=== PATIENT | male | born 1950 | race Caucasian/White ===

== ENCOUNTER 2020-02-03 00:32 | Inpatient (IN) | payer OTHER, SELFPAY ==
[2020-02-03] VITALS (11 sets, daily range): BP systolic 98–142; BP diastolic 60–88; PULSE 82–96; RESP 15–20; TEMP 36.2–36.8; O2SAT 96–100; BMI 18.7
--- NOTE | 2020-02-03 00:53 | ED.PSYCH ---
HPI - Psych General Chief Complaint: Psychiatric Symptoms Stated Complaint: psych eval Time Seen by Provider: 02/03/20 00:47 Source: patient and EMS Mode of arrival: EMS Limitations: no limitations History of Present Illness HPI Narrative: Patient comes to emergency room complaining suicidal ideation. Patient states for months he has been feeling weak, unable to do his daily activities due to depression. States that he no longer wants to live, states he is too depressed to come up with a plan to kill himself. Patient's girlfriend called EMS. Patient reports that he has not been eating much for the last few months MD complaint: suicidal ideation and feels depressed Related Data Allergies Allergy/AdvReac Type Severity Reaction Status Date / Time bee pollen [BEE STINGS] Allergy Unknown ARM Verified 02/03/20 00:43 SWELLING codeine [CODEINE] Allergy Unknown HIVES, Verified 02/03/20 00:43 NAUSEA bee stings Allergy Unknown Swelling Uncoded 02/03/20 00:43 Review of Systems Review of Systems: Constitutional : Complaining of Weight loss over the last 2-3 months, No Fever, No Chills, No Night Sweats, generalized weakness ENT/Mouth : No Hearing loss, No Ear Pain, No Nasal Congestion, No Sinus Pain, No Hoarseness, No sore throat, No Rhinorrhea, No Swallowing Difficulty Eyes: No Eye Pain, No Swelling, No Redness, No Foreign Body, No Discharge, No Vision Changes Cardiovascular : No Chest Pain, No SOB, No Dyspnea on Exertion, No Orthopnea, No Edema, No Palpitations Respiratory : No Cough, No Sputum, No Wheezing, No Smoke Exposure, No Dyspnea Gastrointestinal : No Nausea, No Vomiting, No Diarrhea, No Constipation, No abdominal Pain, No Hematochezia, No Melena Genitourinary : no irregular bleeding, No Dysuria, No Urinary Frequency, No Hematuria, No Urinary Incontinence, No Urgency, No Flank Pain, No Urinary Flow Changes, No Hesitancy Musculoskeletal : No joint pain, patient complaining of chronic pain ?all over? Skin : No Skin Lesions, No rash Neuro : No Weakness, No Numbness, No Paresthesias, No Loss of Consciousness, No Dizziness, No Headache Psych : No Anxiety/Panic, No Depression, No SI/HI/AH/VH, No Social Issues, Heme/Lymph: No Bruising, No Bleeding,No Lymphadenopathy Endocrine : No Polyuria, No Polydipsia, No Temperature Intolerance [facility] Past Medical History Medical History Auditory hallucinations Hepatitis C Hypertension Polysubstance abuse Seizures Social History Social History Advance Directives: No Advance Directives Information Provided: No Physical Exam Vital Signs: Vital Signs: Last Vital Signs Temp 97.6 F 02/03/20 00:44 Pulse 82 02/03/20 00:44 Resp 16 02/03/20 00:44 BP 142/88 H 02/03/20 00:44 Pulse Ox 100 02/03/20 00:44 Body Mass Index 18.7 Appearance: Alert. Oriented X3. No acute distress. Disheveled, cachectic Eyes: Pupils equal, round and reactive to light. ENT: Pharynx normal. Neck: Normal inspection. Neck supple. No lymph nodes noted. No crepitus CVS: Normal heart rate and rhythm. Pulses normal. Normal S1 and S2 Respiratory: No respiratory distress. Breath sounds normal. No Wheezing. No rales Abdomen: Soft and nontender. No rigidity. No distention. Skin: Skin warm and dry. Normal skin color. Normal skin turgor. Extremities: No lower extremity edema. No lower extremity edema. No Lacerations. No Rash Neuro: Oriented X 3. No motor deficit. No sensory deficit. Moving all extermities. No slurred speech. Psych: Flat affect, normal speech Course Course Course Narrative: Patient's labs are pending, medical clearance pending, [facility] consult pending. Sign-out given to Dr. Payan [facility] - Psych Restraints Face to Face Assessment: Face to Face Assessment: Current Situation: After assessment of the patient, a review of the pertinent medical record and a discussion with nursing staff, I feel the patient requires a restrain intervention. Reaction To: [] Medical Condition: [] Behavioral State: [] Continued Need: [] Lab Data Result diagrams: 02/03/20 01:01 02/03/20 01:01 Labs: Lab Results 02/03/20 Range/Units 01:01 WBC 6.8 (4.8-10.8) X10*3/uL RBC 5.27 (4.60-5.80) X10*6/uL Hgb 14.6 (14.0-18.0) g/dl Hct 46.0 (42-52) % MCV 87.3 (80-98) fL MCH 27.7 (27.0-33.0) pg MCHC 31.7 (31.0-36.0) g/dl RDW 13.2 (11.0-16.0) % Plt Count 214 (160-400) X10*3/uL MPV 10.6 (9.4-12.4) fL Immature Gran % (Auto) 0.0 (0.0-0.4) % Neut % (Auto) 44.5 L (45-73) % Lymph % (Auto) 43.8 H (20-40) % [place] % (Auto) 9.1 (2-11) % Eos % (Auto) 2.2 (0-4) % Baso % (Auto) 0.4 (0-2) % Lymph # (Auto) 3.0 (1.2-4.9) X10*3/uL Thomas # (Auto) 0.6 (0.1-1.2) X10*3/uL Eos # (Auto) 0.2 (0.0-0.4) X10*3/uL Baso # (Auto) 0.0 (0.0-0.2) X10*3/uL Abs Immat Gran (auto) 0.00 (0.00-0.03) X10*3/uL Absolute Neuts (auto) 3.0 (2.0-8.3) X10*3/uL Absolute Nucleated RBC 0.000 (0.0-0.012) X10*3/uL Nucleated RBC % (auto) 0.0 (0.0-0.2) /100WBC Discharge Plan Discharge Clinical Impression: Suicidal ideation
[2020-02-03 01:07] LABS: Basophils Percent Auto 0.4 % (0-2); Eosinophils Absolute Auto 0.2 X10*3/uL (0.0-0.4); Eosinophils Percent Auto 2.2 % (0-4); Hemoglobin 14.6 g/dl (14.0-18.0); Lymphocytes Percent Auto 43.8 % (20-40); Mean Corpuscular HGB Conc 31.7 g/dl (31.0-36.0); Mean Corpuscular Hemoglobin 27.7 pg (27.0-33.0); Mean Corpuscular Volume 87.3 fL (80-98); Mean Platelet Volume 10.6 fL (9.4-12.4); Monocytes Absolute Auto 0.6 X10*3/uL (0.1-1.2); Monocytes Percent Auto 9.1 % (2-11); Neutrophils Percent Auto 44.5 % (45-73); Platelet Count 214 X10*3/uL (160-400); Red Blood Count 5.27 X10*6/uL (4.60-5.80); Red Cell Distribution Width 13.2 % (11.0-16.0); White Blood Count 6.8 X10*3/uL (4.8-10.8)
[2020-02-03 01:08] LABS: MANUAL DIFF FLAG NO
[2020-02-03 01:38] LABS: Alanine Aminotransferase 18 U/L (0-40); Albumin Level 4.5 g/dL (3.5-5.0); Alkaline Phosphatase 53 U/L (39-117); Anion Gap 12 (12-20); Aspartate Amino Transferase 20 U/L (5-37); Bilirubin Direct 0.3 mg/dL (0.0-0.5); Bilirubin Total 0.7 mg/dL (0.0-1.0); Blood Urea Nitrogen 11 mg/dL (9-16); Calcium 9.5 mg/dL (8.4-10.2); Carbon Dioxide 31 mmol/L (22-29); Chloride 104 mmol/L (96-108); Creatinine Clr Calc Pharmacy 70.8; Estimated Glomerular Filt Rate > 60; Glucose Random 101 mg/dL (60-115); Potassium 3.6 mmol/l (3.3-5.1); Sodium 143 mmol/L (135-145); Total Protein 7.1 g/dL (6.5-8.0)
[2020-02-03 02:37] LABS: Prothrombin Time 12.3 SEC (10.8-13.0)
--- NOTE | 2020-02-03 03:31 | PC.NURSE ---
Patient ambulated to ED POD, gait secured, mood seems depressed, affect congruent to mood, N faxed/called/spoke with denis Morales clinician overnight per N, patient is in his room wandering, no distress observed/reported, will continue to monitor.
[2020-02-03 04:46] LABS: COVID-19 Test Negative (Negative)
--- NOTE | 2020-02-03 07:14 | PC.NURSE ---
Report received from GIRISH Rubio. Pt awake, pacing. Affect anxious. Pt anxious about his body, noting to RN that he is thin, showing his knees and shoulders to RN. Pt maintains that he is having difficulty eating, states he is unable to keep food down though has been able to drink strawberry ensure.
--- NOTE | 2020-02-03 08:18 | ECG_ITS ---
Test Reason : PLACEMENT Blood Pressure : / mmHG Vent. Rate : 086 BPM Atrial Rate : 086 BPM P-R Int : 128 ms QRS Dur : 088 ms QT Int : 350 ms P-R-T Axes : 081 066 062 degrees QTc Int : 418 ms Normal sinus rhythm with sinus arrhythmia Possible Left atrial enlargement Borderline ECG When compared with ECG of 23-MAR-2018 15:42, Vent. rate has increased BY 29 BPM Borderline criteria for Lateral infarct are no longer Present T wave inversion no longer evident in Inferior leads Referred By: Katherine Davenport Electronically Signed By:AMELIA KEANE MD
--- NOTE | 2020-02-03 08:40 | PC.NURSE ---
Pt seen by N, continues to pace in room.
--- NOTE | 2020-02-03 09:23 | PC.NURSE ---
Pt weight: 57 KG
[2020-02-03] MEDS: LORazepam 1 MG TABLET PO ×2 (09:25→15:51)
--- NOTE | 2020-02-03 11:47 | PC.NURSE ---
Pt able to eat yogurt, drank an ensure after receiving Ativan, then lay down to rest. Pt currently resting, resp unlabored.
[2020-02-03 14:24] LABS: Glucose Urine UA NEG (NEG); Leukocyte Esterase Urine NEG (NEG); Nitrite Urine NEG (NEG); PH 6.5 (5.0-8.0); Urine Blood NEG (NEG); Urine Ketones 5 MG/DL (NEG); Urine Protein TRACE MG/DL (NEG-TRACE)
[2020-02-03 14:25] LABS: Appearance Urine HAZY; Color Urine YELLOW
[2020-02-03 14:54] LABS: Amphetamine Screen Urine Not Detected (Not Detect); Barbiturates, Urine Not Detected (Not Detect); Benzodiazepines Screen Urine Not Detected (Not Detect); Cannabinoid Screen Urine Not Detected (Not Detect); Cocaine Screen Urine Not Detected (Not Detect); Opiate Screen Urine Not Detected (Not Detect); Phencyclidine Screen Urine Not Detected (Not Detect)
--- NOTE | 2020-02-03 17:15 | PC.NURSE ---
Pt out on unit, watching television, reports he feels much better, interested in shaving, but aware that he can't shave on unit.
--- NOTE | 2020-02-03 18:55 | PC.NURSE ---
Report given to ronak meng on m5
--- NOTE | 2020-02-03 19:03 | PC.NURSE ---
Patient calm, quiet, and pleasant. Wandering in POD was seen on phone few times, RN to RN report done with M5, EKG is in process of getting done, awaiting admission to , per report patient has been eating well, no distress observed/reported, will continue to monitor.
[2020-02-03] MEDS: LORazepam 1 MG TABLET 0.5 MG PO (21:50)
[2020-02-03] MEDS: Mirtazapine 15 MG TABLET PO (21:50)
[2020-02-03] MEDS: Flu Vacc QS2020-21(6mos up)/PF 0.5 ML SYRINGE IM (21:51)
[2020-02-03] MEDS: Acetaminophen 325 MG TABLET 650 MG PO (21:58)
--- NOTE | 2020-02-03 22:30 | PC.ADMIT ---
PT WAS REFERRED TO BY N VIA [facility]. LEGAL CV. DX MDD. PT HAS NOT SEEN PCP OR ANY OUTPATIENT PROVIDERS FOR OVER A YEAR. REPORTS THAT HE STOPPED SEEING PROVIDERS AFTER WEANING OFF OF METHADONE. REPORTS HX OF SUBSTANCE ABUSE. NO ALCOHOL OR STREET DRUG USE. SILVER WAS NEGATIVE. REPORTS COMING TO THE ER AFTER DISCUSSION WITH S.O. ABOUT WANTING TREATMENT FOR ANXIETY. S.O. HAS PROVIDERS AND PROVIDERS THAT COME INTO THE HOUSE AND WOULD LIKE THE SAME SERVICES. WOULD ALSO LIKE TO ESTABLISH BEHAVIORAL HEALTH PROVIDERS. PT IS BRIGHT AND ARTICULATE. IS NOT ON ANY PRESCRIBED MEDICATIONS AT THIS TIME. DOES HAVE HX OF ARTHRITIS, HTN, HEP C, HX OF SEIZURES WHEN IN W/D. ACCEPTED FLU SHOT. ORIENTED TO UNIT.
[2020-02-03] MEDS: hydrOXYzine HCL 25 MG TABLET PO (23:31)
[2020-02-04 06:25] VITALS: BP 111/61; PULSE 58; RESP 16; TEMP 36.6; O2SAT 97
[2020-02-04] MEDS: Nicotine 7 MG PATCH.TD24 TRANSDERMA (09:36)
[2020-02-04] MEDS: Acetaminophen 325 MG TABLET 650 MG PO ×2 (09:47→19:00)
[2020-02-04] MEDS: LORazepam 1 MG TABLET 0.5 MG PO ×2 (09:51→18:09)
--- NOTE | 2020-02-04 17:48 | P.HPPS_ITS ---
HPI Chief Complaint: MDD Severe Recurrent Sources of Information: patient interviewed, chart reviewed and crisis/core team assessment reviewed HPI Narrative: I pace a lot . The anxiety is terrible . 69 yo male, living with his girlfriend admitted for an increase in depressive symptoms, racing and intrusive thoughts and anxiety. Symptoms he reports have been for approx 2 months, crisis team eval reports since Feb 2019. Reports pain- neck, back, hip, along with sleep disturbance and appetite disturbance with denial of weight loss. He also has not been attending to ADL tasks. Reports SI and asking his girlfriend to shoot him. Pt identifies no specific stressor/precipitant to symptom increase.He reports by history a resistance to medication, however, reports he will accept medication to assist in symptom mgt. Past Psychiatric History: In Pt: 2018 x 1; 2010 x1. History of psychosis per Van doll. Out Pt: No current providers. Trials: Xanax, Ambien, Restoril, Ativan Medical Evaluation Reviewed: Yes [facility] Medical History Auditory hallucinations Hepatitis C Hypertension Polysubstance abuse Seizures Family History: Reports addiction and mental illness history in his family. Social History: Lives with his partner, Ronna whom he has been with for fifteen years he reports Substance History: Methadone by history-stopped in 2018; Cannabis increase over the past several months. Trauma History: Yes . Declines to elaborate on this. Diagnostics Vital Signs (24Hr): Vital Signs - 24 hr 02/03/20 18:00 02/03/20 21:50 02/04/20 06:25 Temperature 98.2 F 97.9 F Pulse Rate 88 58 Respiratory Rate 20 16 Blood Pressure 102/60 111/61 Pulse Oximetry 96 97 Body Mass Index 18.7 Labs Results: 02/03/20 01:01 02/03/20 01:01 Labs: Laboratory Results - last 48 hr 02/03/20 02/03/20 02/03/20 01:01 01:01 02:08 WBC 6.8 RBC 5.27 Hgb 14.6 Hct 46.0 MCV 87.3 MCH 27.7 MCHC 31.7 RDW 13.2 Plt Count 214 MPV 10.6 Immature Gran % (Auto) 0.0 Neut % (Auto) 44.5 L Lymph % (Auto) 43.8 H [place] % (Auto) 9.1 Eos % (Auto) 2.2 Baso % (Auto) 0.4 Lymph # (Auto) 3.0 [place] # (Auto) 0.6 Eos # (Auto) 0.2 Baso # (Auto) 0.0 Abs Immat Gran (auto) 0.00 Absolute Neuts (auto) 3.0 Absolute Nucleated RBC 0.000 Nucleated RBC % (auto) 0.0 PT 12.3 INR 1.0 Sodium 143 Potassium 3.6 Chloride 104 Carbon Dioxide 31 H Anion Gap 12 BUN 11 Creatinine 0.79 Estim Creat Clear Calc 70.8 Estimated GFR > 60 Random Glucose 101 Calcium 9.5 Total Bilirubin 0.7 Direct Bilirubin 0.3 AST 20 ALT 18 Alkaline Phosphatase 53 Total Protein 7.1 Albumin 4.5 Urine Color Urine Appearance Urine pH Ur Specific [place] Urine Protein Urine Glucose (UA) Urine Ketones Urine Blood Urine Nitrite Ur Leukocyte Esterase Urine Opiates Screen Ur Barbiturates Screen Ur Phencyclidine Scrn Ur Amphetamines Screen U Benzodiazepines Scrn Urine Cocaine Screen U Marijuana (THC) Screen COVID-19 (SUKI) COVID-GigaCrete 02/03/20 02/03/20 02/03/20 04:11 14:16 14:16 WBC RBC Hgb Hct MCV MCH MCHC RDW Plt Count MPV Immature Gran % (Auto) Neut % (Auto) Lymph % (Auto) [place] % (Auto) Eos % (Auto) Baso % (Auto) Lymph # (Auto) [place] # (Auto) Eos # (Auto) Baso # (Auto) Abs Immat Gran (auto) Absolute Neuts (auto) Absolute Nucleated RBC Nucleated RBC % (auto) PT INR Sodium Potassium Chloride Carbon Dioxide Anion Gap BUN Creatinine Estim Creat Clear Calc Estimated GFR Random Glucose Calcium Total Bilirubin Direct Bilirubin AST ALT Alkaline Phosphatase Total Protein Albumin Urine Color YELLOW Urine Appearance HAZY Urine pH 6.5 Ur Specific [place] 1.020 Urine Protein TRACE Urine Glucose (UA) NEG Urine Ketones 5 Urine Blood NEG Urine Nitrite NEG Ur Leukocyte Esterase NEG Urine Opiates Screen Not Detected Ur Barbiturates Screen Not Detected Ur Phencyclidine Scrn Not Detected Ur Amphetamines Screen Not Detected U Benzodiazepines Scrn Not Detected Urine Cocaine Screen Not Detected U Marijuana (THC) Screen Not Detected COVID-19 (SUKI) Negative COVID-GigaCrete See Note Meds/Allergies Meds Home Medications Acetaminophen (Acetaminophen 325 Mg Tablet) 650 mg PO Q6H PRN PRN Reason: Headache/Pain Mild Scale (1-3) Last Admin: 02/04/20 09:47 Dose: 650 mg Documented by: Al Hydroxide/Mg Hydroxide (Magnesium Hydrox/Alum Hydrox 30 Ml Oral.Susp) 30 ml PO Q6H PRN PRN Reason: Heartburn/Nausea Hydroxyzine HCl (Hydroxyzine Hcl 25 Mg Tablet) 25 mg PO BEDTIME PRN PRN Reason: Anxiety Last Admin: 02/03/20 23:31 Dose: 25 mg Documented by: Lorazepam (Lorazepam 1 Mg Tablet) 0.5 mg PO Q4H PRN PRN Reason: Anxiety Last Admin: 02/04/20 18:09 Dose: 0.5 mg Documented by: Magnesium Hydroxide (Milk Of Magnesia 30 Ml Oral.Susp) 30 ml PO DAILY PRN PRN Reason: Constipation Mirtazapine (Mirtazapine 15 Mg Tablet) 15 mg PO BEDTIME [facility] Last Admin: 02/03/20 21:50 Dose: 15 mg Documented by: Nicotine (Nicotine 7 Mg Patch.Td24) 7 mg TRANSDERMA DAILY [facility] Last Admin: 02/04/20 09:36 Dose: 7 mg Documented by: Nicotine Polacrilex (Nicotine Polacrilex 2 Mg Lozenge) 2 mg BUCCAL Q2H PRN PRN Reason: Nicotine Cravings Allergies Allergies Allergy/AdvReac Type Severity Reaction Status Date / Time bee pollen [BEE STINGS] Allergy Unknown ARM Verified 02/03/20 00:43 SWELLING codeine [CODEINE] Allergy Unknown HIVES, Verified 02/03/20 00:43 NAUSEA bee stings Allergy Unknown Swelling Uncoded 02/03/20 00:43 Mental Status Exam Mental Status Exam Patient Appearance: Fatigued and Disheveled Patient Orientation: Person, Place and Situation Level of Consciousness: Awake, Appropriate, Disoriented (to time) and Alert Patient Behavior: Appropriate, Talkative, Cooperative, Anxious and Fatigued Mood Description: Depressed and Anxious Affect Description: Flat Patient Cognition Impaired: Yes Ability to Follow Directions: Fair Speech Pattern: Clear, Impoverished, Difficulty Finding Words and Spontaneous Speech Memory Description: Remote Impaired, Immediate Impaired, Episodic Impaired and Recent Impaired Hallucinations: None Delusions: Not Present Thought Process: Distracted and Rumination Thought Content: positive for [place] and positive for [place]sever[place] Depressive Symptoms: Increased Anxiety, Insomnia, Diff. Making Decisions, Increased Irritability, Difficulty Sleeping, Changes in Appetite, Loss of Int. in Activity, Feelings of Worthlessness, Hopelessness, Isolating-Friends/Family, Unhappiness, Increased Fatigue, Low Self Esteem, Loss of Energy and Back Pain Judgement: Poor Assessment & Plan Assessment & Plan (1) Depression: Status: Acute Code(s): F32.9 - Major depressive disorder, single episode, unspecified Assessment and Plan: -Continue Remeron -Abilify 1 mg hs-hx of psychotic depression 2019 Patient educated on: medication risk/benefits and therapeutic strategies Informed Consent: does not understand and further education needed Reason for continued inpatient stay Substantial Risk for: harm to self, inability to function, rapid decompensation and med/psych decompensation
[2020-02-04 18:55] VITALS: BP 92/54; PULSE 83; TEMP 36.4
[2020-02-04] MEDS: Mirtazapine 15 MG TABLET PO (20:52)
[2020-02-05 06:25] VITALS: BP 125/71; RESP 16; TEMP 36.4; O2SAT 100
[2020-02-05] MEDS: Acetaminophen 325 MG TABLET 650 MG PO ×2 (06:33→13:16)
[2020-02-05] MEDS: LORazepam 0.5 MG TABLET PO ×3 (06:34→18:14)
[2020-02-05] MEDS: Nicotine 7 MG PATCH.TD24 TRANSDERMA (08:19)
--- NOTE | 2020-02-05 18:02 | P.PNPSI_ITS ---
Subjective Subjective Date of Service: 02/05/20 Reason For Visit: MDD Severe Recurrent Interim History: Pt reports he is tolerating medicine changes and is feeling tired today. Medication Compliance: Yes Side effects from medications: No Attending Groups: Intermittent Review of Systems Psychiatric: Reports anxiety, Reports change in appetite (states he is eating better than at home) and Reports depression Mental Status Exam Mental Status Exam Patient Appearance: Disheveled Patient Orientation: Person, Place, Time and Situation Level of Consciousness: Awake and Alert Patient Behavior: Appropriate and Confused (at times) Mood Description: Depressed Affect Description: Flat Patient Cognition Impaired: Yes Ability to Follow Directions: Fair Speech Pattern: Clear, Appropriate and Spontaneous Speech Memory Description: Remote Impaired, Immediate Impaired and Recent Impaired Hallucinations: None Delusions: Not Present Thought Process: Distracted, Rumination and Confusion (at times) Thought Content: positive for [place] Depressive Symptoms: Increased Anxiety, Insomnia, Difficulty Sleeping, Changes in Appetite, Significant Weight Loss and Loss of Int. in Activity Judgement: Fair Diagnostics Vital Signs (24Hr): Vital Signs - 24 hr 02/04/20 18:55 02/05/20 06:25 Temperature 97.6 F 97.6 F Pulse Rate 83 Respiratory Rate 16 Blood Pressure 92/54 L 125/71 Pulse Oximetry 100 Body Mass Index 18.7 Labs Results: 02/03/20 01:01 02/03/20 01:01 Medications Medications Current Medications Generic Name Dose Route Start Last Admin Trade Name Freq PRN Reason Stop Dose Admin Acetaminophen 650 mg 02/03/20 20:01 02/05/20 13:16 Acetaminophen 325 Mg Tablet PO 650 mg Q6H PRN Administration Headache/Pain Mild Scale (1-3) Al Hydroxide/Mg Hydroxide 30 ml 02/03/20 20:01 Magnesium Hydrox/Alum Hydrox 30 Ml Oral.Susp PO Q6H PRN Heartburn/Nausea Hydroxyzine HCl 25 mg 02/03/20 20:01 02/03/20 23:31 Hydroxyzine Hcl 25 Mg Tablet PO 25 mg BEDTIME PRN Administration Anxiety Lorazepam 0.5 mg 02/04/20 18:33 02/05/20 11:15 Lorazepam 0.5 Mg Tablet PO 0.5 mg Q4H PRN Administration Anxiety Magnesium Hydroxide 30 ml 02/03/20 20:01 Milk Of Magnesia 30 Ml Oral.Susp PO DAILY PRN Constipation Mirtazapine 15 mg 02/03/20 21:00 02/04/20 20:52 Mirtazapine 15 Mg Tablet PO 15 mg BEDTIME CANDY Administration Nicotine 7 mg 02/04/20 09:00 02/05/20 08:19 Nicotine 7 Mg Patch.Td24 TRANSDERMA 7 mg DAILY CANDY Administration Nicotine Polacrilex 2 mg 02/03/20 20:55 Nicotine Polacrilex 2 Mg Lozenge BUCCAL Q2H PRN Nicotine Cravings Allergies Allergies Allergy/AdvReac Type Severity Reaction Status Date / Time bee pollen [BEE STINGS] Allergy Unknown ARM Verified 02/03/20 00:43 SWELLING codeine [CODEINE] Allergy Unknown HIVES, Verified 02/03/20 00:43 NAUSEA bee stings Allergy Unknown Swelling Uncoded 02/03/20 00:43 Assessment & Plan Greater than 50% of the session was spent on counseling and/or coordination of care Patient educated on: medication risk/benefits and therapeutic strategies Informed Consent: further education needed Reason for contiued inpatient stay Substantial Risk for: harm to self, inability to function and med/psych decompensation
[2020-02-05 18:35] VITALS: BP 91/53; PULSE 85; TEMP 37
[2020-02-05] MEDS: ARIPiprazole 2 MG TABLET 1 MG PO (20:55)
[2020-02-05] MEDS: hydrOXYzine HCL 25 MG TABLET PO (20:57)
[2020-02-05] MEDS: Mirtazapine 15 MG TABLET PO (20:57)
[2020-02-06 06:40] VITALS: BP 111/68; PULSE 60; RESP 18; TEMP 36.8; O2SAT 98
[2020-02-06] MEDS: Nicotine 7 MG PATCH.TD24 TRANSDERMA (08:16)
[2020-02-06] MEDS: Ibuprofen 400 MG TABLET PO (08:23)
[2020-02-06] MEDS: LORazepam 0.5 MG TABLET PO ×2 (08:23→18:55)
--- NOTE | 2020-02-06 16:50 | P.PNPSI_ITS ---
Subjective Subjective Date of Service: 02/06/20 Reason For Visit: MDD Severe Recurrent Subjective Notes: Conditional Voluntary Interim History: Gilbert reports he believes his eating and sleeping are improving. Discussed PT/OT evaluation. Tolerating Abilify, discussed decline in his functioning at home with medicine noncompliance after his last admission due to side effects. Medication Compliance: Yes Side effects from medications: No (denies) Attending Groups: No (pt denies attendance) Review of Systems Reports memory loss Psychiatric: Reports abnormal sleep pattern, Reports anxiety, Reports change in appetite, Reports depression, Reports difficulty concentrating, Reports hopelessness, Reports anhedonia and Reports memory loss Mental Status Exam Mental Status Exam Patient Appearance: Disheveled Patient Orientation: Person, Place, Time and Situation Level of Consciousness: Awake, Appropriate and Alert Patient Behavior: Appropriate and Talkative Mood Description: Depressed Affect Description: Flat Patient Cognition Impaired: No Ability to Follow Directions: Good Speech Pattern: Clear, Appropriate and Spontaneous Speech Memory Description: Remote Impaired, Episodic Impaired and Recent Impaired Hallucinations: None Delusions: Not Present Thought Process: Rumination Thought Content: positive for [place] and positive for Circumstantial Depressive Symptoms: Insomnia, Difficulty Sleeping, Significant Weight Loss, Hopelessness, Unhappiness, Increased Fatigue, Loss of Energy and Difficulty Concentrating Judgement: Fair Diagnostics Vital Signs (24Hr): Vital Signs - 24 hr 02/05/20 18:35 02/06/20 06:40 Temperature 98.6 F 98.3 F Pulse Rate 85 60 Respiratory Rate 18 Blood Pressure 91/53 L 111/68 Pulse Oximetry 98 Body Mass Index 18.7 Labs Results: 02/03/20 01:01 02/03/20 01:01 Medications Medications Current Medications Generic Name Dose Route Start Last Admin Trade Name Freq PRN Reason Stop Dose Admin Acetaminophen 650 mg 02/03/20 20:01 02/05/20 13:16 Acetaminophen 325 Mg Tablet PO 650 mg Q6H PRN Administration Headache/Pain Mild Scale (1-3) Al Hydroxide/Mg Hydroxide 30 ml 02/03/20 20:01 Magnesium Hydrox/Alum Hydrox 30 Ml Oral.Susp PO Q6H PRN Heartburn/Nausea Aripiprazole 1 mg 02/05/20 21:00 02/05/20 20:55 Aripiprazole 2 Mg Tablet PO 1 mg BEDTIME CANDY Administration Hydroxyzine HCl 25 mg 02/03/20 20:01 02/05/20 20:57 Hydroxyzine Hcl 25 Mg Tablet PO 25 mg BEDTIME PRN Administration Anxiety Ibuprofen 400 mg 02/05/20 23:12 02/06/20 08:23 Ibuprofen 400 Mg Tablet PO 400 mg Q6H PRN Administration Pain, Moderate (Pain Scale 4-6 Lorazepam 0.5 mg 02/04/20 18:33 02/06/20 08:23 Lorazepam 0.5 Mg Tablet PO 0.5 mg Q4H PRN Administration Anxiety Magnesium Hydroxide 30 ml 02/03/20 20:01 Milk Of Magnesia 30 Ml Oral.Susp PO DAILY PRN Constipation Mirtazapine 15 mg 02/03/20 21:00 02/05/20 20:57 Mirtazapine 15 Mg Tablet PO 15 mg BEDTIME CANDY Administration Nicotine 7 mg 02/04/20 09:00 02/06/20 08:16 Nicotine 7 Mg Patch.Td24 TRANSDERMA 7 mg DAILY CANDY Administration Nicotine Polacrilex 2 mg 02/03/20 20:55 Nicotine Polacrilex 2 Mg Lozenge BUCCAL Q2H PRN Nicotine Cravings Allergies Allergies Allergy/AdvReac Type Severity Reaction Status Date / Time bee pollen [BEE STINGS] Allergy Unknown ARM Verified 02/03/20 00:43 SWELLING codeine [CODEINE] Allergy Unknown HIVES, Verified 02/03/20 00:43 NAUSEA bee stings Allergy Unknown Swelling Uncoded 02/03/20 00:43 Assessment & Plan Assessment & Plan (1) Depression: Status: Acute Code(s): F32.9 - Major depressive disorder, single episode, unspecified Assessment and Plan: -Continue current regime -PT/OT consults to assess his functional needs (2) Suicidal ideation: Status: Acute Code(s): R45.851 - Suicidal ideations Assessment and Plan: -Pt reports feeling satisfied to be in care with current plan. Denies SI, plan or intent today. Greater than 50% of the session was spent on counseling and/or coordination of care Patient educated on: diagnosis, medication risk/benefits and therapeutic strategies Informed Consent: understands and further education needed Reason for contiued inpatient stay Substantial Risk for: harm to self, inability to function, rapid decompensation and med/psych decompensation
[2020-02-06] MEDS: Acetaminophen 325 MG TABLET 650 MG PO (18:55)
[2020-02-06 18:59] VITALS: BP 94/60; PULSE 107; TEMP 37
[2020-02-07] MEDS: Mirtazapine 15 MG TABLET PO ×2 (00:44→21:27)
[2020-02-07] MEDS: ARIPiprazole 2 MG TABLET 1 MG PO (00:44)
[2020-02-07 06:27] VITALS: BP 117/72; PULSE 83; RESP 14; TEMP 36.9; O2SAT 100
[2020-02-07 09:13] VITALS: BP 117/72; PULSE 83; O2SAT 100
[2020-02-07] MEDS: Nicotine 7 MG PATCH.TD24 TRANSDERMA (09:39)
[2020-02-07] MEDS: LORazepam 0.5 MG TABLET PO ×2 (09:45→18:06)
[2020-02-07] MEDS: Ibuprofen 400 MG TABLET PO ×2 (09:45→18:06)
--- NOTE | 2020-02-07 15:41 | HO.PSYCHPN ---
Subjective Subjective Date of Service: 02/07/20 Reason For Visit: MDD Severe Recurrent Subjective Notes: Conditional Voluntary Interim History: Pt reports he is feeling improved with improved sleep and appetite. Medication Compliance: Yes Side effects from medications: No Attending Groups: No Review of Systems Reports memory loss Psychiatric: Reports anxiety, Reports depression, Reports hopelessness, Reports anhedonia, Reports memory loss and Reports suicidal ideation (denies today) Mental Status Exam Mental Status Exam Patient Appearance: Well Grooomed Patient Orientation: Person, Place, Time and Situation Level of Consciousness: Awake and Appropriate Patient Behavior: Appropriate and Talkative Mood Description: Depressed Affect Description: Flat Patient Cognition Impaired: No Ability to Follow Directions: Good Speech Pattern: Appropriate and Spontaneous Speech Memory Description: Intact Hallucinations: None Delusions: Not Present Thought Process: Rumination Thought Content: positive for Perseveration Depressive Symptoms: Increased Anxiety, Insomnia, Difficulty Sleeping, Changes in Appetite, Loss of Int. in Activity, Feelings of Worthlessness, Hopelessness, Unhappiness, Increased Fatigue, Low Self Esteem, Loss of Energy and Difficulty Concentrating Judgement: Fair Diagnostics Vital Signs (24Hr): Vital Signs - 24 hr 02/06/20 18:59 02/07/20 06:27 02/07/20 09:13 Temperature 98.6 F 98.5 F Pulse Rate 107 H 83 83 Respiratory Rate 14 Blood Pressure 94/60 117/72 117/72 Pulse Oximetry 100 100 Body Mass Index 0.0 Labs Results: 02/03/20 01:01 02/03/20 01:01 Medications Medications Current Medications Generic Name Dose Route Start Last Admin Trade Name Freq PRN Reason Stop Dose Admin Acetaminophen 650 mg 02/03/20 20:01 02/06/20 18:55 Acetaminophen 325 Mg Tablet PO 650 mg Q6H PRN Administration Headache/Pain Mild Scale (1-3) Al Hydroxide/Mg Hydroxide 30 ml 02/03/20 20:01 Magnesium Hydrox/Alum Hydrox 30 Ml Oral.Susp PO Q6H PRN Heartburn/Nausea Aripiprazole 1 mg 02/05/20 21:00 02/07/20 00:44 Aripiprazole 2 Mg Tablet PO 1 mg BEDTIME CANDY Administration Hydroxyzine HCl 25 mg 02/03/20 20:01 02/05/20 20:57 Hydroxyzine Hcl 25 Mg Tablet PO 25 mg BEDTIME PRN Administration Anxiety Ibuprofen 400 mg 02/05/20 23:12 02/07/20 09:45 Ibuprofen 400 Mg Tablet PO 400 mg Q6H PRN Administration Pain, Moderate (Pain Scale 4-6 Lorazepam 0.5 mg 02/04/20 18:33 02/07/20 09:45 Lorazepam 0.5 Mg Tablet PO 0.5 mg Q4H PRN Administration Anxiety Magnesium Hydroxide 30 ml 02/03/20 20:01 Milk Of Magnesia 30 Ml Oral.Susp PO DAILY PRN Constipation Mirtazapine 15 mg 02/03/20 21:00 02/07/20 00:44 Mirtazapine 15 Mg Tablet PO 15 mg BEDTIME CANDY Administration Nicotine 7 mg 02/04/20 09:00 02/07/20 09:39 Nicotine 7 Mg Patch.Td24 TRANSDERMA 7 mg DAILY CANDY Administration Nicotine Polacrilex 2 mg 02/03/20 20:55 Nicotine Polacrilex 2 Mg Lozenge BUCCAL Q2H PRN Nicotine Cravings Allergies Allergies Allergy/AdvReac Type Severity Reaction Status Date / Time bee pollen [BEE STINGS] Allergy Unknown ARM Verified 02/03/20 00:43 SWELLING codeine [CODEINE] Allergy Unknown HIVES, Verified 02/03/20 00:43 NAUSEA bee stings Allergy Unknown Swelling Uncoded 02/03/20 00:43 Assessment & Plan Assessment & Plan (1) Depression: Status: Acute Code(s): F32.9 - Major depressive disorder, single episode, unspecified Assessment and Plan: -Increase Abilify to 2 mg daily Greater than 50% of the session was spent on counseling and/or coordination of care Patient educated on: medication risk/benefits and therapeutic strategies Informed Consent: further education needed Reason for contiued inpatient stay Substantial Risk for: harm to self, inability to function and rapid decompensation
[2020-02-07 16:20] VITALS: BP 89/53; PULSE 84; TEMP 36.5
[2020-02-07 18:09] VITALS: BP 100/52; PULSE 72
[2020-02-07] MEDS: ARIPiprazole 2 MG TABLET PO (21:27)
[2020-02-08 06:30] VITALS: BP 106/61; PULSE 70; RESP 14; TEMP 36.7; O2SAT 99
[2020-02-08] MEDS: Nicotine 7 MG PATCH.TD24 TRANSDERMA (10:50)
[2020-02-08] MEDS: Ibuprofen 400 MG TABLET PO ×2 (10:51→18:46)
[2020-02-08] MEDS: LORazepam 0.5 MG TABLET PO ×2 (10:51→18:46)
[2020-02-08 18:00] VITALS: BP 118/67; PULSE 61; TEMP 36.9
[2020-02-08] MEDS: ARIPiprazole 2 MG TABLET PO (20:54)
[2020-02-08] MEDS: Mirtazapine 15 MG TABLET PO (20:54)
--- NOTE | 2020-02-08 23:59 | P.PNPSI_ITS ---
Subjective Subjective Date of Service: 02/09/20 Reason For Visit: MDD Severe Recurrent Subjective Notes: Conditional Voluntary Interim History: patient cooperative and seen flat somewhat isolated withdrawn Medication Compliance: Yes Review of Systems Reports memory loss Psychiatric: Reports memory loss Mental Status Exam Mental Status Exam Patient Appearance: Well Grooomed Patient Orientation: Person, Place, Time and Situation Level of Consciousness: Awake and Appropriate Patient Behavior: Appropriate and Talkative Mood Description: Depressed Affect Description: Flat Patient Cognition Impaired: No Ability to Follow Directions: Good Speech Pattern: Appropriate and Spontaneous Speech Memory Description: Intact Hallucinations: None Delusions: Not Present Thought Process: Rumination Thought Content: positive for Perseveration Depressive Symptoms: Increased Anxiety, Insomnia, Difficulty Sleeping, Changes in Appetite, Loss of Int. in Activity, Feelings of Worthlessness, Hopelessness, Unhappiness, Increased Fatigue, Low Self Esteem, Loss of Energy and Difficulty Concentrating Judgement: Fair Diagnostics Vital Signs (24Hr): Vital Signs - 24 hr 02/08/20 06:30 02/08/20 18:00 Temperature 98.0 F 98.4 F Pulse Rate 70 61 Respiratory Rate 14 Blood Pressure 106/61 118/67 Pulse Oximetry 99 Body Mass Index 0.0 Labs Results: 02/03/20 01:01 02/03/20 01:01 Medications Medications Current Medications Generic Name Dose Route Start Last Admin Trade Name Freq PRN Reason Stop Dose Admin Acetaminophen 650 mg 02/03/20 20:01 02/06/20 18:55 Acetaminophen 325 Mg Tablet PO 650 mg Q6H PRN Administration Headache/Pain Mild Scale (1-3) Al Hydroxide/Mg Hydroxide 30 ml 02/03/20 20:01 Magnesium Hydrox/Alum Hydrox 30 Ml Oral.Susp PO Q6H PRN Heartburn/Nausea Aripiprazole 2 mg 02/07/20 21:00 02/08/20 20:54 Aripiprazole 2 Mg Tablet PO 2 mg BEDTIME CANDY Administration Hydroxyzine HCl 25 mg 02/03/20 20:01 02/05/20 20:57 Hydroxyzine Hcl 25 Mg Tablet PO 25 mg BEDTIME PRN Administration Anxiety Ibuprofen 400 mg 02/05/20 23:12 02/08/20 18:46 Ibuprofen 400 Mg Tablet PO 400 mg Q6H PRN Administration Pain, Moderate (Pain Scale 4-6 Lorazepam 0.5 mg 02/04/20 18:33 12/25/20 18:46 Lorazepam 0.5 Mg Tablet PO 0.5 mg Q4H PRN Administration Anxiety Magnesium Hydroxide 30 ml 02/03/20 20:01 Milk Of Magnesia 30 Ml Oral.Susp PO DAILY PRN Constipation Mirtazapine 15 mg 02/03/20 21:00 02/08/20 20:54 Mirtazapine 15 Mg Tablet PO 15 mg BEDTIME CANDY Administration Nicotine 7 mg 02/04/20 09:00 02/08/20 10:50 Nicotine 7 Mg Patch.Td24 TRANSDERMA 7 mg DAILY CANDY Administration Nicotine Polacrilex 2 mg 02/03/20 20:55 Nicotine Polacrilex 2 Mg Lozenge BUCCAL Q2H PRN Nicotine Cravings Allergies Allergies Allergy/AdvReac Type Severity Reaction Status Date / Time bee pollen [BEE STINGS] Allergy Unknown ARM Verified 02/03/20 00:43 SWELLING codeine [CODEINE] Allergy Unknown HIVES, Verified 02/03/20 00:43 NAUSEA bee stings Allergy Unknown Swelling Uncoded 02/03/20 00:43 Assessment & Plan Assessment & Plan (1) Depression: Status: Acute Code(s): F32.9 - Major depressive disorder, single episode, unspecified Assessment and Plan: continue mirtazapine in [facility] continue treatment plan (2) Suicidal ideation: Status: Acute Code(s): R45.851 - Suicidal ideations Greater than 50% of the session was spent on counseling and/or coordination of care
[2020-02-09 06:00] VITALS: BP 93/50; PULSE 72; TEMP 36.7
[2020-02-09] MEDS: Nicotine 7 MG PATCH.TD24 TRANSDERMA (08:41)
[2020-02-09] MEDS: LORazepam 0.5 MG TABLET PO ×3 (08:42→18:47)
[2020-02-09] MEDS: Ibuprofen 400 MG TABLET PO ×2 (08:42→18:47)
[2020-02-09] MEDS: Acetaminophen 325 MG TABLET 650 MG PO (13:38)
[2020-02-09 17:10] VITALS: BP 95/54; PULSE 78; TEMP 37
[2020-02-09] MEDS: ARIPiprazole 2 MG TABLET PO (20:23)
[2020-02-09] MEDS: Mirtazapine 15 MG TABLET 22.5 MG PO (20:24)
--- NOTE | 2020-02-09 22:10 | HO.PSYCHPN ---
Subjective Subjective Date of Service: 02/10/20 Reason For Visit: MDD Severe Recurrent Interim History: patient depressed flat but future oriented feeling better on current medication Review of Systems Reports memory loss Psychiatric: Reports memory loss Mental Status Exam Mental Status Exam Patient Appearance: Well Grooomed Patient Orientation: Person, Place, Time and Situation Level of Consciousness: Awake and Appropriate Patient Behavior: Appropriate and Talkative Mood Description: Depressed Affect Description: Flat Patient Cognition Impaired: No Ability to Follow Directions: Good Speech Pattern: Appropriate and Spontaneous Speech Memory Description: Intact Hallucinations: None Delusions: Not Present Thought Process: Rumination Thought Content: positive for Perseveration Depressive Symptoms: Increased Anxiety, Insomnia, Difficulty Sleeping, Changes in Appetite, Loss of Int. in Activity, Feelings of Worthlessness, Hopelessness, Unhappiness, Increased Fatigue, Low Self Esteem, Loss of Energy and Difficulty Concentrating Judgement: Fair Diagnostics Vital Signs (24Hr): Vital Signs - 24 hr 02/09/20 06:00 Temperature 98.0 F Pulse Rate 72 Blood Pressure 93/50 L Body Mass Index 0.0 Labs Results: 02/03/20 01:01 02/03/20 01:01 Medications Medications Current Medications Generic Name Dose Route Start Last Admin Trade Name Freq PRN Reason Stop Dose Admin Acetaminophen 650 mg 02/03/20 20:01 02/09/20 13:38 Acetaminophen 325 Mg Tablet PO 650 mg Q6H PRN Administration Headache/Pain Mild Scale (1-3) Al Hydroxide/Mg Hydroxide 30 ml 02/03/20 20:01 Magnesium Hydrox/Alum Hydrox 30 Ml Oral.Susp PO Q6H PRN Heartburn/Nausea Aripiprazole 2 mg 02/07/20 21:00 02/09/20 20:23 Aripiprazole 2 Mg Tablet PO 2 mg BEDTIME CANDY Administration Hydroxyzine HCl 25 mg 02/03/20 20:01 02/05/20 20:57 Hydroxyzine Hcl 25 Mg Tablet PO 25 mg BEDTIME PRN Administration Anxiety Ibuprofen 400 mg 02/05/20 23:12 02/09/20 18:47 Ibuprofen 400 Mg Tablet PO 400 mg Q6H PRN Administration Pain, Moderate (Pain Scale 4-6 Lorazepam 0.5 mg 02/04/20 18:33 02/09/20 18:47 Lorazepam 0.5 Mg Tablet PO 0.5 mg Q4H PRN Administration Anxiety Magnesium Hydroxide 30 ml 02/03/20 20:01 Milk Of Magnesia 30 Ml Oral.Susp PO DAILY PRN Constipation Mirtazapine 22.5 mg 02/09/20 21:00 02/09/20 20:24 Mirtazapine 15 Mg Tablet PO 22.5 mg BEDTIME CANDY Administration Nicotine 7 mg 02/04/20 09:00 02/09/20 08:41 Nicotine 7 Mg Patch.Td24 TRANSDERMA 7 mg DAILY CANDY Administration Nicotine Polacrilex 2 mg 02/03/20 20:55 Nicotine Polacrilex 2 Mg Lozenge BUCCAL Q2H PRN Nicotine Cravings Allergies Allergies Allergy/AdvReac Type Severity Reaction Status Date / Time bee pollen [BEE STINGS] Allergy Unknown ARM Verified 02/03/20 00:43 SWELLING codeine [CODEINE] Allergy Unknown HIVES, Verified 02/03/20 00:43 NAUSEA bee stings Allergy Unknown Swelling Uncoded 02/03/20 00:43 Assessment & Plan Assessment & Plan (1) Major depressive disorder, recurrent, severe with psychotic features: Status: Acute Code(s): F33.3 - Major depressive disorder, recurrent, severe with psychotic symptoms Assessment and Plan: patient feeling better with mirtazapine and Abilify Greater than 50% of the session was spent on counseling and/or coordination of care
[2020-02-10 06:35] VITALS: BP 105/64; PULSE 78; RESP 16; TEMP 36.6; O2SAT 99
[2020-02-10] MEDS: Nicotine 7 MG PATCH.TD24 TRANSDERMA (08:27)
[2020-02-10] MEDS: LORazepam 0.5 MG TABLET PO ×3 (08:34→18:20)
[2020-02-10] MEDS: Ibuprofen 400 MG TABLET PO ×2 (08:34→18:20)
[2020-02-10 18:00] VITALS: BP 94/54; PULSE 84; TEMP 36.8
[2020-02-10] MEDS: ARIPiprazole 2 MG TABLET PO (19:52)
[2020-02-10] MEDS: Mirtazapine 15 MG TABLET 22.5 MG PO (19:53)
--- NOTE | 2020-02-10 23:10 | HO.PSYCHPN ---
Subjective Subjective Date of Service: 02/10/20 Reason For Visit: MDD Severe Recurrent Interim History: patient encouraged to ambulate up and down the [place] to maintain muscle strength feeling better on Abilify and mirtazapine Medication Compliance: Yes Review of Systems Reports memory loss Psychiatric: Reports memory loss Mental Status Exam Mental Status Exam Patient Appearance: Well Grooomed Patient Orientation: Person, Place, Time and Situation Level of Consciousness: Awake and Appropriate Patient Behavior: Appropriate and Talkative Mood Description: Depressed Affect Description: Flat Patient Cognition Impaired: No Ability to Follow Directions: Good Speech Pattern: Appropriate and Spontaneous Speech Memory Description: Intact Hallucinations: None Delusions: Not Present Thought Process: Rumination Thought Content: positive for Perseveration Depressive Symptoms: Increased Anxiety, Insomnia, Difficulty Sleeping, Changes in Appetite, Loss of Int. in Activity, Feelings of Worthlessness, Hopelessness, Unhappiness, Increased Fatigue, Low Self Esteem, Loss of Energy and Difficulty Concentrating Judgement: Fair Diagnostics Vital Signs (24Hr): Vital Signs - 24 hr 02/10/20 06:35 02/10/20 18:00 Temperature 97.8 F 98.2 F Pulse Rate 78 84 Respiratory Rate 16 Blood Pressure 105/64 94/54 L Pulse Oximetry 99 Body Mass Index 0.0 Labs Results: 02/03/20 01:01 02/03/20 01:01 Medications Medications Current Medications Generic Name Dose Route Start Last Admin Trade Name Freq PRN Reason Stop Dose Admin Acetaminophen 650 mg 02/03/20 20:01 02/09/20 13:38 Acetaminophen 325 Mg Tablet PO 650 mg Q6H PRN Administration Headache/Pain Mild Scale (1-3) Al Hydroxide/Mg Hydroxide 30 ml 02/03/20 20:01 Magnesium Hydrox/Alum Hydrox 30 Ml Oral.Susp PO Q6H PRN Heartburn/Nausea Aripiprazole 2 mg 02/07/20 21:00 02/10/20 19:52 Aripiprazole 2 Mg Tablet PO 2 mg BEDTIME CANDY Administration Hydroxyzine HCl 25 mg 02/03/20 20:01 02/05/20 20:57 Hydroxyzine Hcl 25 Mg Tablet PO 25 mg BEDTIME PRN Administration Anxiety Ibuprofen 400 mg 02/05/20 23:12 02/10/20 18:20 Ibuprofen 400 Mg Tablet PO 400 mg Q6H PRN Administration Pain, Moderate (Pain Scale 4-6 Lorazepam 0.5 mg 02/04/20 18:33 02/10/20 18:20 Lorazepam 0.5 Mg Tablet PO 0.5 mg Q4H PRN Administration Anxiety Magnesium Hydroxide 30 ml 02/03/20 20:01 Milk Of Magnesia 30 Ml Oral.Susp PO DAILY PRN Constipation Mirtazapine 22.5 mg 02/09/20 21:00 02/10/20 19:53 Mirtazapine 15 Mg Tablet PO 22.5 mg BEDTIME CANDY Administration Nicotine 7 mg 02/04/20 09:00 02/10/20 08:27 Nicotine 7 Mg Patch.Td24 TRANSDERMA 7 mg DAILY CANDY Administration Nicotine Polacrilex 2 mg 02/03/20 20:55 Nicotine Polacrilex 2 Mg Lozenge BUCCAL Q2H PRN Nicotine Cravings Allergies Allergies Allergy/AdvReac Type Severity Reaction Status Date / Time bee pollen [BEE STINGS] Allergy Unknown ARM Verified 02/03/20 00:43 SWELLING codeine [CODEINE] Allergy Unknown HIVES, Verified 02/03/20 00:43 NAUSEA bee stings Allergy Unknown Swelling Uncoded 02/03/20 00:43 Assessment & Plan Assessment & Plan (1) Major depressive disorder, recurrent, severe with psychotic features: Status: Acute Code(s): F33.3 - Major depressive disorder, recurrent, severe with psychotic symptoms Assessment and Plan: patient with improving mood future oriented continue plan of care Greater than 50% of the session was spent on counseling and/or coordination of care
[2020-02-11 06:15] VITALS: BP 113/64; PULSE 72; RESP 16; TEMP 36.6; O2SAT 99
[2020-02-11] MEDS: LORazepam 0.5 MG TABLET PO ×3 (08:43→16:59)
[2020-02-11] MEDS: Ibuprofen 400 MG TABLET PO ×2 (08:43→16:59)
[2020-02-11] MEDS: Nicotine 7 MG PATCH.TD24 TRANSDERMA (09:47)
--- NOTE | 2020-02-11 17:52 | HO.PSYCHPN ---
Subjective Subjective Date of Service: 02/11/20 Reason For Visit: MDD Severe Recurrent Interim History: Reports feeling some improvement. Anxiety is a persistant symptom he discussed today. Discussed discharge and pt reports he believes he is nearing the time where he feels ready. Medication Compliance: Yes Side effects from medications: No Attending Groups: No (per pt report.) Review of Systems Review of Systems Yes all other systems are reviewed and are negative Reports memory loss Psychiatric: Reports abnormal sleep pattern (reports 4-6 hours of sleep per night.), Reports anxiety and Reports memory loss Mental Status Exam Mental Status Exam Patient Appearance: Appropriate Patient Orientation: Person, Place, Time and Situation Level of Consciousness: Awake, Appropriate and Alert Patient Behavior: Appropriate and Anxious Mood Description: Anxious Affect Description: Flat Patient Cognition Impaired: No Ability to Follow Directions: Good Speech Pattern: Clear, Appropriate and Spontaneous Speech Memory Description: Immediate Intact and Short Term Intact Hallucinations: None Delusions: Not Present Thought Process: Intact Thought Content: positive for Intact Depressive Symptoms: Increased Anxiety Judgement: Fair Diagnostics Vital Signs (24Hr): Vital Signs - 24 hr 02/10/20 18:00 02/11/20 06:15 Temperature 98.2 F 97.9 F Pulse Rate 84 72 Respiratory Rate 16 Blood Pressure 94/54 L 113/64 Pulse Oximetry 99 Body Mass Index 0.0 Labs Results: 02/03/20 01:01 02/03/20 01:01 Medications Medications Current Medications Generic Name Dose Route Start Last Admin Trade Name Freq PRN Reason Stop Dose Admin Acetaminophen 650 mg 02/03/20 20:01 02/09/20 13:38 Acetaminophen 325 Mg Tablet PO 650 mg Q6H PRN Administration Headache/Pain Mild Scale (1-3) Al Hydroxide/Mg Hydroxide 30 ml 02/03/20 20:01 Magnesium Hydrox/Alum Hydrox 30 Ml Oral.Susp PO Q6H PRN Heartburn/Nausea Aripiprazole 5 mg 02/11/20 21:00 Aripiprazole 5 Mg Tablet PO BEDTIME CANDY Gabapentin 100 mg 02/11/20 21:00 Gabapentin 100 Mg Capsule PO BID CANDY Hydroxyzine HCl 25 mg 02/03/20 20:01 02/05/20 20:57 Hydroxyzine Hcl 25 Mg Tablet PO 25 mg BEDTIME PRN Administration Anxiety Ibuprofen 400 mg 02/05/20 23:12 02/11/20 16:59 Ibuprofen 400 Mg Tablet PO 400 mg Q6H PRN Administration Pain, Moderate (Pain Scale 4-6 Lorazepam 0.5 mg 02/04/20 18:33 02/11/20 16:59 Lorazepam 0.5 Mg Tablet PO 0.5 mg Q4H PRN Administration Anxiety Magnesium Hydroxide 30 ml 02/03/20 20:01 Milk Of Magnesia 30 Ml Oral.Susp PO DAILY PRN Constipation Mirtazapine 22.5 mg 02/09/20 21:00 02/10/20 19:53 Mirtazapine 15 Mg Tablet PO 22.5 mg BEDTIME CANDY Administration Nicotine 7 mg 02/04/20 09:00 02/11/20 09:47 Nicotine 7 Mg Patch.Td24 TRANSDERMA 7 mg DAILY CANDY Administration Nicotine Polacrilex 2 mg 02/03/20 20:55 Nicotine Polacrilex 2 Mg Lozenge BUCCAL Q2H PRN Nicotine Cravings Allergies Allergies Allergy/AdvReac Type Severity Reaction Status Date / Time bee pollen [BEE STINGS] Allergy Unknown ARM Verified 02/03/20 00:43 SWELLING codeine [CODEINE] Allergy Unknown HIVES, Verified 02/03/20 00:43 NAUSEA bee stings Allergy Unknown Swelling Uncoded 02/03/20 00:43 Assessment & Plan Assessment & Plan (1) Major depressive disorder, recurrent, severe with psychotic features: Status: Acute Code(s): F33.3 - Major depressive disorder, recurrent, severe with psychotic symptoms Assessment and Plan: -Increase Abilify to 5 mg hs -Gabapentin 100 mg bid Greater than 50% of the session was spent on counseling and/or coordination of care Patient educated on: medication risk/benefits and therapeutic strategies Informed Consent: understands and further education needed Reason for contiued inpatient stay Substantial Risk for: harm to self, inability to function and rapid decompensation
[2020-02-11 18:00] VITALS: BP 98/64; PULSE 83; TEMP 36.4
[2020-02-11] MEDS: Gabapentin 100 MG CAPSULE PO (20:03)
[2020-02-11] MEDS: ARIPiprazole 5 MG TABLET PO (20:03)
[2020-02-11] MEDS: Mirtazapine 15 MG TABLET 22.5 MG PO (20:03)
[2020-02-12 06:20] VITALS: BP 123/71; PULSE 79; RESP 16; TEMP 37.1; O2SAT 99
[2020-02-12] MEDS: LORazepam 0.5 MG TABLET PO ×3 (06:29→16:08)
[2020-02-12] MEDS: Ibuprofen 400 MG TABLET PO ×2 (06:29→16:08)
[2020-02-12 08:50] LABS: Estimated Average Glucose 100 mg/dL; Hemoglobin A1c % 5.1 %
[2020-02-12 08:51] LABS: Cholesterol 154 mg/dL; Glucose Fasting 79 mg/dL (60-99); HDL Cholesterol 46 mg/dL; LDL Cholesterol Calculated 92 mg/dl; Triglycerides 81 mg/dL
[2020-02-12] MEDS: Gabapentin 100 MG CAPSULE PO ×2 (08:56→21:13)
[2020-02-12] MEDS: Nicotine 7 MG PATCH.TD24 TRANSDERMA (08:56)
[2020-02-12] MEDS: Acetaminophen 325 MG TABLET 650 MG PO (11:12)
--- NOTE | 2020-02-12 17:59 | P.PNPSI_ITS ---
Subjective Subjective Date of Service: 02/12/20 Reason For Visit: MDD Severe Recurrent Subjective Notes: Conditional Voluntary Interim History: Pt reports some improvement in anxiety sx, however, asking not to be discharged as holidays are difficult for him-feels he needs the milieu structure. Medication Compliance: Yes Side effects from medications: No Attending Groups: Intermittent (per pt report) Review of Systems Review of Systems Pt denies medical sx of concern today. Yes all other systems are reviewed and are negative Reports memory loss Psychiatric: Reports anxiety, Reports depression, Reports hopelessness and Reports memory loss Mental Status Exam Mental Status Exam Patient Appearance: Appropriate Patient Orientation: Person, Place and Time Level of Consciousness: Awake and Alert Patient Behavior: Appropriate, Talkative, Cooperative and Anxious Mood Description: Depressed and Anxious Affect Description: Flat Patient Cognition Impaired: No Ability to Follow Directions: Good Speech Pattern: Clear, Appropriate and Spontaneous Speech Memory Description: Remote Impaired Hallucinations: None (denies) Thought Process: Rumination Thought Content: positive for [facility] Depressive Symptoms: Increased Anxiety Judgement: Fair Diagnostics Vital Signs (24Hr): Vital Signs - 24 hr 02/11/20 18:00 02/12/20 06:20 Temperature 97.6 F 98.7 F Pulse Rate 83 79 Respiratory Rate 16 Blood Pressure 98/64 123/71 Pulse Oximetry 99 Body Mass Index 0.0 Labs Results: 02/03/20 01:01 02/03/20 01:01 Labs: Laboratory Results - last 48 hr 02/12/20 02/12/20 07:48 07:48 Fasting Glucose 79 Estimat Average Glucose 100 Hemoglobin A1c % 5.1 Triglycerides 81 Cholesterol 154 LDL Cholesterol, Calc 92 HDL Cholesterol 46 Medications Medications Current Medications Generic Name Dose Route Start Last Admin Trade Name Freq PRN Reason Stop Dose Admin Acetaminophen 650 mg 02/03/20 20:01 02/12/20 11:12 Acetaminophen 325 Mg Tablet PO 650 mg Q6H PRN Administration Headache/Pain Mild Scale (1-3) Al Hydroxide/Mg Hydroxide 30 ml 02/03/20 20:01 Magnesium Hydrox/Alum Hydrox 30 Ml Oral.Susp PO Q6H PRN Heartburn/Nausea Aripiprazole 5 mg 02/11/20 21:00 02/11/20 20:03 Aripiprazole 5 Mg Tablet PO 5 mg BEDTIME CANDY Administration Gabapentin 100 mg 02/11/20 21:00 02/12/20 08:56 Gabapentin 100 Mg Capsule PO 100 mg BID CANDY Administration Hydroxyzine HCl 25 mg 02/03/20 20:01 02/05/20 20:57 Hydroxyzine Hcl 25 Mg Tablet PO 25 mg BEDTIME PRN Administration Anxiety Ibuprofen 400 mg 02/05/20 23:12 02/12/20 16:08 Ibuprofen 400 Mg Tablet PO 400 mg Q6H PRN Administration Pain, Moderate (Pain Scale 4-6 Lorazepam 0.5 mg 02/04/20 18:33 02/12/20 16:08 Lorazepam 0.5 Mg Tablet PO 0.5 mg Q4H PRN Administration Anxiety Magnesium Hydroxide 30 ml 02/03/20 20:01 Milk Of Magnesia 30 Ml Oral.Susp PO DAILY PRN Constipation Mirtazapine 22.5 mg 02/09/20 21:00 02/11/20 20:03 Mirtazapine 15 Mg Tablet PO 22.5 mg BEDTIME CANDY Administration Nicotine 7 mg 02/04/20 09:00 02/12/20 08:56 Nicotine 7 Mg Patch.Td24 TRANSDERMA 7 mg DAILY CANDY Administration Nicotine Polacrilex 2 mg 02/03/20 20:55 Nicotine Polacrilex 2 Mg Lozenge BUCCAL Q2H PRN Nicotine Cravings Allergies Allergies Allergy/AdvReac Type Severity Reaction Status Date / Time bee pollen [BEE STINGS] Allergy Unknown ARM Verified 02/03/20 00:43 SWELLING codeine [CODEINE] Allergy Unknown HIVES, Verified 02/03/20 00:43 NAUSEA bee stings Allergy Unknown Swelling Uncoded 02/03/20 00:43 Assessment & Plan Assessment & Plan (1) Major depressive disorder, recurrent, severe with psychotic features: Status: Acute Code(s): F33.3 - Major depressive disorder, recurrent, severe with psychotic symptoms Assessment and Plan: -Pt is continuing to feel anxious. Increase Gabapentin to 100 mg tid Greater than 50% of the session was spent on counseling and/or coordination of care Patient educated on: medication risk/benefits and therapeutic strategies Informed Consent: understands and further education needed
[2020-02-12 18:00] VITALS: BP 95/66; PULSE 87; TEMP 36.9
[2020-02-12] MEDS: ARIPiprazole 5 MG TABLET PO (21:14)
[2020-02-12] MEDS: Mirtazapine 15 MG TABLET 22.5 MG PO (21:14)
[2020-02-13] MEDS: LORazepam 0.5 MG TABLET PO ×3 (04:36→16:37)
[2020-02-13 06:15] VITALS: BP 128/76; PULSE 64; RESP 16; TEMP 37; O2SAT 100
[2020-02-13] MEDS: Gabapentin 100 MG CAPSULE PO ×3 (08:59→20:45)
[2020-02-13] MEDS: Ibuprofen 400 MG TABLET PO ×2 (08:59→16:37)
[2020-02-13] MEDS: Nicotine 7 MG PATCH.TD24 TRANSDERMA (09:18)
[2020-02-13] MEDS: Magnesium Hydrox/Alum Hydrox 30 ML ORAL.SUSP PO (11:19)
[2020-02-13 18:00] VITALS: BP 91/50; PULSE 81; TEMP 36.8
--- NOTE | 2020-02-13 18:07 | HO.PSYCHPN ---
Subjective Subjective Date of Service: 02/13/20 Reason For Visit: MDD Severe Recurrent Subjective Notes: Conditional Voluntary Interim History: The anxiety is still bad. I don't feel ready to leave. I will drink because it is New Year's-my girlfriend drinks (found by team to be intoxicated when they spoke with her this week) but she is not hurting me. I need a break from being there-it is too much at times. I need to save money to pay rent, not drink. I hope you will help me. Medication Compliance: Yes Side effects from medications: No Attending Groups: No Review of Systems Reports memory loss Psychiatric: Reports abnormal sleep pattern, Reports anxiety, Reports depression and Reports memory loss Mental Status Exam Mental Status Exam Patient Appearance: Appropriate Patient Orientation: Person, Place, Time and Situation Level of Consciousness: Awake and Alert Patient Behavior: Talkative and Anxious Mood Description: Depressed and Anxious Affect Description: Flat Patient Cognition Impaired: No Ability to Follow Directions: Good Speech Pattern: Clear and Appropriate Memory Description: Intact Hallucinations: None Delusions: Not Present Thought Process: Intact Thought Content: positive for Intact Depressive Symptoms: Increased Anxiety, Insomnia, Diff. Making Decisions, Difficulty Sleeping, Loss of Int. in Activity, Hopelessness, Unhappiness and Increased Fatigue Judgement: Fair Diagnostics Vital Signs (24Hr): Vital Signs - 24 hr 02/13/20 06:15 Temperature 98.6 F Pulse Rate 64 Respiratory Rate 16 Blood Pressure 128/76 Pulse Oximetry 100 Body Mass Index 0.0 Labs Results: 02/03/20 01:01 02/03/20 01:01 Labs: Laboratory Results - last 48 hr 02/12/20 02/12/20 07:48 07:48 Fasting Glucose 79 Estimat Average Glucose 100 Hemoglobin A1c % 5.1 Triglycerides 81 Cholesterol 154 LDL Cholesterol, Calc 92 HDL Cholesterol 46 Medications Medications Current Medications Generic Name Dose Route Start Last Admin Trade Name Freq PRN Reason Stop Dose Admin Acetaminophen 650 mg 02/03/20 20:01 02/12/20 11:12 Acetaminophen 325 Mg Tablet PO 650 mg Q6H PRN Administration Headache/Pain Mild Scale (1-3) Al Hydroxide/Mg Hydroxide 30 ml 02/03/20 20:01 02/13/20 11:19 Magnesium Hydrox/Alum Hydrox 30 Ml Oral.Susp PO 30 ml Q6H PRN Administration Heartburn/Nausea Aripiprazole 5 mg 02/11/20 21:00 02/12/20 21:14 Aripiprazole 5 Mg Tablet PO 5 mg BEDTIME CANDY Administration Gabapentin 100 mg 02/12/20 21:00 02/13/20 14:19 Gabapentin 100 Mg Capsule PO 100 mg TID CANDY Administration Hydroxyzine HCl 25 mg 02/03/20 20:01 02/05/20 20:57 Hydroxyzine Hcl 25 Mg Tablet PO 25 mg BEDTIME PRN Administration Anxiety Ibuprofen 400 mg 02/05/20 23:12 02/13/20 16:37 Ibuprofen 400 Mg Tablet PO 400 mg Q6H PRN Administration Pain, Moderate (Pain Scale 4-6 Lorazepam 0.5 mg 02/04/20 18:33 02/13/20 16:37 Lorazepam 0.5 Mg Tablet PO 0.5 mg Q4H PRN Administration Anxiety Magnesium Hydroxide 30 ml 02/03/20 20:01 Milk Of Magnesia 30 Ml Oral.Susp PO DAILY PRN Constipation Mirtazapine 22.5 mg 02/09/20 21:00 02/12/20 21:14 Mirtazapine 15 Mg Tablet PO 22.5 mg BEDTIME CANDY Administration Nicotine 7 mg 02/04/20 09:00 02/13/20 09:18 Nicotine 7 Mg Patch.Td24 TRANSDERMA 7 mg DAILY CANDY Administration Nicotine Polacrilex 2 mg 02/03/20 20:55 Nicotine Polacrilex 2 Mg Lozenge BUCCAL Q2H PRN Nicotine Cravings Allergies Allergies Allergy/AdvReac Type Severity Reaction Status Date / Time bee pollen [BEE STINGS] Allergy Unknown ARM Verified 02/03/20 00:43 SWELLING codeine [CODEINE] Allergy Unknown HIVES, Verified 02/03/20 00:43 NAUSEA bee stings Allergy Unknown Swelling Uncoded 02/03/20 00:43 Assessment & Plan Assessment & Plan (1) Major depressive disorder, recurrent, severe with psychotic features: Status: Acute Code(s): F33.3 - Major depressive disorder, recurrent, severe with psychotic symptoms Assessment and Plan: -Increase Mirtazapine to 30 mg HS Greater than 50% of the session was spent on counseling and/or coordination of care Patient educated on: medication risk/benefits and therapeutic strategies Informed Consent: understands and further education needed Reason for contiued inpatient stay Substantial Risk for: harm to self, inability to function and rapid decompensation
[2020-02-13] MEDS: ARIPiprazole 5 MG TABLET PO (20:46)
[2020-02-13] MEDS: Mirtazapine 30 MG TABLET PO (20:46)
[2020-02-14] MEDS: Acetaminophen 325 MG TABLET 650 MG PO (04:25)
[2020-02-14] MEDS: LORazepam 0.5 MG TABLET PO ×2 (04:26→10:55)
[2020-02-14 06:00] VITALS: BP 119/64; PULSE 75; TEMP 36.8; O2SAT 100
[2020-02-14] MEDS: Gabapentin 100 MG CAPSULE PO ×3 (09:12→20:22)
[2020-02-14] MEDS: Nicotine 7 MG PATCH.TD24 TRANSDERMA (09:12)
--- NOTE | 2020-02-14 15:22 | P.PNPSI_ITS ---
Subjective Subjective Date of Service: 02/14/20 Reason For Visit: MDD Severe Recurrent Subjective Notes: Conditional Voluntary Interim History: Reports some improvement in sleep with Mirtazapine increase- awake twice during the night he reports. Hip pain 6- (PT identifies as iliac crest/flank). Denies feeling overmedicated, states anxiety is in improved control. Discussed keeping regime consistent for a period of time to assess efficacy and not risk overmedicating which he agrees. Review of Systems Musculoskeletal: Reports other (Hip Pain 6-810-Per PT iliac crest/flank, not hip area.) Reports memory loss Psychiatric: Reports abnormal sleep pattern (up x 2 during the night), Reports anxiety, Reports depression, Reports memory loss and Reports suicidal ideation (denies SI) Mental Status Exam Mental Status Exam Patient Appearance: Appropriate Patient Orientation: Person, Place, Time and Situation Level of Consciousness: Awake, Appropriate and Alert Patient Behavior: Appropriate, Talkative, Cooperative and Anxious Mood Description: Flat and Apprehensive Affect Description: Flat Patient Cognition Impaired: No Ability to Follow Directions: Good Speech Pattern: Appropriate, Spontaneous Speech and Coherent Memory Description: Intact Hallucinations: None Delusions: Not Present Thought Process: Distracted Thought Content: positive for Intact Depressive Symptoms: Difficulty Sleeping (awake x 2) Judgement: Fair Diagnostics Vital Signs (24Hr): Vital Signs - 24 hr 02/13/20 18:00 02/14/20 06:00 Temperature 98.2 F 98.2 F Pulse Rate 81 75 Blood Pressure 91/50 L 119/64 Pulse Oximetry 100 Body Mass Index 0.0 Labs Results: 02/03/20 01:01 02/03/20 01:01 Medications Medications Current Medications Generic Name Dose Route Start Last Admin Trade Name Freq PRN Reason Stop Dose Admin Acetaminophen 650 mg 02/03/20 20:01 02/14/20 04:25 Acetaminophen 325 Mg Tablet PO 650 mg Q6H PRN Administration Headache/Pain Mild Scale (1-3) Al Hydroxide/Mg Hydroxide 30 ml 02/03/20 20:01 02/13/20 11:19 Magnesium Hydrox/Alum Hydrox 30 Ml Oral.Susp PO 30 ml Q6H PRN Administration Heartburn/Nausea Aripiprazole 5 mg 02/11/20 21:00 02/13/20 20:46 Aripiprazole 5 Mg Tablet PO 5 mg BEDTIME CANDY Administration Gabapentin 100 mg 02/12/20 21:00 02/14/20 14:33 Gabapentin 100 Mg Capsule PO 100 mg TID CANDY Administration Hydroxyzine HCl 25 mg 02/03/20 20:01 02/05/20 20:57 Hydroxyzine Hcl 25 Mg Tablet PO 25 mg BEDTIME PRN Administration Anxiety Ibuprofen 400 mg 02/05/20 23:12 02/13/20 16:37 Ibuprofen 400 Mg Tablet PO 400 mg Q6H PRN Administration Pain, Moderate (Pain Scale 4-6 Lorazepam 0.5 mg 02/14/20 15:20 Lorazepam 0.5 Mg Tablet PO Q8H PRN Anxiety Magnesium Hydroxide 30 ml 02/03/20 20:01 Milk Of Magnesia 30 Ml Oral.Susp PO DAILY PRN Constipation Mirtazapine 30 mg 02/13/20 21:00 02/13/20 20:46 Mirtazapine 30 Mg Tablet PO 30 mg BEDTIME CANDY Administration Nicotine 7 mg 02/04/20 09:00 02/14/20 09:12 Nicotine 7 Mg Patch.Td24 TRANSDERMA 7 mg DAILY CANDY Administration Nicotine Polacrilex 2 mg 02/03/20 20:55 Nicotine Polacrilex 2 Mg Lozenge BUCCAL Q2H PRN Nicotine Cravings Allergies Allergies Allergy/AdvReac Type Severity Reaction Status Date / Time bee pollen [BEE STINGS] Allergy Unknown ARM Verified 02/03/20 00:43 SWELLING codeine [CODEINE] Allergy Unknown HIVES, Verified 02/03/20 00:43 NAUSEA bee stings Allergy Unknown Swelling Uncoded 02/03/20 00:43 Assessment & Plan Assessment & Plan (1) Major depressive disorder, recurrent, severe with psychotic features: Status: Acute Code(s): F33.3 - Major depressive disorder, recurrent, severe with psychotic symptoms Assessment and Plan: -Continue current regime Greater than 50% of the session was spent on counseling and/or coordination of care
[2020-02-14 18:00] VITALS: BP 106/55; PULSE 94; TEMP 36.8
[2020-02-14] MEDS: ARIPiprazole 5 MG TABLET PO (20:22)
[2020-02-14] MEDS: Mirtazapine 30 MG TABLET PO (20:23)
[2020-02-15] MEDS: Ibuprofen 400 MG TABLET PO (04:18)
[2020-02-15] MEDS: LORazepam 0.5 MG TABLET PO ×2 (04:18→16:39)
[2020-02-15 06:15] VITALS: BP 128/69; PULSE 79; RESP 16; TEMP 36.3; O2SAT 100
[2020-02-15] MEDS: Nicotine 7 MG PATCH.TD24 TRANSDERMA (09:30)
[2020-02-15] MEDS: Gabapentin 100 MG CAPSULE PO ×3 (09:30→21:31)
--- NOTE | 2020-02-15 13:26 | HO.PSYCHPN ---
Subjective Subjective Date of Service: 02/15/20 Reason For Visit: MDD Severe Recurrent Subjective Notes: Conditional Voluntary Interim History: Pt reports feeling improved- slept last night - Medication Compliance: Yes Side effects from medications: No Attending Groups: Intermittent Review of Systems Comments: hip pain Reports memory loss Psychiatric: Reports memory loss Mental Status Exam Mental Status Exam Patient Appearance: Disheveled Patient Orientation: Person, Place, Time and Situation Level of Consciousness: Awake Patient Behavior: Appropriate Mood Description: Anxious Affect Description: Calm Patient Cognition Impaired: No Ability to Follow Directions: Good Speech Pattern: Clear Hallucinations: None Thought Process: Intact Thought Content: positive for Intact Judgement: Fair Diagnostics Vital Signs (24Hr): Vital Signs - 24 hr 02/14/20 18:00 02/15/20 06:15 Temperature 98.2 F 97.4 F Pulse Rate 94 79 Respiratory Rate 16 Blood Pressure 106/55 L 128/69 Pulse Oximetry 100 Body Mass Index 0.0 Labs Results: 02/03/20 01:01 02/03/20 01:01 Medications Medications Current Medications Generic Name Dose Route Start Last Admin Trade Name Freq PRN Reason Stop Dose Admin Acetaminophen 650 mg 02/03/20 20:01 02/14/20 04:25 Acetaminophen 325 Mg Tablet PO 650 mg Q6H PRN Administration Headache/Pain Mild Scale (1-3) Al Hydroxide/Mg Hydroxide 30 ml 02/03/20 20:01 02/13/20 11:19 Magnesium Hydrox/Alum Hydrox 30 Ml Oral.Susp PO 30 ml Q6H PRN Administration Heartburn/Nausea Aripiprazole 5 mg 02/11/20 21:00 02/14/20 20:22 Aripiprazole 5 Mg Tablet PO 5 mg BEDTIME CANDY Administration Gabapentin 100 mg 02/12/20 21:00 02/15/20 09:30 Gabapentin 100 Mg Capsule PO 100 mg TID CANDY Administration Hydroxyzine HCl 25 mg 02/03/20 20:01 02/05/20 20:57 Hydroxyzine Hcl 25 Mg Tablet PO 25 mg BEDTIME PRN Administration Anxiety Ibuprofen 400 mg 02/05/20 23:12 02/15/20 04:18 Ibuprofen 400 Mg Tablet PO 400 mg Q6H PRN Administration Pain, Moderate (Pain Scale 4-6 Lorazepam 0.5 mg 02/14/20 15:20 02/15/20 04:18 Lorazepam 0.5 Mg Tablet PO 0.5 mg Q8H PRN Administration Anxiety Magnesium Hydroxide 30 ml 02/03/20 20:01 Milk Of Magnesia 30 Ml Oral.Susp PO DAILY PRN Constipation Mirtazapine 30 mg 02/13/20 21:00 02/14/20 20:23 Mirtazapine 30 Mg Tablet PO 30 mg BEDTIME CANDY Administration Nicotine 7 mg 02/04/20 09:00 02/15/20 09:30 Nicotine 7 Mg Patch.Td24 TRANSDERMA 7 mg DAILY CANDY Administration Nicotine Polacrilex 2 mg 02/03/20 20:55 Nicotine Polacrilex 2 Mg Lozenge BUCCAL Q2H PRN Nicotine Cravings Allergies Allergies Allergy/AdvReac Type Severity Reaction Status Date / Time bee pollen [BEE STINGS] Allergy Unknown ARM Verified 02/03/20 00:43 SWELLING codeine [CODEINE] Allergy Unknown HIVES, Verified 02/03/20 00:43 NAUSEA bee stings Allergy Unknown Swelling Uncoded 02/03/20 00:43 Assessment & Plan Assessment & Plan (1) Depression: Status: Acute Code(s): F32.9 - Major depressive disorder, single episode, unspecified Assessment and Plan: feeling improved planning for dc Greater than 50% of the session was spent on counseling and/or coordination of care
[2020-02-15 16:25] VITALS: BP 114/60; PULSE 82; TEMP 37.1
[2020-02-15] MEDS: Acetaminophen 325 MG TABLET 650 MG PO (16:39)
[2020-02-15] MEDS: ARIPiprazole 5 MG TABLET PO (21:30)
[2020-02-15] MEDS: Mirtazapine 30 MG TABLET PO (21:30)
[2020-02-16 05:05] VITALS: BP 110/74; PULSE 79; RESP 16; TEMP 36.4; O2SAT 99
[2020-02-16] MEDS: Ibuprofen 400 MG TABLET PO ×2 (05:05→16:23)
[2020-02-16] MEDS: LORazepam 0.5 MG TABLET PO ×2 (05:06→16:24)
[2020-02-16] MEDS: Gabapentin 100 MG CAPSULE PO ×3 (08:35→20:19)
[2020-02-16] MEDS: Nicotine 7 MG PATCH.TD24 TRANSDERMA (08:35)
--- NOTE | 2020-02-16 13:25 | HO.PSYCHPN ---
Subjective Subjective Date of Service: 02/16/20 Reason For Visit: MDD Severe Recurrent Subjective Notes: Conditional Voluntary Interim History: feeling improved and looking for discharge Medication Compliance: Yes Side effects from medications: No Attending Groups: No Review of Systems Acute medical concerns: No Review of Systems: hip pain Review of Systems Reports memory loss Psychiatric: Reports memory loss Mental Status Exam Mental Status Exam Patient Appearance: Disheveled Patient Orientation: Person, Place, Time and Situation Level of Consciousness: Awake Patient Behavior: Appropriate and Cooperative Mood Description: Calm and Anxious Affect Description: Calm Patient Cognition Impaired: No Ability to Follow Directions: Fair Speech Pattern: Clear Hallucinations: None Delusions: Not Present Thought Process: Intact and Goal Oriented Thought Content: positive for Intact Judgement: Fair Diagnostics Vital Signs (24Hr): Vital Signs - 24 hr 02/15/20 16:25 02/16/20 05:05 Temperature 98.7 F 97.5 F Pulse Rate 82 79 Respiratory Rate 16 Blood Pressure 114/60 110/74 Pulse Oximetry 99 Body Mass Index 0.0 Labs Results: 02/03/20 01:01 02/03/20 01:01 Medications Medications Current Medications Generic Name Dose Route Start Last Admin Trade Name Freq PRN Reason Stop Dose Admin Acetaminophen 650 mg 02/03/20 20:01 02/15/20 16:39 Acetaminophen 325 Mg Tablet PO 650 mg Q6H PRN Administration Headache/Pain Mild Scale (1-3) Al Hydroxide/Mg Hydroxide 30 ml 02/03/20 20:01 02/13/20 11:19 Magnesium Hydrox/Alum Hydrox 30 Ml Oral.Susp PO 30 ml Q6H PRN Administration Heartburn/Nausea Aripiprazole 5 mg 02/11/20 21:00 02/15/20 21:30 Aripiprazole 5 Mg Tablet PO 5 mg BEDTIME CANDY Administration Gabapentin 100 mg 02/12/20 21:00 02/16/20 08:35 Gabapentin 100 Mg Capsule PO 100 mg TID CANDY Administration Hydroxyzine HCl 25 mg 02/03/20 20:01 02/05/20 20:57 Hydroxyzine Hcl 25 Mg Tablet PO 25 mg BEDTIME PRN Administration Anxiety Ibuprofen 400 mg 02/05/20 23:12 02/16/20 05:05 Ibuprofen 400 Mg Tablet PO 400 mg Q6H PRN Administration Pain, Moderate (Pain Scale 4-6 Lorazepam 0.5 mg 02/14/20 15:20 02/16/20 05:06 Lorazepam 0.5 Mg Tablet PO 0.5 mg Q8H PRN Administration Anxiety Magnesium Hydroxide 30 ml 02/03/20 20:01 Milk Of Magnesia 30 Ml Oral.Susp PO DAILY PRN Constipation Mirtazapine 30 mg 02/13/20 21:00 02/15/20 21:30 Mirtazapine 30 Mg Tablet PO 30 mg BEDTIME CANDY Administration Nicotine 7 mg 02/04/20 09:00 02/16/20 08:35 Nicotine 7 Mg Patch.Td24 TRANSDERMA 7 mg DAILY CANDY Administration Nicotine Polacrilex 2 mg 02/03/20 20:55 Nicotine Polacrilex 2 Mg Lozenge BUCCAL Q2H PRN Nicotine Cravings Allergies Allergies Allergy/AdvReac Type Severity Reaction Status Date / Time bee pollen [BEE STINGS] Allergy Unknown ARM Verified 02/03/20 00:43 SWELLING codeine [CODEINE] Allergy Unknown HIVES, Verified 02/03/20 00:43 NAUSEA bee stings Allergy Unknown Swelling Uncoded 02/03/20 00:43 Assessment & Plan Assessment & Plan (1) Major depressive disorder, recurrent, severe with psychotic features: Status: Acute Code(s): F33.3 - Major depressive disorder, recurrent, severe with psychotic symptoms Assessment and Plan: denies current sys of depression, seems to spend alot of time in bed, disheveled hair- Greater than 50% of the session was spent on counseling and/or coordination of care
[2020-02-16 18:00] VITALS: BP 107/65; PULSE 79; TEMP 36.9
[2020-02-16] MEDS: ARIPiprazole 5 MG TABLET PO (20:19)
[2020-02-16] MEDS: Mirtazapine 30 MG TABLET PO (20:19)
[2020-02-17 06:10] VITALS: BP 115/72; PULSE 80; RESP 16; TEMP 36.2; O2SAT 98
[2020-02-17] MEDS: Nicotine 7 MG PATCH.TD24 TRANSDERMA (09:07)
[2020-02-17] MEDS: Gabapentin 100 MG CAPSULE PO ×3 (09:07→20:12)
[2020-02-17] MEDS: LORazepam 0.5 MG TABLET PO (12:43)
--- NOTE | 2020-02-17 13:04 | HO.PSYCHPN ---
Subjective Subjective Date of Service: 02/17/20 Reason For Visit: MDD Severe Recurrent Subjective Notes: Conditional Voluntary Interim History: did mmse on pt today after he asked nurse for clonazepam (which he hasn't been on since last year) showed positive for mild cognitive impairment - he has heard this before scored 22/30 mood he reports is ok appears mildly anxious and reports he was looking for prn of lorazepam (ativan) than clonazepam Medication Compliance: Yes Side effects from medications: No Attending Groups: No Review of Systems Reports memory loss Psychiatric: Reports memory loss Mental Status Exam Mental Status Exam Patient Appearance: Disheveled Patient Orientation: Person, Place, Time and Situation Level of Consciousness: Awake Patient Behavior: Appropriate Mood Description: Anxious Affect Description: Constricted Patient Cognition Impaired: Yes Ability to Follow Directions: Good Speech Pattern: Clear and Difficulty Finding Words Memory Description: Episodic Impaired (scored 22/30 on mmse) Hallucinations: None Thought Process: Intact Thought Content: positive for Slowed Thinking Judgement: Fair Diagnostics Vital Signs (24Hr): Vital Signs - 24 hr 02/16/20 18:00 02/17/20 06:10 Temperature 98.4 F 97.1 F Pulse Rate 79 80 Respiratory Rate 16 Blood Pressure 107/65 115/72 Pulse Oximetry 98 Body Mass Index 0.0 Labs Results: 02/03/20 01:01 02/03/20 01:01 Medications Medications Current Medications Generic Name Dose Route Start Last Admin Trade Name Freq PRN Reason Stop Dose Admin Acetaminophen 650 mg 02/03/20 20:01 02/15/20 16:39 Acetaminophen 325 Mg Tablet PO 650 mg Q6H PRN Administration Headache/Pain Mild Scale (1-3) Al Hydroxide/Mg Hydroxide 30 ml 02/03/20 20:01 02/13/20 11:19 Magnesium Hydrox/Alum Hydrox 30 Ml Oral.Susp PO 30 ml Q6H PRN Administration Heartburn/Nausea Aripiprazole 5 mg 02/11/20 21:00 02/16/20 20:19 Aripiprazole 5 Mg Tablet PO 5 mg BEDTIME CANDY Administration Gabapentin 100 mg 02/12/20 21:00 02/17/20 09:07 Gabapentin 100 Mg Capsule PO 100 mg TID CANDY Administration Hydroxyzine HCl 25 mg 02/03/20 20:01 02/05/20 20:57 Hydroxyzine Hcl 25 Mg Tablet PO 25 mg BEDTIME PRN Administration Anxiety Ibuprofen 400 mg 02/05/20 23:12 02/16/20 16:23 Ibuprofen 400 Mg Tablet PO 400 mg Q6H PRN Administration Pain, Moderate (Pain Scale 4-6 Lorazepam 0.5 mg 02/14/20 15:20 02/17/20 12:43 Lorazepam 0.5 Mg Tablet PO 0.5 mg Q8H PRN Administration Anxiety Magnesium Hydroxide 30 ml 02/03/20 20:01 Milk Of Magnesia 30 Ml Oral.Susp PO DAILY PRN Constipation Mirtazapine 30 mg 02/13/20 21:00 02/16/20 20:19 Mirtazapine 30 Mg Tablet PO 30 mg BEDTIME CANDY Administration Nicotine 7 mg 02/04/20 09:00 02/17/20 09:07 Nicotine 7 Mg Patch.Td24 TRANSDERMA 7 mg DAILY CANDY Administration Nicotine Polacrilex 2 mg 02/03/20 20:55 Nicotine Polacrilex 2 Mg Lozenge BUCCAL Q2H PRN Nicotine Cravings Allergies Allergies Allergy/AdvReac Type Severity Reaction Status Date / Time bee pollen [BEE STINGS] Allergy Unknown ARM Verified 02/03/20 00:43 SWELLING codeine [CODEINE] Allergy Unknown HIVES, Verified 02/03/20 00:43 NAUSEA bee stings Allergy Unknown Swelling Uncoded 02/03/20 00:43 Assessment & Plan Assessment & Plan (1) Depression: Status: Acute Code(s): F32.9 - Major depressive disorder, single episode, unspecified Assessment and Plan: improved, some mci - may need further work up as outpatient Greater than 50% of the session was spent on counseling and/or coordination of care
[2020-02-17 18:00] VITALS: BP 112/66; PULSE 83; TEMP 36.8
[2020-02-17] MEDS: ARIPiprazole 5 MG TABLET PO (20:12)
[2020-02-17] MEDS: Mirtazapine 30 MG TABLET PO (20:12)
[2020-02-18 06:25] VITALS: BP 122/69; PULSE 73; RESP 16; TEMP 36.7; O2SAT 98
[2020-02-18] MEDS: Gabapentin 100 MG CAPSULE PO (09:20)
[2020-02-18] MEDS: Nicotine 7 MG PATCH.TD24 TRANSDERMA (09:20)
[2020-02-18 12:51] LABS: Thyroid Stimulating Hormone 1.43 uIU/mL (0.32-4.0); Vitamin D 25-OH Total 17.5 ng/mL (>30)
[2020-02-18 13:04] LABS: Folate 5.1 ng/mL (> or = 4.0); Vitamin B12 312 pg/mL (200-900)
--- NOTE | 2020-02-18 13:24 | PC.NURSE ---
Pt is aware and ready for discharge. He has been educated on medications and future appointments. Pt appears calm and cooperative. He does display some anxiety but responds well to medications. Pt denies SI/HI. Pt denies auditory or visual hallucinations. Pt is alert and oriented to person, place, time, and situation. He is aware of his medications and dosages. Pt has been returned his belongings. Pt's paperwork has been faxed over to PCP and visiting nurse.
--- NOTE | 2020-02-18 17:03 | P.DS_ITS ---
DS: Providers Provider Date of admission: 02/03/20 20:01 Date of discharge: 02/18/20 Primary care physician: Luzmaria Physician Sepiedh Benedict Admitting clinician: Sarah Dias Attending physician on admission: Carlos Alberto Guo Attending physician on discharge: Carlos Alberto Guo Discharging clinician: Sarah Dias DS: Diagnosis Discharge Diagnosis (1) Depression: Status: Acute Problem details: Pt presented to the ER with reports of > 60 days of sx of depression, anxiety, racing thoughts with intrusive cognitive sx. Reported sleep and appetite disturbance and decline in ADL skills along with SI. DS: Medications Discharge Medications Home Medications: Previous Rx's Medication Instructions Recorded aripiprazole [Abilify] 5 mg PO BEDTIME #15 tab 02/18/20 gabapentin 100 mg PO TID #42 cap 02/18/20 lorazepam 0.5 mg PO DAILY PRN #7 tab 02/18/20 mirtazapine 30 mg PO BEDTIME #15 tab 02/18/20 Discharge Plan Discharge Anticipated Discharge Date/Time: 02/18/20 16:00 Patient Disposition: Home, Self-Care Referrals: [facility] Visiting RN [Other] (Fax- [phone] RN will start on 02/19/20- they will call to schedule a time. ) Irma Edge (Therapist) [facility] [Other] - 02/20/20 11:00 am Sultana Roberson (Psych Prescriber) [facility] [Other] - 03/12/20 2:00 pm Sultana Roberson (Psych Prescriber) [facility] [Other] - 04/09/20 2:00 pm Sepideh Benedict NP [Nurse Practitioner] - 02/20/20 1:10 pm (VIA PHONE) Discharge Medications: New mirtazapine 30 mg Tablet 30 mg PO BEDTIME Qty: 15 RF: 1 gabapentin 100 mg Capsule 100 mg PO TID Qty: 42 RF: 1 aripiprazole [Abilify] 5 mg Tablet 5 mg PO BEDTIME Qty: 15 RF: 1 lorazepam 0.5 mg tablet 0.5 mg PO DAILY PRN (Reason: anxiety) Qty: 7 RF: 2 Discharge Orders: Discharge Order (Routine); Ordered 02/18/20 Ordered By: Sarah Dias Diet: advance to usual diet Activity on Discharge: As tolerated Patient Instructions: Lorazepam (By mouth), Gabapentin (By mouth), Mirtazapine (By mouth), Aripiprazole (By mouth) Discharge Date/Time: 02/18/20 13:28 Print Language: Mexican Visit Report Forms: Patient Portal Discharge page Care Plan Goals: mood stability decrease in symptoms of anxiety and depression Health Concerns: chronic hip pain Plan of Treatment: Follow up with your primary care physician Follow up with psychotherapy and medication management Continue you medications Mental Status Exam Mental Status Exam Patient Appearance: Appropriate Patient Orientation: Person, Place, Time and Situation Level of Consciousness: Alert Patient Behavior: Appropriate Mood Description: Flat Affect Description: Flat Patient Cognition Impaired: No Ability to Follow Directions: Good Speech Pattern: Spontaneous Speech Memory Description: Intact Hallucinations: None Delusions: Not Present Thought Process: Intact Thought Content: positive for Intact Judgement: Good Data Data Completed and Pending Completed studies during hospitalization [Text1]: 02/12/20 02/12/20 02/18/20 07:48 07:48 11:51 Fasting Glucose 79 Estimat Average Glucose 100 Hemoglobin A1c % 5.1 Triglycerides 81 Cholesterol 154 LDL Cholesterol, Calc 92 HDL Cholesterol 46 Vitamin B12 312 25-OH Vitamin D Total Folate 5.1 TSH 02/18/20 11:51 Fasting Glucose Estimat Average Glucose Hemoglobin A1c % Triglycerides Cholesterol LDL Cholesterol, Calc HDL Cholesterol Vitamin B12 25-OH Vitamin D Total 17.5 Folate TSH 1.43 DS: Summary Hospital Course Hospital Course: Pt was admitted and titrated on Mirtazapine, Abilify, Gabapentin and Lorazpeam. Social work worked with pt's partner on gathering history of symptoms and potential interventions to assist pt when going home. He recompensated slowly, was found to be quiet in the milieu and accepted aftercare and VNA services Time spent discussing smoking cessation with patient: 3 to 10 minutes Status at Discharge Cognitive/behavioral status at discharge: alert, cooperative, non-psychotic, non-manic. affect flat mood blunted Functional status at discharge: independent ambulation Overall status at discharge: patient is progressing back to baseline Time Spent with Patient Time attestation: Total time spent providing and/or coordinating discharge services: 35 Time spent: Greater than 30 minutes
== END 2020-02-18 13:28 | disposition home or self-care (01) | DRG 885 ==
LOC: HO.ED 19:55 → HO.PM5 20:11
PROVIDERS: Clinical Nurse Specialist Psychiatric/Mental Health, Adult; Internal Medicine; Admitting Provider Clinical Nurse Specialist Psychiatric/Mental Health; Emergency Provider Emergency Medicine; Visit Provider Clinical Nurse Specialist Psychiatric/Mental Health
DX: F33.3 Major depressive disorder, recurrent, severe with psychotic symptoms (principal); R45.851 Suicidal ideations; F17.210 Nicotine dependence, cigarettes, uncomplicated; Z71.6 Tobacco abuse counseling; Z88.5 Allergy status to narcotic agent; Z23 Encounter for immunization; Z20.828 Contact with and (suspected) exposure to other viral communicable diseases
CPT/HCPCS: 36415; 80048; 80061; 80076; 80307; 81003; 82306; 82607; 82746; 82947; 83036; 84443; 85025; 85610; 87635; 90686; 93005; 97161; 97166; 99223; 99232; 99233; 99285

== ENCOUNTER 2020-09-03 15:27 | Inpatient (IN) | payer OTHER, SELFPAY ==
--- NOTE | ~2020-09-03 | XR_ITS ---
EXAMINATION: XR CHEST CLINICAL INFORMATION: FTT COMPARISON: None TECHNIQUE: Frontal view of the chest was obtained. FINDINGS: No significant abnormality is noted involving the heart, lungs, mediastinum, bony thorax or soft tissues. XR/XR chest 1V IMPRESSION: No radiographic evidence of acute cardiopulmonary disease.
[2020-09-03 15:37] VITALS: BP 93/56; PULSE 102; RESP 18; TEMP 36.6; O2SAT 97; BMI 22.8
--- NOTE | 2020-09-03 15:54 | ECG_ITS ---
Test Reason : MED CLEARENCE Blood Pressure : / mmHG Vent. Rate : 081 BPM Atrial Rate : 081 BPM P-R Int : 134 ms QRS Dur : 084 ms QT Int : 360 ms P-R-T Axes : 076 053 055 degrees QTc Int : 418 ms Normal sinus rhythm Normal ECG When compared with ECG of 03-FEB-2020 19:07, No significant change was found Referred By: Nora Rae Electronically Signed By:AMELIA KEANE MD
--- NOTE | 2020-09-03 16:12 | PHA.MEDREC ---
Pharmacy Consult ? Medication Reconciliation Pharmacy has completed the medication reconciliation.
[2020-09-03] MEDS: 0.9 % Sodium Chloride 1,000 ML 999 ML IVCONT ×2 (16:24→17:17)
--- NOTE | 2020-09-03 16:28 | ED.GENADULT ---
HPI - General Adult General Chief complaint: Failure to Thrive <NEVA Barrientos - Last Filed: 09/03/20 19:15> Stated complaint: FTV <NEVA Barrientos - Last Filed: 09/03/20 19:15> Time Seen by Provider: 09/03/20 15:47 <NEVA Barrientos Last Filed: 09/03/20 19:15> Source: patient <NEVA Barrientos Last Filed: 09/03/20 19:15> Mode of arrival: ambulatory <NEVA Barrientos Last Filed: 09/03/20 19:15> History of Present Illness HPI narrative: 69-year-old male with a past medical history of hepatitis-C, hypertension, depression, polysubstance abuse, seizures, BIBA for failure to thrive, generalized weakness, and requesting to speak to crisis. Patient and significant other report patient has had decreased p.o. intake/anorexia worsening over the past 3 weeks. Significant other reports patient has been only drinking milk, patient reports this is due to low appetite. Denies fever, chills, CP/SOB, abdominal pain, nausea/vomiting/diarrhea, cough <NEVA Barrientos Last Filed: 09/03/20 19:15> Related Data Home medications: Home Medications Medication Instructions Recorded Confirmed aripiprazole 1 tab PO BEDTIME 09/03/20 09/03/20 gabapentin 400 mg PO BID 09/03/20 09/03/20 Previous Rx's Medication Instructions Recorded mirtazapine 30 mg PO BEDTIME #15 tab 02/18/20 <NEVA Barrientos Last Filed: 09/03/20 19:15> Allergies/adverse reactions: Allergies Allergy/AdvReac Type Severity Reaction Status Date / Time bee pollen [BEE STINGS] Allergy Unknown ARM Verified 02/03/20 00:43 SWELLING codeine [CODEINE] Allergy Unknown HIVES, Verified 02/03/20 00:43 NAUSEA bee stings Allergy Unknown Swelling Uncoded 02/03/20 00:43 <NEVA Barrientos Last Filed: 09/03/20 19:15> Review of Systems Review of Systems: Constitutional: No Fever, No Chills ENT/Mouth: No Ear Pain, No Nasal Congestion, No sore throat Eyes: No Redness, No Foreign Body, No Vision Changes Cardiovascular: No Chest Pain, No SOB, No Edema Respiratory: No Cough, No Dyspnea Gastrointestinal: No Nausea, No Vomiting, No Diarrhea, No Constipation, No Abdominal pain Genitourinary: No Dysuria, No Hematuria, No Flank Pain Musculoskeletal: No joint pain, No Myalgias, No Joint Swelling Skin: No Skin Lesions, No rash Neuro: + Weakness, No Numbness, No Paresthesias, No Dizziness, No Headache Psych: No Anxiety, No Depression, No SI/HI/AH/VH, No Social Issues <NEVA Barrientos - Last Filed: 09/03/20 19:15> Yes all other systems are reviewed and are negative <NEVA Barrientos - Last Filed: 09/03/20 19:15> [facility] Past Medical History Attestation statement: The following information was validated with the patient. <NEVA Barrientos - Last Filed: 09/03/20 19:15> Medical History: Medical History (Updated 09/03/20 @ 22:58 by NEVA Moulton) Auditory hallucinations Hepatitis C Hypertension Major depressive disorder, recurrent, severe with psychotic features Polysubstance abuse Seizures <NEVA Barrientos - Last Filed: 09/03/20 19:15> Social History Social History: Social History Household Members: Significant Other Housing: Apartment Do you presently have visiting nurse or other home services: No Alcohol intake: unknown Cigarette Packs Per Day: 1 Cigarettes Per Day: 20.0 Years Smoked: life long smoker Second Hand Smoke Exposure: Yes Substance Use Type: Unknown Advance Directives: No Advance Directives Information Provided: No service: No Sexual orientation: Straight/Heterosexual <NEVA Barrientos - Last Filed: 09/03/20 19:15> Physical Exam Vital Signs: Vital Signs: Last Vital Signs Temp 97.8 F 09/03/20 18:36 Pulse 73 09/03/20 18:36 Resp 18 09/03/20 18:36 BP 109/85 09/03/20 18:36 Pulse Ox 100 09/03/20 18:36 Body Mass Index 22.8 <NEVA Barrientos Last Filed: 09/03/20 19:15> Vital Signs: Last Vital Signs Temp 97.8 F 09/03/20 18:36 Pulse 73 09/03/20 18:36 Resp 18 09/03/20 18:36 BP 109/85 09/03/20 18:36 Pulse Ox 100 09/03/20 18:36 Body Mass Index 22.8 <Irma Ding [facility] Last Filed: 09/03/20 22:58> Const: Other: Dry mucous membranes <Nora Rae NE - Last Filed: 09/03/20 19:15> General: cooperative, healthy appearing and no acute distress <Nora Rae NE - Last Filed: 09/03/20 19:15> Orientation/consciousness: patient oriented x3 <Nora Rae NE - Last Filed: 09/03/20 19:15> Limitations: no limitations <Nora Rae [facility] Last Filed: 09/03/20 19:15> HENMT: Head: Yes normal to inspection and Yes atraumatic <Nora Rae NE - Last Filed: 09/03/20 19:15> Ears: hearing grossly normal bilaterally <Nora Rae NE - Last Filed: 09/03/20 19:15> General nose exam: Normal external nose present <Nora Rae NE - Last Filed: 09/03/20 19:15> Face and sinus: Yes normal facial exam <Nora Rae [facility] Last Filed: 09/03/20 19:15> Eyes: General: appearance normal, both eyes and all related structures <Nora Rae NE - Last Filed: 09/03/20 19:15> EOM: EOMs intact bilaterally <Nora Rae NE - Last Filed: 09/03/20 19:15> Neck: Neck: Yes normal visual inspection and Yes no meningeal signs <Nora Rae NE - Last Filed: 09/03/20 19:15> Resp: Effort & Inspection: normal respiratory effort <Nora Rae NE - Last Filed: 09/03/20 19:15> Auscultation: clear to auscultation bilaterally, no rales, no rhonchi and no wheezes <Nora Rae NE - Last Filed: 09/03/20 19:15> Cardio: Rate: regular rate <Nora Rae NE - Last Filed: 09/03/20 19:15> Heart sounds: S1 normal heart sound present and S2 normal heart sound present <NEVA Barrientos Last Filed: 09/03/20 19:15> GI: Inspection: Yes normal to inspection <NEVA Barrientos Last Filed: 09/03/20 19:15> Palpation (GI): Soft to palpation, nontender, no guarding and not rigid <NEVA Barrientos Last Filed: 09/03/20 19:15> Skin: Rashes: no rashes <NEVA Barrientos Last Filed: 09/03/20 19:15> Wounds: no wounds <NEVA Barrientos Last Filed: 09/03/20 19:15> Neuro: General: patient oriented x3, tone normal, moves all extremities, no meningeal signs and no focal motor deficits <NEVA Barrientos Last Filed: 09/03/20 19:15> Extrem: General: Yes normal to inspection and Yes no pedal edema <NEVA Barrientos Last Filed: 09/03/20 19:15> Course Course Course Narrative: -slight leukopenia of 4.6, labs otherwise unremarkable -1900--ED care transferred to NEVA [facility] pending UA/SILVER, CXR, and evaluation by crisis <NEVA Barrientos Last Filed: 09/03/20 19:15> Lab workup largely unremarkable. He has been moved to the behavioral pod pending N evaluation. UA and Utox are still pending. Physician observation started at 11pm. Patient placed in physician observation because patient is awaiting [facility] evaluation for the possible need of inpatient psych admission. At the time observation was started patient's vital signs were stable. Patient is alert and oriented. Neuro exam is non-focal. CV: RRR and lungs are clear. Will continue to monitor. <NEVA Moulton - Last Filed: 09/03/20 22:58> Consultations Consultation #1: BHN <NEVA Moulton - Last Filed: 09/03/20 22:58> Medical Decision Making MDM Narrative Medical decision making narrative: 69-year-old male with a past medical history of hepatitis-C, hypertension, depression, polysubstance abuse, seizures, BIBA for failure to thrive, generalized weakness, and requesting to speak to crisis. Patient and significant other report patient has had decreased p.o. intake/anorexia worsening over the past 3 weeks. On exam hypotensive, tachycardic, dry mucous membranes, A&O x3, nontoxic appearing, lungs CTA, abdomen soft/nontender. Concern for dehydration/metabolic abnormalities. Rule out infectious etiology vs psychiatric illness. Plan: EKG, labs, UA, IVF, crisis consult <NEVA Barrientos - Last Filed: 09/03/20 19:15> Lab Data Result diagrams: : 09/03/20 16:21 09/03/20 16:21 <NEVA Barrientos - Last Filed: 09/03/20 19:15> Labs: Lab Results 09/03/20 09/03/20 09/03/20 Range/Units 16:21 16:21 16:21 WBC 4.6 L (4.8-10.8) X10*3/uL RBC 5.14 (4.60-5.80) X10*6/uL Hgb 14.1 (14.0-18.0) g/dl Hct 44.3 (42-52) % MCV 86.2 (80-98) fL MCH 27.4 (27.0-33.0) pg MCHC 31.8 (31.0-36.0) g/dl RDW 13.2 (11.0-16.0) % Plt Count 219 (160-400) X10*3/uL MPV 11.0 (9.4-12.4) fL Immature Gran % (Auto) 0.2 (0.0-0.4) % Neut % (Auto) 49.5 (45-73) % Lymph % (Auto) 37.0 (20-40) % [place] % (Auto) 9.3 (2-11) % Eos % (Auto) 3.3 (0-4) % Baso % (Auto) 0.7 (0-2) % Lymph # (Auto) 1.7 (1.2-4.9) X10*3/uL [place] # (Auto) 0.4 (0.1-1.2) X10*3/uL Eos # (Auto) 0.2 (0.0-0.4) X10*3/uL Baso # (Auto) 0.0 (0.0-0.2) X10*3/uL Abs Immat Gran (auto) 0.01 (0.00-0.03) X10*3/uL Absolute Neuts (auto) 2.3 (2.0-8.3) X10*3/uL Absolute Nucleated RBC 0.000 (0.0-0.012) X10*3/uL Nucleated RBC % (auto) 0.0 (0.0-0.2) /100WBC Sodium 139 (135-145) mmol/L Potassium 4.5 (3.3-5.1) mmol/L Chloride 103 (96-108) mmol/L Carbon Dioxide 30 H (22-29) mmol/L Anion Gap 11 L (12-20) BUN 16 (9-16) mg/dL Creatinine 0.85 (0.5-1.4) mg/dL Estim Creat Clear Calc 80.0 Estimated GFR > 60 Random Glucose 166 H D (60-115) mg/dL Calcium 9.3 (8.4-10.2) mg/dL Magnesium 2.0 (1.6-2.6) mg/dL Total Bilirubin 0.8 (0.0-1.0) mg/dL Direct Bilirubin 0.3 (0.0-0.5) mg/dL AST 18 (5-37) U/L ALT 12 (0-40) U/L Alkaline Phosphatase 50 (39-117) U/L Total Protein 6.4 L (6.5-8.0) g/dL Albumin 4.0 (3.5-5.0) g/dL Lipase 18 (8-78) U/L COVID-19 (SUKI) (Negative) COVID-19 Clin Com 09/03/20 Range/Units 16:21 WBC (4.8-10.8) X10*3/uL RBC (4.60-5.80) X10*6/uL Hgb (14.0-18.0) g/dl Hct (42-52) % MCV (80-98) fL MCH (27.0-33.0) pg MCHC (31.0-36.0) g/dl RDW (11.0-16.0) % Plt Count (160-400) X10*3/uL MPV (9.4-12.4) fL Immature Gran % (Auto) (0.0-0.4) % Neut % (Auto) (45-73) % Lymph % (Auto) (20-40) % [place] % (Auto) (2-11) % Eos % (Auto) (0-4) % Baso % (Auto) (0-2) % Lymph # (Auto) (1.2-4.9) X10*3/uL [place] # (Auto) (0.1-1.2) X10*3/uL Eos # (Auto) (0.0-0.4) X10*3/uL Baso # (Auto) (0.0-0.2) X10*3/uL Abs Immat Gran (auto) (0.00-0.03) X10*3/uL Absolute Neuts (auto) (2.0-8.3) X10*3/uL Absolute Nucleated RBC (0.0-0.012) X10*3/uL Nucleated RBC % (auto) (0.0-0.2) /100WBC Sodium (135-145) mmol/L Potassium (3.3-5.1) mmol/L Chloride (96-108) mmol/L Carbon Dioxide (22-29) mmol/L Anion Gap (12-20) BUN (9-16) mg/dL Creatinine (0.5-1.4) mg/dL Estim Creat Clear Calc Estimated GFR Random Glucose (60-115) mg/dL Calcium (8.4-10.2) mg/dL Magnesium (1.6-2.6) mg/dL Total Bilirubin (0.0-1.0) mg/dL Direct Bilirubin (0.0-0.5) mg/dL AST (5-37) U/L ALT (0-40) U/L Alkaline Phosphatase (39-117) U/L Total Protein (6.5-8.0) g/dL Albumin (3.5-5.0) g/dL Lipase (8-78) U/L COVID-19 (SUKI) Negative (Negative) COVID-19 Clin Com See Note <NEVA Barrientos - Last Filed: 09/03/20 19:15> Lab Results 09/03/20 09/03/2009/03/21 Range/Units 16:21 16:21 16:21 WBC 4.6 L (4.8-10.8) X10*3/uL RBC 5.14 (4.60-5.80) X10*6/uL Hgb 14.1 (14.0-18.0) g/dl Hct 44.3 (42-52) % MCV 86.2 (80-98) fL MCH 27.4 (27.0-33.0) pg MCHC 31.8 (31.0-36.0) g/dl RDW 13.2 (11.0-16.0) % Plt Count 219 (160-400) X10*3/uL MPV 11.0 (9.4-12.4) fL Immature Gran % (Auto) 0.2 (0.0-0.4) % Neut % (Auto) 49.5 (45-73) % Lymph % (Auto) 37.0 (20-40) % [place] % (Auto) 9.3 (2-11) % Eos % (Auto) 3.3 (0-4) % Baso % (Auto) 0.7 (0-2) % Lymph # (Auto) 1.7 (1.2-4.9) X10*3/uL [place] # (Auto) 0.4 (0.1-1.2) X10*3/uL Eos # (Auto) 0.2 (0.0-0.4) X10*3/uL Baso # (Auto) 0.0 (0.0-0.2) X10*3/uL Abs Immat Gran (auto) 0.01 (0.00-0.03) X10*3/uL Absolute Neuts (auto) 2.3 (2.0-8.3) X10*3/uL Absolute Nucleated RBC 0.000 (0.0-0.012) X10*3/uL Nucleated RBC % (auto) 0.0 (0.0-0.2) /100WBC Sodium 139 (135-145) mmol/L Potassium 4.5 (3.3-5.1) mmol/L Chloride 103 (96-108) mmol/L Carbon Dioxide 30 H (22-29) mmol/L Anion Gap 11 L (12-20) BUN 16 (9-16) mg/dL Creatinine 0.85 (0.5-1.4) mg/dL Estim Creat Clear Calc 80.0 Estimated GFR > 60 Random Glucose 166 H D (60-115) mg/dL Calcium 9.3 (8.4-10.2) mg/dL Magnesium 2.0 (1.6-2.6) mg/dL Total Bilirubin 0.8 (0.0-1.0) mg/dL Direct Bilirubin 0.3 (0.0-0.5) mg/dL AST 18 (5-37) U/L ALT 12 (0-40) U/L Alkaline Phosphatase 50 (39-117) U/L Total Protein 6.4 L (6.5-8.0) g/dL Albumin 4.0 (3.5-5.0) g/dL Lipase 18 (8-78) U/L COVID-19 (SUKI) (Negative) COVID-19 Clin Com 09/03/20 Range/Units 16:21 WBC (4.8-10.8) X10*3/uL RBC (4.60-5.80) X10*6/uL Hgb (14.0-18.0) g/dl Hct (42-52) % MCV (80-98) fL MCH (27.0-33.0) pg MCHC (31.0-36.0) g/dl RDW (11.0-16.0) % Plt Count (160-400) X10*3/uL MPV (9.4-12.4) fL Immature Gran % (Auto) (0.0-0.4) % Neut % (Auto) (45-73) % Lymph % (Auto) (20-40) % [place] % (Auto) (2-11) % Eos % (Auto) (0-4) % Baso % (Auto) (0-2) % Lymph # (Auto) (1.2-4.9) X10*3/uL [place] # (Auto) (0.1-1.2) X10*3/uL Eos # (Auto) (0.0-0.4) X10*3/uL Baso # (Auto) (0.0-0.2) X10*3/uL Abs Immat Gran (auto) (0.00-0.03) X10*3/uL Absolute Neuts (auto) (2.0-8.3) X10*3/uL Absolute Nucleated RBC (0.0-0.012) X10*3/uL Nucleated RBC % (auto) (0.0-0.2) /100WBC Sodium (135-145) mmol/L Potassium (3.3-5.1) mmol/L Chloride (96-108) mmol/L Carbon Dioxide (22-29) mmol/L Anion Gap (12-20) BUN (9-16) mg/dL Creatinine (0.5-1.4) mg/dL Estim Creat Clear Calc Estimated GFR Random Glucose (60-115) mg/dL Calcium (8.4-10.2) mg/dL Magnesium (1.6-2.6) mg/dL Total Bilirubin (0.0-1.0) mg/dL Direct Bilirubin (0.0-0.5) mg/dL AST (5-37) U/L ALT (0-40) U/L Alkaline Phosphatase (39-117) U/L Total Protein (6.5-8.0) g/dL Albumin (3.5-5.0) g/dL Lipase (8-78) U/L COVID-19 (SUKI) Negative (Negative) COVID-19 Clin Com See Note <NEVA Moulton - Last Filed: 09/03/20 22:58> ECG Data Attestation: I personally reviewed and interpreted this ECG as follows: <NEVA Barrientos Last Filed: 09/03/20 19:15> Interpretation: EKG normal sinus rhythm with a rate of 81. Nonischemic-no STEMI <NEVA Barrientos Last Filed: 09/03/20 19:15> Discharge Plan Discharge Clinical Impression: Adult failure to thrive <NEVA Barrientos Last Filed: 09/03/20 19:15> Prescriptions: No Action mirtazapine 30 mg Tablet 30 mg PO BEDTIME Qty: 15 RF: 1 gabapentin 400 mg capsule 400 mg PO BID RF: 0 aripiprazole 30 mg tablet 1 tab PO BEDTIME RF: 0 <NEVA Barrientos Last Filed: 09/03/20 19:15>
[2020-09-03 16:30] LABS: MANUAL DIFF FLAG NO
[2020-09-03 16:35] LABS: Basophils Percent Auto 0.7 % (0-2); Eosinophils Absolute Auto 0.2 X10*3/uL (0.0-0.4); Eosinophils Percent Auto 3.3 % (0-4); Hematocrit 44.3 % (42-52); Hemoglobin 14.1 g/dl (14.0-18.0); Imm Gran Abs Auto 0.01 X10*3/uL (0.00-0.03); Imm Gran Pct Auto 0.2 % (0.0-0.4); Lymphocytes Absolute Auto 1.7 X10*3/uL (1.2-4.9); Mean Corpuscular HGB Conc 31.8 g/dl (31.0-36.0); Mean Corpuscular Hemoglobin 27.4 pg (27.0-33.0); Mean Corpuscular Volume 86.2 fL (80-98); Monocytes Absolute Auto 0.4 X10*3/uL (0.1-1.2); Monocytes Percent Auto 9.3 % (2-11); Neutrophils Absolute Auto 2.3 X10*3/uL (2.0-8.3); Neutrophils Percent Auto 49.5 % (45-73); Platelet Count 219 X10*3/uL (160-400); Red Blood Count 5.14 X10*6/uL (4.60-5.80); Red Cell Distribution Width 13.2 % (11.0-16.0); White Blood Count 4.6 X10*3/uL (4.8-10.8)
[2020-09-03 16:53] LABS: COVID-19 Test Negative (Negative)
[2020-09-03 17:02] LABS: Alanine Aminotransferase 12 U/L (0-40); Alkaline Phosphatase 50 U/L (39-117); Anion Gap 11 (12-20); Aspartate Amino Transferase 18 U/L (5-37); Bilirubin Direct 0.3 mg/dL (0.0-0.5); Bilirubin Total 0.8 mg/dL (0.0-1.0); Blood Urea Nitrogen 16 mg/dL (9-16); Calcium 9.3 mg/dL (8.4-10.2); Carbon Dioxide 30 mmol/L (22-29); Chloride 103 mmol/L (96-108); Estimated Glomerular Filt Rate > 60; Glucose Random 166 mg/dL (60-115); Potassium 4.5 mmol/L (3.3-5.1); Sodium 139 mmol/L (135-145); Total Protein 6.4 g/dL (6.5-8.0)
[2020-09-03 17:03] LABS: Lipase 18 U/L (8-78)
[2020-09-03 18:36] VITALS: BP 109/85; PULSE 73; RESP 18; TEMP 36.6; O2SAT 100
--- NOTE | 2020-09-03 19:30 | PC.NURSE ---
passed ambulation trial. pt ambulated 150ft without difficulty. per charge attendant okay to transfer to pod. pt changed into crisis clothes.
--- NOTE | 2020-09-03 19:58 | PC.NURSE ---
SMART SHEET SENT at this time.
--- NOTE | 2020-09-03 22:33 | PC.NURSE ---
Patient got transferred from main ED, ambulatory, disheveled, affect flat, denied distress at this time, N called to confirm, no clinician available for tonight, will continue to monitor.
--- NOTE | 2020-09-04 00:06 | MHC.CARE ---
CARE team followed up on pt's care due to [facility]'s response time. Pt is currently medicated and sleeping. Pt is not able to provide a urine at this time. Pt has has a hx of UTI in 2018. Given pt's age, a UTI should be ruled out. [facility] reports they will have a clinician available in the morning.
[2020-09-04] MEDS: Gabapentin 400 MG CAPSULE PO ×2 (00:40→08:50)
[2020-09-04] MEDS: Mirtazapine 30 MG TABLET PO (00:40)
[2020-09-04 00:45] VITALS: BP 94/66; PULSE 65; RESP 15; TEMP 36.4; O2SAT 98
--- NOTE | 2020-09-04 00:52 | MHC.CARE ---
Pt seen by CARE team. Pt was unable to provide pertinent information and responses were vague. I contacted significant other with no response, I talked about IP with pt and he agrees only if he can go tomorrow . I am unable to gather if pt is putting himself at risk, however pt is voluntary at this time. Pt will be an IP bedsearch and CARE team will f/u with [facility] tomorrow to determine if they have any available beds. CARE team will reevaluate him if placement is not secured and connect with his significant other to gather more information. Pt is an Inpatient bedsearch at this time.
[2020-09-04] MEDS: ARIPiprazole 30 MG TABLET PO ×2 (00:57→20:22)
[2020-09-04 01:16] LABS: Glucose Urine UA NEG (NEG); Leukocyte Esterase Urine NEG (NEG); Nitrite Urine NEG (NEG); Urine Blood NEG (NEG); Urine Ketones 15 MG/DL (NEG); Urine Protein NEG (NEG-TRACE)
[2020-09-04 01:18] LABS: Appearance Urine HAZY; Color Urine YELLOW; UACC Culture Trigger NO
[2020-09-04 01:48] LABS: Amphetamine Screen Urine Not Detected (Not Detect); Barbiturates, Urine Not Detected (Not Detect); Benzodiazepines Screen Urine Not Detected (Not Detect); Cannabinoid Screen Urine Not Detected (Not Detect); Cocaine Screen Urine Not Detected (Not Detect); Opiate Screen Urine Not Detected (Not Detect); Phencyclidine Screen Urine Not Detected (Not Detect)
--- NOTE | 2020-09-04 03:44 | PC.NURSE ---
this is one of several admissions for this 69 year old male. legal:CV dx: MDD, severe, recurrent. pt was referred to from the CARE team after assessment in the [facility]. nurse to nurse, collateral information obtained prior to admission. patient with past medical hx of; hepatitis c, htn, depression, seizure, polysubstance abuse. SILVER - for substances, reports he does not drink alcohol and reports he is a former smoker and has not smoked in ''years'' medications verified by [facility] pharmacist but patient is unable to identify who prescriber is. Pharmacy was called by t/w asking who had prescribed medications. pharmacy offered phone number and when number called it went to voice mail at the [facility] insurance. patient does report that he has VNA services and that he has a therapist, Divya, at [facility]. unable to identify PCP or prescriber. no substance issues at this time. pt presents as depressed and withdrawn. fully oriented. denied si but appeared hopeless acknowledging that he has been having ''trouble with my depression'' reports ''i have no energy, i'm not eating well, i don't have an appetite'' soft spoken and slow to respond. pt is disheveled and admits to not taking care of self. safety tool completed. oriented to unit. treatment plan initiated.
[2020-09-04 06:00] VITALS: BP 133/73; PULSE 95; TEMP 36.1; O2SAT 99
[2020-09-04 07:00] VITALS: BMI 22.2
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
[2020-09-04] MEDS: Sertraline HCL 50 MG TABLET PO (13:06)
--- NOTE | 2020-09-04 13:45 | MHC.CLN ---
RE: CONSULT HT 68 WT 150# IBW 154+/-10% PT IS 97% IBW INDICATES ADEQUATE WT FOR HT. 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
[2020-09-04 16:20] VITALS: BP 90/58; PULSE 68; RESP 16; TEMP 36.3; O2SAT 100
[2020-09-04] MEDS: Mirtazapine 15 MG TABLET 45 MG PO (20:22)
[2020-09-04] MEDS: Gabapentin 100 MG CAPSULE 200 MG PO (20:22)
[2020-09-05 06:39] VITALS: BP 114/68; PULSE 67; RESP 18; TEMP 36.1; O2SAT 95
[2020-09-05 09:02] LABS: Cholesterol 143 mg/dL; HDL Cholesterol 41 mg/dL; LDL Cholesterol Calculated 86 mg/dl; Triglycerides 81 mg/dL
[2020-09-05 09:22] LABS: Thyroid Stimulating Hormone 1.04 uIU/mL (0.32-4.0)
[2020-09-05 09:41] LABS: Estimated Average Glucose 97 mg/dL
[2020-09-05 09:53] LABS: Folate 9.8 ng/mL (> or = 4.0); Vitamin B12 485 pg/mL (200-900)
[2020-09-05] MEDS: Gabapentin 100 MG CAPSULE 200 MG PO (09:55)
[2020-09-05] MEDS: Sertraline HCL 50 MG TABLET PO (09:55)
--- NOTE | 2020-09-05 10:08 | P.PNPSI_ITS ---
Subjective Subjective Date of Service: 09/05/20 Reason For Visit: SI Interim History: pt reports he is feeling a little better. hair wet, having just taken a shower. reports he ate dinner last night. no complaints or requests, content to continue with current plan for now. Mental Status Exam Mental Status Exam Narrative: just showered, dressed in [facility], adequately groomed. no PMA/PMR. cooperative with interview. speech terse. nml rate, decr amount, nml loudness, nml tone, nml latency. thoughts linear and logical without evidence of delusions or paranoia. affect constricted, normo-intense, non-labile. mood a little better. no SI/HI/AVH expressed. Diagnostics Vital Signs (24Hr): Vital Signs - 24 hr 09/04/20 16:20 09/05/20 06:39 Temperature 97.3 F 97 F Pulse Rate 68 67 Respiratory Rate 16 18 Blood Pressure 90/58 L 114/68 Pulse Oximetry 100 95 Body Mass Index 22.8 Labs Results: 09/03/20 16:21 09/03/20 16:21 Labs: Laboratory Results - last 48 hr 09/03/20 09/03/20 09/03/20 16:21 16:21 16:21 WBC 4.6 L RBC 5.14 Hgb 14.1 Hct 44.3 MCV 86.2 MCH 27.4 MCHC 31.8 RDW 13.2 Plt Count 219 MPV 11.0 Immature Gran % (Auto) 0.2 Neut % (Auto) 49.5 Lymph % (Auto) 37.0 [place] % (Auto) 9.3 Eos % (Auto) 3.3 Baso % (Auto) 0.7 Lymph # (Auto) 1.7 [place] # (Auto) 0.4 Eos # (Auto) 0.2 Baso # (Auto) 0.0 Abs Immat Gran (auto) 0.01 Absolute Neuts (auto) 2.3 Absolute Nucleated RBC 0.000 Nucleated RBC % (auto) 0.0 Sodium 139 Potassium 4.5 Chloride 103 Carbon Dioxide 30 H Anion Gap 11 L BUN 16 Creatinine 0.85 Estim Creat Clear Calc 80.0 Estimated GFR > 60 Random Glucose 166 H D Estimat Average Glucose Hemoglobin A1c % Calcium 9.3 Magnesium 2.0 Total Bilirubin 0.8 Direct Bilirubin 0.3 AST 18 ALT 12 Alkaline Phosphatase 50 Total Protein 6.4 L Albumin 4.0 Triglycerides Cholesterol LDL Cholesterol, Calc HDL Cholesterol Lipase 18 Vitamin B12 Folate TSH Urine Color Urine Appearance Urine pH Ur Specific [place] Urine Protein Urine Glucose (UA) Urine Ketones Urine Blood Urine Nitrite Ur Leukocyte Esterase Urine Opiates Screen Ur Barbiturates Screen Ur Phencyclidine Scrn Ur Amphetamines Screen U Benzodiazepines Scrn Urine Cocaine Screen U Marijuana (THC) Screen COVID-19 (SUKI) COVID-19 Clin Com 09/03/20 09/04/20 09/04/20 16:21 00:52 00:52 WBC RBC Hgb Hct MCV MCH MCHC RDW Plt Count MPV Immature Gran % (Auto) Neut % (Auto) Lymph % (Auto) [place] % (Auto) Eos % (Auto) Baso % (Auto) Lymph # (Auto) [place] # (Auto) Eos # (Auto) Baso # (Auto) Abs Immat Gran (auto) Absolute Neuts (auto) Absolute Nucleated RBC Nucleated RBC % (auto) Sodium Potassium Chloride Carbon Dioxide Anion Gap BUN Creatinine Estim Creat Clear Calc Estimated GFR Random Glucose Estimat Average Glucose Hemoglobin A1c % Calcium Magnesium Total Bilirubin Direct Bilirubin AST ALT Alkaline Phosphatase Total Protein Albumin Triglycerides Cholesterol LDL Cholesterol, Calc HDL Cholesterol Lipase Vitamin B12 Folate TSH Urine Color YELLOW Urine Appearance HAZY Urine pH 7.0 Ur Specific [place] 1.020 Urine Protein NEG Urine Glucose (UA) NEG Urine Ketones 15 Urine Blood NEG Urine Nitrite NEG Ur Leukocyte Esterase NEG Urine Opiates Screen Not Detected Ur Barbiturates Screen Not Detected Ur Phencyclidine Scrn Not Detected Ur Amphetamines Screen Not Detected U Benzodiazepines Scrn Not Detected Urine Cocaine Screen Not Detected U Marijuana (THC) Screen Not Detected COVID-19 (SUKI) Negative COVID-19 Clin Com See Note 09/05/20 09/05/20 09/05/20 07:59 07:59 07:59 WBC RBC Hgb Hct MCV MCH MCHC RDW Plt Count MPV Immature Gran % (Auto) Neut % (Auto) Lymph % (Auto) [place] % (Auto) Eos % (Auto) Baso % (Auto) Lymph # (Auto) [place] # (Auto) Eos # (Auto) Baso # (Auto) Abs Immat Gran (auto) Absolute Neuts (auto) Absolute Nucleated RBC Nucleated RBC % (auto) Sodium Potassium Chloride Carbon Dioxide Anion Gap BUN Creatinine Estim Creat Clear Calc Estimated GFR Random Glucose Estimat Average Glucose 97 Hemoglobin A1c % 5.0 Calcium Magnesium Total Bilirubin Direct Bilirubin AST ALT Alkaline Phosphatase Total Protein Albumin Triglycerides 81 Cholesterol 143 LDL Cholesterol, Calc 86 HDL Cholesterol 41 Lipase Vitamin B12 485 Folate 9.8 TSH 1.04 Urine Color Urine Appearance Urine pH Ur Specific [place] Urine Protein Urine Glucose (UA) Urine Ketones Urine Blood Urine Nitrite Ur Leukocyte Esterase Urine Opiates Screen Ur Barbiturates Screen Ur Phencyclidine Scrn Ur Amphetamines Screen U Benzodiazepines Scrn Urine Cocaine Screen U Marijuana (THC) Screen COVID-19 (SUKI) COVID-19 Clin Com Imaging Radiology Impressions: ITS Impressions Chest X-Ray 09/03/20 19:14 IMPRESSION: No radiographic evidence of acute cardiopulmonary disease. Medications Medications Current Medications Generic Name Dose Route Start Last Admin Trade Name Freq PRN Reason Stop Dose Admin Acetaminophen 650 mg 09/04/20 02:25 Acetaminophen 325 Mg Tablet PO Q6H PRN Headache/Pain Mild Scale (1-3) Al Hydroxide/Mg Hydroxide 30 ml 09/04/20 02:25 Magnesium Hydrox/Alum Hydrox 30 Ml Oral.Susp PO Q6H PRN Heartburn/Nausea Aripiprazole 30 mg 09/04/20 21:00 09/04/20 20:22 Aripiprazole 30 Mg Tablet PO 30 mg BEDTIME CANDY Administration Gabapentin 200 mg 09/04/20 21:00 09/05/20 09:55 Gabapentin 100 Mg Capsule PO 200 mg BID CANDY Administration Hydroxyzine HCl 25 mg 09/04/20 02:25 Hydroxyzine Hcl 25 Mg Tablet PO BEDTIME PRN Anxiety Magnesium Hydroxide 30 ml 09/04/20 02:25 Milk Of Magnesia 30 Ml Oral.Susp PO DAILY PRN Constipation Mirtazapine 45 mg 09/04/20 21:00 09/04/20 20:22 Mirtazapine 15 Mg Tablet PO 45 mg BEDTIME CANDY Administration Pharmacy Consult 1 each 09/03/20 15:54 Consult Rx Perform Med Rec MISCELLANE ONCE PRN Consult order Sertraline HCl 50 mg 09/05/20 09:00 09/05/20 09:55 Sertraline Hcl 50 Mg Tablet PO 50 mg DAILY CANDY Administration Allergies Allergies Allergy/AdvReac Type Severity Reaction Status Date / Time bee pollen [BEE STINGS] Allergy Unknown ARM Verified 02/03/20 00:43 SWELLING codeine [CODEINE] Allergy Unknown HIVES, Verified 02/03/20 00:43 NAUSEA bee stings Allergy Unknown Swelling Uncoded 02/03/20 00:43 Assessment & Plan Assessment & Plan (1) Major depression, recurrent, chronic: Status: Acute Code(s): F33.9 - Major depressive disorder, recurrent, unspecified Assessment and Plan: continue abilify 30 mg Qhs. pt reportedly has a h/o psychosis; also perhaps useful as adjunctive anti-depressant. increased HS remeron to 45 mg 09/04 for insomnia and depression. slept well 09/04 overnight. started zoloft 50 mg daily 09/04 for anxiety and depression. tapering gabapentin. decreased from 400 BID to 200 BID 09/04, to 100 BID for a day then DC. groups, keep safe on unit. Greater than 50% of the session was spent on counseling and/or coordination of care Reason for contiued inpatient stay Substantial Risk for: inability to function and rapid decompensation
[2020-09-05 17:50] VITALS: BP 105/73; PULSE 88; TEMP 36.2
[2020-09-05] MEDS: ARIPiprazole 30 MG TABLET PO (20:51)
[2020-09-05] MEDS: Mirtazapine 15 MG TABLET 45 MG PO (20:51)
[2020-09-05] MEDS: Gabapentin 100 MG CAPSULE PO (20:51)
[2020-09-06] MEDS: Gabapentin 100 MG CAPSULE PO ×2 (09:25→21:01)
[2020-09-06] MEDS: Sertraline HCL 50 MG TABLET PO (09:25)
[2020-09-06 09:28] VITALS: BP 101/65; PULSE 100; RESP 20
--- NOTE | 2020-09-06 14:54 | P.PNPSI_ITS ---
Subjective Subjective Date of Service: 09/06/20 Reason For Visit: SI Interim History: reports being here for sleep difficulties and anxiety. Feels the current treatment plan is helpful. Was sitting in chair in hallway for long period of time this morning. Reports mood is feeling better. Denied medication issues or concerns. Aware that the Zoloft had recently been started. As per s taff is isolative times but is sleeping better and mood is brighter. Medication Compliance: Yes Review of Systems Review of Systems Unremarkable Mental Status Exam Mental Status Exam Narrative: pleasant and engaged. Hospital clothing. Slightly disheveled. Organized. Restricted affect. Denied SI or HI. Denies psychosis. Insight and judgment fair Diagnostics Vital Signs (24Hr): Vital Signs - 24 hr 09/05/20 17:50 09/06/20 09:28 Temperature 97.1 F Pulse Rate 88 100 Respiratory Rate 20 Blood Pressure 105/73 101/65 Body Mass Index 22.2 Labs Results: 09/03/20 16:21 09/03/20 16:21 Labs: Laboratory Results - last 48 hr 09/05/20 09/05/20 09/05/20 07:59 07:59 07:59 Estimat Average Glucose 97 Hemoglobin A1c % 5.0 Triglycerides 81 Cholesterol 143 LDL Cholesterol, Calc 86 HDL Cholesterol 41 Vitamin B12 485 Folate 9.8 TSH 1.04 Imaging Radiology Impressions: ITS Impressions Chest X-Ray 09/03/20 19:14 IMPRESSION: No radiographic evidence of acute cardiopulmonary disease. Medications Medications Current Medications Generic Name Dose Route Start Last Admin Trade Name Freq PRN Reason Stop Dose Admin Acetaminophen 650 mg 09/04/20 02:25 Acetaminophen 325 Mg Tablet PO Q6H PRN Headache/Pain Mild Scale (1-3) Al Hydroxide/Mg Hydroxide 30 ml 09/04/20 02:25 Magnesium Hydrox/Alum Hydrox 30 Ml Oral.Susp PO Q6H PRN Heartburn/Nausea Aripiprazole 30 mg 09/04/20 21:00 09/05/20 20:51 Aripiprazole 30 Mg Tablet PO 30 mg BEDTIME CANDY Administration Gabapentin 100 mg 09/05/20 21:00 09/06/20 09:25 Gabapentin 100 Mg Capsule PO 09/06/20 23:59 100 mg BID CANDY Administration Hydroxyzine HCl 25 mg 09/04/20 02:25 Hydroxyzine Hcl 25 Mg Tablet PO BEDTIME PRN Anxiety Magnesium Hydroxide 30 ml 09/04/20 02:25 Milk Of Magnesia 30 Ml Oral.Susp PO DAILY PRN Constipation Mirtazapine 45 mg 09/04/20 21:00 09/05/20 20:51 Mirtazapine 15 Mg Tablet PO 45 mg BEDTIME [facility] Administration Pharmacy Consult 1 each 09/03/20 15:54 Consult Rx Perform Med Rec MISCELLANE ONCE PRN Consult order Sertraline HCl 50 mg 09/05/20 09:00 09/06/20 09:25 Sertraline Hcl 50 Mg Tablet PO 50 mg DAILY CANDY Administration Allergies Allergies Allergy/AdvReac Type Severity Reaction Status Date / Time bee pollen [BEE STINGS] Allergy Unknown ARM Verified 02/03/20 00:43 SWELLING codeine [CODEINE] Allergy Unknown HIVES, Verified 02/03/20 00:43 NAUSEA bee stings Allergy Unknown Swelling Uncoded 02/03/20 00:43 Assessment & Plan Assessment & Plan (1) Major depression, recurrent, chronic: Status: Acute Code(s): F33.9 - Major depressive disorder, recurrent, unspecified Assessment and Plan: no changes to primary team's treatment plan and evaluation on 09/05/2020, which was: continue abilify 30 mg Qhs. pt reportedly has a h/o psychosis; also perhaps useful as adjunctive anti-depressant. increased HS remeron to 45 mg 09/04 for insomnia and depression. slept well 09/04 overnight. started zoloft 50 mg daily 09/04 for anxiety and depression. tapering gabapentin. decreased from 400 BID to 200 BID 09/04, to 100 BID for a day then DC. groups, keep safe on unit. Greater than 50% of the session was spent on counseling and/or coordination of care Reason for contiued inpatient stay Substantial Risk for: harm to self and rapid decompensation
[2020-09-06 18:00] VITALS: RESP 16
[2020-09-06] MEDS: Mirtazapine 15 MG TABLET 45 MG PO (21:01)
[2020-09-06] MEDS: ARIPiprazole 30 MG TABLET PO (21:01)
[2020-09-07 06:00] VITALS: BP 143/71; PULSE 61; RESP 18; TEMP 36.5; O2SAT 100
[2020-09-07] MEDS: Sertraline HCL 50 MG TABLET PO (09:03)
--- NOTE | 2020-09-07 15:17 | HO.PSYCHPN ---
Subjective Subjective Date of Service: 09/07/20 Reason For Visit: SI Interim History: Reports things continue to go well. Continues to report sleep and anxiety are improved. No medication concerns. Denies side effects from recently started Zoloft. Review of Systems Review of Systems Unremarkable Yes all other systems are reviewed and are negative Mental Status Exam Mental Status Exam Narrative: Seen in room. pleasant and engaged. Hospital clothing. Slightly disheveled. Organized. Restricted affect. Denied SI or HI. Denies psychosis. Insight and judgment fair Diagnostics Vital Signs (24Hr): Vital Signs - 24 hr 09/06/20 18:00 09/07/20 06:00 Temperature 97.7 F Pulse Rate 61 Respiratory Rate 16 18 Blood Pressure 143/71 H Pulse Oximetry 100 Body Mass Index 22.2 Labs Results: 09/03/20 16:21 09/03/20 16:21 Imaging Radiology Impressions: ITS Impressions Chest X-Ray 09/03/20 19:14 IMPRESSION: No radiographic evidence of acute cardiopulmonary disease. Medications Medications Current Medications Generic Name Dose Route Start Last Admin Trade Name Freq PRN Reason Stop Dose Admin Acetaminophen 650 mg 09/04/20 02:25 Acetaminophen 325 Mg Tablet PO Q6H PRN Headache/Pain Mild Scale (1-3) Al Hydroxide/Mg Hydroxide 30 ml 09/04/20 02:25 Magnesium Hydrox/Alum Hydrox 30 Ml Oral.Susp PO Q6H PRN Heartburn/Nausea Aripiprazole 30 mg 09/04/20 21:00 09/06/20 21:01 Aripiprazole 30 Mg Tablet PO 30 mg BEDTIME CANDY Administration Hydroxyzine HCl 25 mg 09/04/20 02:25 Hydroxyzine Hcl 25 Mg Tablet PO BEDTIME PRN Anxiety Magnesium Hydroxide 30 ml 09/04/20 02:25 Milk Of Magnesia 30 Ml Oral.Susp PO DAILY PRN Constipation Mirtazapine 45 mg 09/04/20 21:00 09/06/20 21:01 Mirtazapine 15 Mg Tablet PO 45 mg BEDTIME CANDY Administration Pharmacy Consult 1 each 09/03/20 15:54 Consult Rx Perform Med Rec MISCELLANE ONCE PRN Consult order Sertraline HCl 50 mg 09/05/20 09:00 09/07/20 09:03 Sertraline Hcl 50 Mg Tablet PO 50 mg DAILY CANDY Administration Allergies Allergies Allergy/AdvReac Type Severity Reaction Status Date / Time bee pollen [BEE STINGS] Allergy Unknown ARM Verified 12/20/20 00:43 SWELLING codeine [CODEINE] Allergy Unknown HIVES, Verified 02/03/20 00:43 NAUSEA bee stings Allergy Unknown Swelling Uncoded 02/03/20 00:43 Assessment & Plan Assessment & Plan (1) Major depression, recurrent, chronic: Status: Acute Code(s): F33.9 - Major depressive disorder, recurrent, unspecified Assessment and Plan: no changes to primary team's treatment plan and evaluation on 09/05/2020, which was: continue abilify 30 mg Qhs. pt reportedly has a h/o psychosis; also perhaps useful as adjunctive anti-depressant. increased HS remeron to 45 mg 09/04 for insomnia and depression. slept well 09/04 overnight. started zoloft 50 mg daily 09/04 for anxiety and depression. tapering gabapentin. decreased from 400 BID to 200 BID 09/04, to 100 BID for a day then DC. groups, keep safe on unit. Greater than 50% of the session was spent on counseling and/or coordination of care Reason for contiued inpatient stay Substantial Risk for: inability to function and rapid decompensation
[2020-09-07 16:50] VITALS: BP 120/75; PULSE 86; TEMP 36.6
[2020-09-07] MEDS: ARIPiprazole 30 MG TABLET PO (20:57)
[2020-09-07] MEDS: Mirtazapine 15 MG TABLET 45 MG PO (20:57)
[2020-09-08 06:00] VITALS: BP 147/90; PULSE 99; RESP 18; TEMP 35.8; O2SAT 99
[2020-09-08] MEDS: Sertraline HCL 50 MG TABLET PO (08:38)
--- NOTE | 2020-09-08 14:17 | HO.PSYCHPN ---
Subjective Subjective Date of Service: 09/09/20 Reason For Visit: SI Interim History: Patient lying in bed on approach. He says he is ?a little better ? and anxiety a little lower, but still depressed. Patient has a hard time articulating how he can tell he's improved, but he says he is eating better and sleeping has improved. He denies any SI. He says that he is anxious in groups and does not usually go, but agrees to start going 1 so day. Patient also agrees to increasing Zoloft to 75 mg; he denies any medication side effects. Patient remains unkempt, scruffy looking and with little attention to ADLs; he answers and 2-3 words only and is difficult to engage. Mental Status Exam Mental Status Exam Narrative: Pt is alert and oriented; behavior is semi-cooperative and difficult to engage, given only 2-3 word answers to most questions; dressed in hospital gown, scuffy and unkempt looking with poor hygiene; mood is described as depressed and affect congruent; poor eye contact; Speech is normal rate, volume and prosody and not pressured but limited to few words; some psychomotor retardation present; thought process is organized and goal directed. Thought content somewhat vacuous, but denies SI or HI and is pertinent to relevant topics and without any delusional content, paranoid ideations or grandiosity; as mentioned, denies any SI/HI. There is no evidence of perceptual disturbance. Patients insight and judgment are impaired. Diagnostics Vital Signs (24Hr): Vital Signs - 24 hr 09/07/20 16:50 09/08/20 06:00 Temperature 97.8 F 96.5 F L Pulse Rate 86 99 Respiratory Rate 18 Blood Pressure 120/75 147/90 H Pulse Oximetry 99 Body Mass Index 22.2 Labs Results: 09/03/20 16:21 09/03/20 16:21 Imaging Radiology Impressions: ITS Impressions Chest X-Ray 09/03/20 19:14 IMPRESSION: No radiographic evidence of acute cardiopulmonary disease. Medications Medications Current Medications Generic Name Dose Route Start Last Admin Trade Name Freq PRN Reason Stop Dose Admin Acetaminophen 650 mg 09/04/20 02:25 Acetaminophen 325 Mg Tablet PO Q6H PRN Headache/Pain Mild Scale (1-3) Al Hydroxide/Mg Hydroxide 30 ml 09/04/20 02:25 Magnesium Hydrox/Alum Hydrox 30 Ml Oral.Susp PO Q6H PRN Heartburn/Nausea Aripiprazole 30 mg 09/04/20 21:00 09/07/20 20:57 Aripiprazole 30 Mg Tablet PO 30 mg BEDTIME CANDY Administration Hydroxyzine HCl 25 mg 09/04/20 02:25 Hydroxyzine Hcl 25 Mg Tablet PO BEDTIME PRN Anxiety Magnesium Hydroxide 30 ml 09/04/20 02:25 Milk Of Magnesia 30 Ml Oral.Susp PO DAILY PRN Constipation Mirtazapine 45 mg 09/04/20 21:00 09/07/20 20:57 Mirtazapine 15 Mg Tablet PO 45 mg BEDTIME CANDY Administration Pharmacy Consult 1 each 09/03/20 15:54 Consult Rx Perform Med Rec MISCELLANE ONCE PRN Consult order Sertraline HCl 50 mg 09/05/20 09:00 09/08/20 08:38 Sertraline Hcl 50 Mg Tablet PO 50 mg DAILY CANDY Administration Allergies Allergies Allergy/AdvReac Type Severity Reaction Status Date / Time bee pollen [BEE STINGS] Allergy Unknown ARM Verified 02/03/20 00:43 SWELLING codeine [CODEINE] Allergy Unknown HIVES, Verified 02/03/20 00:43 NAUSEA bee stings Allergy Unknown Swelling Uncoded 02/03/20 00:43 Assessment & Plan Assessment & Plan (1) Major depression, recurrent, chronic: Status: Acute Code(s): F33.9 - Major depressive disorder, recurrent, unspecified Assessment and Plan: IMPRESSION: 69-year-old male with a past medical history of hepatitis-C, hypertension, depression, polysubstance abuse, seizures, presenting for severe depression, Patient denies SI; continued on home med of Abilify, increased Remeron and added Zoloft. Will continue to monitor Currently, pt should remain on inpt unit for continued stabilization; Barrier to patient being treated as an outpatient is his continued depression interfering with attending to daily life activities including eating PLAN: continue abilify 30 mg Qhs. pt reportedly has a h/o psychosis; also perhaps useful as adjunctive anti-depressant. continue HS remeron to 45 mg (increased on 09/04 for insomnia and depression). started zoloft; increase to 75mg on 09/09 anxiety and depression. tapered and dc'd gabapentin . Greater than 50% of the session was spent on counseling and/or coordination of care Reason for contiued inpatient stay Substantial Risk for: inability to function and rapid decompensation
[2020-09-08 18:00] VITALS: BP 112/70; PULSE 108; RESP 18; TEMP 36.5; O2SAT 99
[2020-09-08] MEDS: Mirtazapine 15 MG TABLET 45 MG PO (20:46)
[2020-09-08] MEDS: ARIPiprazole 30 MG TABLET PO (20:46)
[2020-09-09 06:26] VITALS: BP 126/65; PULSE 108; TEMP 36.2; O2SAT 98
[2020-09-09] MEDS: Sertraline HCL 25 MG TABLET 75 MG PO (08:11)
--- NOTE | 2020-09-09 13:44 | HO.PSYCHPN ---
Subjective Subjective Date of Service: 09/09/20 Reason For Visit: SI Interim History: Patient lying in bed clean shaven. Patient said that he is ?pretty good? though he still says he is feeling depressed. He denies any SI any denies any auditory hallucinations. He reports he remains eating and sleeping better and that he did go to a group today. His anxiety has also improved. Patient is unable to articulate much about his depression other than to say it remains. Clinical Support Manager inquired some about his history and he says he has had depression his whole life and it has been a long time since it was under control. He thinks that this is 1 of the worst bouts of depression he has had. He said it did get worse few months ago but has no idea why despite multiple attempts to engage on this topic. Clinical Support Manager also broached the topic of historical reports of psychotic symptoms. He denies any history of auditory or visual hallucinations, however he says that he does not like crowds... People's movement... I do not know why. ? Clinical Support Manager tried to clarify further but patient repeated I do not know. ? Patient would like to leave the Zoloft at 75 mg for now. He agreed however to try to go to 2 groups a day starting this . Mental Status Exam Mental Status Exam Narrative: ?Pt is alert and oriented; behavior is semi-cooperative and difficult to engage, given only 2-3 word answers to most questions; dressed in hospital gown however, improved hygiene and clean shaven; mood is described is depressed and affect congruent, blank; remains with poor eye contact; Speech is normal rate, volume and prosody and not pressured but limited to few words; some psychomotor retardation present; thought process is organized and goal directed, but difficult to fully assess since says few words. Thought content somewhat vacuous, but denies SI or HI and is pertinent to relevant topics and without any delusional content, paranoid ideations or grandiosity; as mentioned, denies any SI/HI. There is no evidence of perceptual disturbance.? Patients insight and judgment are impaired. Diagnostics Vital Signs (24Hr): Vital Signs - 24 hr 09/08/20 18:00 09/09/20 06:26 Temperature 97.7 F 97.2 F Pulse Rate 108 H 108 H Respiratory Rate 18 Blood Pressure 112/70 126/65 Pulse Oximetry 99 98 Body Mass Index 22.2 Labs Results: 09/03/20 16:21 09/03/20 16:21 Imaging Radiology Impressions: ITS Impressions Chest X-Ray 09/03/20 19:14 IMPRESSION: No radiographic evidence of acute cardiopulmonary disease. Medications Medications Current Medications Generic Name Dose Route Start Last Admin Trade Name Freq PRN Reason Stop Dose Admin Acetaminophen 650 mg 09/04/20 02:25 Acetaminophen 325 Mg Tablet PO Q6H PRN Headache/Pain Mild Scale (1-3) Al Hydroxide/Mg Hydroxide 30 ml 09/04/20 02:25 Magnesium Hydrox/Alum Hydrox 30 Ml Oral.Susp PO Q6H PRN Heartburn/Nausea Aripiprazole 30 mg 09/04/20 21:00 09/08/20 20:46 Aripiprazole 30 Mg Tablet PO 30 mg BEDTIME CANDY Administration Hydroxyzine HCl 25 mg 09/04/20 02:25 Hydroxyzine Hcl 25 Mg Tablet PO BEDTIME PRN Anxiety Magnesium Hydroxide 30 ml 09/04/20 02:25 Milk Of Magnesia 30 Ml Oral.Susp PO DAILY PRN Constipation Mirtazapine 45 mg 09/04/20 21:00 09/08/20 20:46 Mirtazapine 15 Mg Tablet PO 45 mg BEDTIME CANDY Administration Pharmacy Consult 1 each 09/03/20 15:54 Consult Rx Perform Med Rec MISCELLANE ONCE PRN Consult order Sertraline HCl 75 mg 09/09/20 09:00 09/09/20 08:11 Sertraline Hcl 25 Mg Tablet PO 75 mg DAILY CANDY Administration Allergies Allergies Allergy/AdvReac Type Severity Reaction Status Date / Time bee pollen [BEE STINGS] Allergy Unknown ARM Verified 02/03/20 00:43 SWELLING codeine [CODEINE] Allergy Unknown HIVES, Verified 02/03/20 00:43 NAUSEA bee stings Allergy Unknown Swelling Uncoded 02/03/20 00:43 Assessment & Plan Assessment & Plan (1) Major depression, recurrent, chronic: Status: Acute Code(s): F33.9 - Major depressive disorder, recurrent, unspecified Assessment and Plan: IMPRESSION: 69-year-old male with a past medical history of hepatitis-C, hypertension, depression, polysubstance abuse, seizures, presenting for severe depression, Patient denies SI; continued on home med of Abilify, increased Remeron and added Zoloft. Will continue to monitor Currently, pt should remain on inpt unit for continued stabilization and med management as he's still depressed; Barrier to patient being treated as an outpatient is his continued depression interfering with attending to daily life activities including eating PLAN: continue abilify 30 mg Qhs. pt reportedly has a h/o psychosis; also perhaps useful as adjunctive anti-depressant. continue HS remeron to 45 mg (increased on 09/04 for insomnia and depression). zoloft increased to 75mg (started on 09/09) anxiety and depression. tapered and dc'd gabapentin mil[facility] therapy; helping pt to go to grous . Greater than 50% of the session was spent on counseling and/or coordination of care Reason for contiued inpatient stay Substantial Risk for: rapid decompensation
[2020-09-09 18:00] VITALS: BP 94/55; PULSE 95; RESP 16; TEMP 36.3; O2SAT 98
[2020-09-09] MEDS: Mirtazapine 15 MG TABLET 45 MG PO (20:43)
[2020-09-09] MEDS: ARIPiprazole 30 MG TABLET PO (20:43)
[2020-09-10 06:40] VITALS: BP 96/63; PULSE 111; TEMP 36.2; O2SAT 97
[2020-09-10] MEDS: Sertraline HCL 25 MG TABLET 75 MG PO (08:10)
--- NOTE | 2020-09-10 13:35 | PC.NURSE ---
Pt participated in [facility] screen on this date, scored 21/30, indicating cognition is below normal limits. Nurse and MD made aware of results.
--- NOTE | 2020-09-10 16:15 | P.PNPSI_ITS ---
Subjective Subjective Date of Service: 09/10/20 Reason For Visit: SI Interim History: Patient with brighter affect on approach; lying in bed with sheets pulled up to his neck, but more spontaneous speech. Patient says he is pretty good and shares that he went to group which he says was pretty good also. He continues to report eating and sleeping well and denies any SI. He says his depression and anxiety are both a little better, but he does not feel that they have resolved enough to go home. He does however say that he feels he is headed in the right direction. Gypsum Roofer asked again if he was willing to try to go to 2 groups a day starting on which he said he will consider. Though more talkative with more spontaneous speech, patient still somewhat difficult to engage. Gypsum Roofer asked OT to do [facility] which patient scored 21/30. Mental Status Exam Mental Status Exam Narrative: ?Pt is alert and oriented; behavior is cooperative, talking more spontaneously; dressed in hospital gown, adequate hygiene and clean shaven; mood is described is pretty good but also depressed; affect is brighter; eye contact is adequate and improved; Speech is more spontaneous, normal rate, volume and prosody and not pressured; some psychomotor retardation present; thought process is organized and goal directed; Thought content somewhat vacuous, mostly discussing treatment topics; denies SI or HI and is pertinent to relevant topics and without any delusional content, paranoid ideations or grandiosity; as mentioned, denies any SI/HI. There is no evidence of perceptual disturbance.? Patients insight and judgment are impaired. Diagnostics Vital Signs (24Hr): Vital Signs - 24 hr 09/09/20 18:00 09/10/20 06:40 Temperature 97.4 F 97.2 F Pulse Rate 95 111 H Respiratory Rate 16 Blood Pressure 94/55 L 96/63 Pulse Oximetry 98 97 Body Mass Index 22.2 Labs Results: 09/03/20 16:21 09/03/20 16:21 Imaging Radiology Impressions: ITS Impressions Chest X-Ray 09/03/20 19:14 IMPRESSION: No radiographic evidence of acute cardiopulmonary disease. Medications Medications Current Medications Generic Name Dose Route Start Last Admin Trade Name Freq PRN Reason Stop Dose Admin Acetaminophen 650 mg 09/04/20 02:25 Acetaminophen 325 Mg Tablet PO Q6H PRN Headache/Pain Mild Scale (1-3) Al Hydroxide/Mg Hydroxide 30 ml 09/04/20 02:25 Magnesium Hydrox/Alum Hydrox 30 Ml Oral.Susp PO Q6H PRN Heartburn/Nausea Aripiprazole 30 mg 09/04/20 21:00 09/09/20 20:43 Aripiprazole 30 Mg Tablet PO 30 mg BEDTIME CANDY Administration Hydroxyzine HCl 25 mg 09/04/20 02:25 Hydroxyzine Hcl 25 Mg Tablet PO BEDTIME PRN Anxiety Magnesium Hydroxide 30 ml 09/04/20 02:25 Milk Of Magnesia 30 Ml Oral.Susp PO DAILY PRN Constipation Mirtazapine 45 mg 09/04/20 21:00 09/09/20 20:43 Mirtazapine 15 Mg Tablet PO 45 mg BEDTIME CANDY Administration Pharmacy Consult 1 each 09/03/20 15:54 Consult Rx Perform Med Rec MISCELLANE ONCE PRN Consult order Sertraline HCl 75 mg 09/09/20 09:00 09/10/20 08:10 Sertraline Hcl 25 Mg Tablet PO 75 mg DAILY CANDY Administration Allergies Allergies Allergy/AdvReac Type Severity Reaction Status Date / Time bee pollen [BEE STINGS] Allergy Unknown ARM Verified 02/03/20 00:43 SWELLING codeine [CODEINE] Allergy Unknown HIVES, Verified 02/03/20 00:43 NAUSEA bee stings Allergy Unknown Swelling Uncoded 02/03/20 00:43 Assessment & Plan Assessment & Plan (1) Major depression, recurrent, chronic: Status: Acute Code(s): F33.9 - Major depressive disorder, recurrent, unspecified Assessment and Plan: IMPRESSION: 69-year-old male with a past medical history of hepatitis-C, hypertension, depression, polysubstance abuse, seizures, presenting for severe depression, Patient denies SI; continued on home med of Abilify, increased Remeron and added Zoloft. Will continue to monitor Currently, pt should remain on inpt unit for continued stabilization and med management as he's still depressed; Barrier to patient being treated as an outpatient is his continued depression interfering with attending to daily life activities including eating PLAN: continue abilify 30 mg Qhs. pt reportedly has a h/o psychosis; also perhaps useful as adjunctive anti-depressant. continue HS remeron to 45 mg (increased on 09/04 for insomnia and depression). zoloft increased to 75mg (started on 09/09) anxiety and depression. tapered and dc'd gabapentin milue therapy; helping pt to go to [facility] . Greater than 50% of the session was spent on counseling and/or coordination of care Reason for contiued inpatient stay Substantial Risk for: rapid decompensation
[2020-09-10 18:00] VITALS: BP 102/70; PULSE 112; RESP 16; TEMP 36.6; O2SAT 98
[2020-09-10] MEDS: ARIPiprazole 30 MG TABLET PO (20:56)
[2020-09-10] MEDS: Mirtazapine 15 MG TABLET 45 MG PO (20:56)
[2020-09-11 06:23] VITALS: BP 92/59; PULSE 185; RESP 16; TEMP 36.4; O2SAT 93
[2020-09-11 07:00] VITALS: BMI 21.6
[2020-09-11] MEDS: Sertraline HCL 25 MG TABLET 75 MG PO (08:44)
--- NOTE | 2020-09-11 15:33 | P.PNPSI_ITS ---
Subjective Subjective Date of Service: 09/11/20 Reason For Visit: SI Interim History: Patient lying in bed. He says he has ?good? and went to a group, and said he would have gone to the 2nd group but his name was not called. He agrees to make more effort for Tuesday. He says depression and anxiety are both at a 5/10. He continues to deny SI and says he sleeping and eating well. Wants to leave Zoloft at 75 for now but is open to further titration. Speech more spontaneous, with brighter affect however conversation mostly remains at the yes and no level Mental Status Exam Mental Status Exam Narrative: Pt is alert and oriented; behavior is cooperative, talking more spontaneously; dressed in hospital gown, adequate hygiene and clean shaven; mood is described is good but also depressed; ? affect is brighter; eye contact is adequate and improved; Speech is more spontaneous, normal rate, volume and prosody and not pressured; some psychomotor retardation present; thought process is organized and goal directed; Thought content somewhat vacuous, mostly discussing treatment topics;? denies SI or HI and is pertinent to relevant topics and without any delusional content, paranoid ideations or grandiosity; as mentioned, denies any SI/HI. There is no evidence of perceptual disturbance.? Patients insight and judgment are impaired but improving. Diagnostics Vital Signs (24Hr): Vital Signs - 24 hr 09/10/20 18:00 09/11/20 06:23 Temperature 97.9 F 97.5 F Pulse Rate 112 H 185 H Respiratory Rate 16 16 Blood Pressure 102/70 92/59 L Pulse Oximetry 98 93 Body Mass Index 21.6 Labs Results: 09/03/20 16:21 09/03/20 16:21 Imaging Radiology Impressions: ITS Impressions Chest X-Ray 09/03/20 19:14 IMPRESSION: No radiographic evidence of acute cardiopulmonary disease. Medications Medications Current Medications Generic Name Dose Route Start Last Admin Trade Name Freq PRN Reason Stop Dose Admin Acetaminophen 650 mg 09/04/20 02:25 Acetaminophen 325 Mg Tablet PO Q6H PRN Headache/Pain Mild Scale (1-3) Al Hydroxide/Mg Hydroxide 30 ml 09/04/20 02:25 Magnesium Hydrox/Alum Hydrox 30 Ml Oral.Susp PO Q6H PRN Heartburn/Nausea Aripiprazole 30 mg 09/04/20 21:00 09/10/20 20:56 Aripiprazole 30 Mg Tablet PO 30 mg BEDTIME CANDY Administration Hydroxyzine HCl 25 mg 09/04/20 02:25 Hydroxyzine Hcl 25 Mg Tablet PO BEDTIME PRN Anxiety Magnesium Hydroxide 30 ml 09/04/20 02:25 Milk Of Magnesia 30 Ml Oral.Susp PO DAILY PRN Constipation Mirtazapine 45 mg 09/04/20 21:00 09/10/20 20:56 Mirtazapine 15 Mg Tablet PO 45 mg BEDTIME CANDY Administration Pharmacy Consult 1 each 09/03/20 15:54 Consult Rx Perform Med Rec MISCELLANE ONCE PRN Consult order Sertraline HCl 75 mg 09/09/20 09:00 09/11/20 08:44 Sertraline Hcl 25 Mg Tablet PO 75 mg DAILY CANDY Administration Allergies Allergies Allergy/AdvReac Type Severity Reaction Status Date / Time bee pollen [BEE STINGS] Allergy Unknown ARM Verified 02/03/20 00:43 SWELLING codeine [CODEINE] Allergy Unknown HIVES, Verified 02/03/20 00:43 NAUSEA bee stings Allergy Unknown Swelling Uncoded 02/03/20 00:43 Assessment & Plan Assessment & Plan (1) Major depression, recurrent, chronic: Status: Acute Code(s): F33.9 - Major depressive disorder, recurrent, unspecified Assessment and Plan: IMPRESSION: 69-year-old male with a past medical history of hepatitis-C, hypertension, depression, polysubstance abuse, seizures, presenting for severe depression, Patient denies SI; continued on home med of Abilify, increased Remeron and added Zoloft. Will continue to monitor Currently, pt should remain on inpt unit for continued stabilization and med management as he's still depressed; Barrier to patient being treated as an outpatient is his continued depression interfering with attending to daily life activities including eating PLAN: continue abilify 30 mg Qhs. pt reportedly has a h/o psychosis; also perhaps use ful as adjunctive anti-depressant. continue HS remeron to 45 mg (increased on 09/04 for insomnia and depression). zoloft increased to 75mg (started on 09/09) anxiety and depression. tapered and dc'd gabapentin milue therapy; helping pt to go to grous . Greater than 50% of the session was spent on counseling and/or coordination of care Reason for contiued inpatient stay Substantial Risk for: rapid decompensation
[2020-09-11 18:00] VITALS: BP 87/54; PULSE 111; RESP 16; TEMP 36.2; O2SAT 97
[2020-09-11] MEDS: Mirtazapine 15 MG TABLET 45 MG PO (20:48)
[2020-09-11] MEDS: ARIPiprazole 30 MG TABLET PO (20:49)
[2020-09-12 06:10] VITALS: BP 95/57; PULSE 87; RESP 16; TEMP 36.3; O2SAT 99
[2020-09-12] MEDS: Sertraline HCL 25 MG TABLET 75 MG PO (08:41)
[2020-09-12] MEDS: Sertraline HCL 25 MG TABLET PO (10:42)
[2020-09-12 17:19] VITALS: BP 99/58; PULSE 89; RESP 16; TEMP 36.4; O2SAT 99
--- NOTE | 2020-09-12 17:44 | HO.PSYCHPN ---
Subjective Subjective Date of Service: 09/12/20 Reason For Visit: SI Interim History: Patient ins about exactly the same as yesterday with no changes. He does agree to increase Zoloft to 100 mg for her is ongoing depression and anxiety. Patient does say he will try to go to more than 1 group today. No complaints and no requests. Mental Status Exam Mental Status Exam Narrative: ?Pt is alert and oriented; behavior is cooperative, talking more spontaneously; dressed in hospital gown, adequate hygiene and clean shaven; mood is described is good but also depressed; ? affect is brighter; eye contact is adequate and improved; Speech is more spontaneous, normal rate, volume and prosody and not pressured; some psychomotor retardation present; thought process is organized and goal directed; Thought content somewhat vacuous, mostly discussing treatment topics;? denies SI or HI and is pertinent to relevant topics and without any delusional content, paranoid ideations or grandiosity; as mentioned, denies any SI/HI. There is no evidence of perceptual disturbance.? Patients insight and judgment are fair. Diagnostics Vital Signs (24Hr): Vital Signs - 24 hr 09/11/20 18:00 09/12/20 06:10 09/12/20 17:19 Temperature 97.2 F 97.4 F 97.5 F Pulse Rate 111 H 87 89 Respiratory Rate 16 16 16 Blood Pressure 87/54 L 95/57 L 99/58 L Pulse Oximetry 97 99 99 Body Mass Index 21.6 Labs Results: 09/03/20 16:21 09/03/20 16:21 Imaging Radiology Impressions: ITS Impressions Chest X-Ray 09/03/20 19:14 IMPRESSION: No radiographic evidence of acute cardiopulmonary disease. Medications Medications Current Medications Generic Name Dose Route Start Last Admin Trade Name Freq PRN Reason Stop Dose Admin Acetaminophen 650 mg 09/04/20 02:25 Acetaminophen 325 Mg Tablet PO Q6H PRN Headache/Pain Mild Scale (1-3) Al Hydroxide/Mg Hydroxide 30 ml 09/04/20 02:25 Magnesium Hydrox/Alum Hydrox 30 Ml Oral.Susp PO Q6H PRN Heartburn/Nausea Aripiprazole 30 mg 09/04/20 21:00 09/11/20 20:49 Aripiprazole 30 Mg Tablet PO 30 mg BEDTIME CANDY Administration Hydroxyzine HCl 25 mg 09/04/20 02:25 Hydroxyzine Hcl 25 Mg Tablet PO BEDTIME PRN Anxiety Magnesium Hydroxide 30 ml 09/04/20 02:25 Milk Of Magnesia 30 Ml Oral.Susp PO DAILY PRN Constipation Mirtazapine 45 mg 09/04/20 21:00 09/11/20 20:48 Mirtazapine 15 Mg Tablet PO 45 mg BEDTIME [facility] Administration Pharmacy Consult 1 each 09/03/20 15:54 Consult Rx Perform Med Rec MISCELLANE ONCE PRN Consult order Sertraline HCl 100 mg 09/13/20 09:00 Sertraline Hcl 50 Mg Tablet PO DAILY CANDY Allergies Allergies Allergy/AdvReac Type Severity Reaction Status Date / Time bee pollen [BEE STINGS] Allergy Unknown ARM Verified 02/03/20 00:43 SWELLING codeine [CODEINE] Allergy Unknown HIVES, Verified 02/03/20 00:43 NAUSEA bee stings Allergy Unknown Swelling Uncoded 02/03/20 00:43 Assessment & Plan Assessment & Plan (1) Major depression, recurrent, chronic: Status: Acute Code(s): F33.9 - Major depressive disorder, recurrent, unspecified Assessment and Plan: IMPRESSION: 69-year-old male with a past medical history of hepatitis-C, hypertension, depression, polysubstance abuse, seizures, presenting for severe depression, Patient denies SI; continued on home med of Abilify, increased Remeron and added Zoloft. Will continue to monitor Currently, pt should remain on inpt unit for continued stabilization and med management as he's still depressed; Barrier to patient being treated as an outpatient is his continued depression interfering with attending to daily life activities including eating; however, depression and anxiety are improving PLAN: continue abilify 30 mg Qhs. pt reportedly has a h/o psychosis; also perhaps useful as adjunctive anti-depressant. continue HS remeron to 45 mg (increased on 09/04 for insomnia and depression). zoloft increased to 100mg for anxiety and depression. tapered and dc'd gabapentin milue therapy; helping pt to go to [facility] . Greater than 50% of the session was spent on counseling and/or coordination of care Reason for contiued inpatient stay Substantial Risk for: rapid decompensation
[2020-09-12] MEDS: Mirtazapine 15 MG TABLET 45 MG PO (20:23)
[2020-09-12] MEDS: ARIPiprazole 30 MG TABLET PO (20:23)
[2020-09-13 06:00] VITALS: BP 93/65; PULSE 90; RESP 18; TEMP 36.1; O2SAT 100
[2020-09-13] MEDS: Sertraline HCL 50 MG TABLET 100 MG PO (09:40)
--- NOTE | 2020-09-13 14:46 | P.PNPSI_ITS ---
Subjective Subjective Date of Service: 09/13/20 Reason For Visit: SI Subjective Notes: Conditional Voluntary Interim History: No complaints and no requests. Medication Compliance: Yes Side effects from medications: No Attending Groups: No Review of Systems Acute medical concerns: No Medical Review of Systems: unchanged Review of Systems Review of Systems Unremarkable Yes all other systems are reviewed and are negative Psychiatric: Reports no additional psychiatric complaints and Reports depression Mental Status Exam Mental Status Exam Narrative: ?Pt is alert and oriented; behavior is cooperative, talking more spo ntaneously; dressed in hospital gown, adequate hygiene and clean shaven; mood is described is good but also depressed; ? affect is brighter; eye contact is adequate and improved; Speech is more spontaneous, normal rate, volume and prosody and not pressured; some psychomotor retardation present; thought process is organized and goal directed; Thought content somewhat vacuous, mostly discussing treatment topics;? denies SI or HI and is pertinent to relevant topics and without any delusional content, paranoid ideations or grandiosity; as mentioned, denies any SI/HI. There is no evidence of perceptual disturbance.? Patients insight and judgment are fair. Thought Content: negative for Suicidal Ideation or negative for Homicidal Ideation Diagnostics Vital Signs (24Hr): Vital Signs - 24 hr 09/12/20 17:19 09/13/20 06:00 Temperature 97.5 F 96.9 F Pulse Rate 89 90 Respiratory Rate 16 18 Blood Pressure 99/58 L 93/65 Pulse Oximetry 99 100 Body Mass Index 21.6 Labs Results: 09/03/20 16:21 09/03/20 16:21 Imaging Radiology Impressions: ITS Impressions Chest X-Ray 09/03/20 19:14 IMPRESSION: No radiographic evidence of acute cardiopulmonary disease. Medications Medications Current Medications Generic Name Dose Route Start Last Admin Trade Name Freq PRN Reason Stop Dose Admin Acetaminophen 650 mg 09/04/20 02:25 Acetaminophen 325 Mg Tablet PO Q6H PRN Headache/Pain Mild Scale (1-3) Al Hydroxide/Mg Hydroxide 30 ml 09/04/20 02:25 Magnesium Hydrox/Alum Hydrox 30 Ml Oral.Susp PO Q6H PRN Heartburn/Nausea Aripiprazole 30 mg 09/04/20 21:00 09/12/20 20:23 Aripiprazole 30 Mg Tablet PO 30 mg BEDTIME CANDY Administration Hydroxyzine HCl 25 mg 09/04/20 02:25 Hydroxyzine Hcl 25 Mg Tablet PO BEDTIME PRN Anxiety Magnesium Hydroxide 30 ml 09/04/20 02:25 Milk Of Magnesia 30 Ml Oral.Susp PO DAILY PRN Constipation Mirtazapine 45 mg 09/04/20 21:00 09/12/20 20:23 Mirtazapine 15 Mg Tablet PO 45 mg BEDTIME CANDY Administration Pharmacy Consult 1 each 09/03/20 15:54 Consult Rx Perform Med Rec MISCELLANE ONCE PRN Consult order Sertraline HCl 100 mg 09/13/20 09:00 09/13/20 09:40 Sertraline Hcl 50 Mg Tablet PO 100 mg DAILY CANDY Administration Allergies Allergies Allergy/AdvReac Type Severity Reaction Status Date / Time bee pollen [BEE STINGS] Allergy Unknown ARM Verified 02/03/20 00:43 SWELLING codeine [CODEINE] Allergy Unknown HIVES, Verified 02/03/20 00:43 NAUSEA bee stings Allergy Unknown Swelling Uncoded 02/03/20 00:43 Assessment & Plan Assessment & Plan (1) Major depression, recurrent, chronic: Status: Acute Code(s): F33.9 - Major depressive disorder, recurrent, unspecified Assessment and Plan: IMPRESSION: 69-year-old male with a past medical history of hepatitis-C, hypertension, depression, polysubstance abuse, seizures, presenting for severe depression, Patient denies SI; continued on home med of Abilify, increased Remeron and added Zoloft. Will continue to monitor Currently, pt should remain on inpt unit for continued stabilization and med management as he's still depressed; Barrier to patient being treated as an outpatient is his continued depression interfering with attending to daily life activities including eating; however, depression and anxiety are improving PLAN: continue abilify 30 mg Qhs. pt reportedly has a h/o psychosis; also perhaps useful as adjunctive anti-depressant. continue HS remeron to 45 mg (increased on 09/04 for insomnia and depression). zoloft increased to 100mg for anxiety and depression. tapered and dc'd gabapentin milue therapy; helping pt to go to groups . Assessment and Plan: No change to the above plan Greater than 50% of the session was spent on counseling and/or coordination of care Patient educated on: diagnosis and medication risk/benefits Informed Consent: further education needed Reason for contiued inpatient stay Substantial Risk for: rapid decompensation
[2020-09-13 16:18] VITALS: BP 93/55; PULSE 93; RESP 18; TEMP 36.3; O2SAT 97
[2020-09-13] MEDS: Mirtazapine 15 MG TABLET 45 MG PO (21:01)
[2020-09-13] MEDS: ARIPiprazole 30 MG TABLET PO (21:01)
[2020-09-14 06:00] VITALS: BP 119/76; PULSE 111; RESP 18; TEMP 37; O2SAT 98
[2020-09-14] MEDS: Sertraline HCL 50 MG TABLET 100 MG PO (08:55)
--- NOTE | 2020-09-14 16:31 | HO.PSYCHPN ---
Subjective Subjective Date of Service: 09/14/20 Reason For Visit: SI Subjective Notes: Conditional Voluntary Interim History: No complaints and no requests. Medication Compliance: Yes Side effects from medications: No Review of Systems Acute medical concerns: No Medical Review of Systems: unchanged Review of Systems Review of Systems Unremarkable Yes all other systems are reviewed and are negative Psychiatric: Reports no additional psychiatric complaints and Reports depression Mental Status Exam Mental Status Exam Narrative: ?Pt is alert and oriented; behavior is cooperative, talking more spontaneously; dressed in hospital gown, adequate hygiene and clean shaven; mood is described is good but also depressed; ? affect is brighter; eye contact is adequate and improved; Speech is more spontaneous, normal rate, volume and prosody and not pressured; some psychomotor retardation present; thought process is organized and goal directed; Thought content somewhat vacuous, mostly discussing treatment topics;? denies SI or HI and is pertinent to relevant topics and without any delusional content, paranoid ideations or grandiosity; as mentioned, denies any SI/HI. There is no evidence of perceptual disturbance.? Patients insight and judgment are fair. Diagnostics Vital Signs (24Hr): Vital Signs - 24 hr 09/14/20 06:00 Temperature 98.6 F Pulse Rate 111 H Respiratory Rate 18 Blood Pressure 119/76 Pulse Oximetry 98 Body Mass Index 21.6 Labs Results: 09/03/20 16:21 09/03/20 16:21 Imaging Radiology Impressions: ITS Impressions Chest X-Ray 09/03/20 19:14 IMPRESSION: No radiographic evidence of acute cardiopulmonary disease. Medications Medications Current Medications Generic Name Dose Route Start Last Admin Trade Name Freq PRN Reason Stop Dose Admin Acetaminophen 650 mg 09/04/20 02:25 Acetaminophen 325 Mg Tablet PO Q6H PRN Headache/Pain Mild Scale (1-3) Al Hydroxide/Mg Hydroxide 30 ml 09/04/20 02:25 Magnesium Hydrox/Alum Hydrox 30 Ml Oral.Susp PO Q6H PRN Heartburn/Nausea Aripiprazole 30 mg 09/04/20 21:00 09/13/20 21:01 Aripiprazole 30 Mg Tablet PO 30 mg BEDTIME CANDY Administration Hydroxyzine HCl 25 mg 09/14/20 10:51 Hydroxyzine Hcl 25 Mg Tablet PO Q6H PRN Anxiety Magnesium Hydroxide 30 ml 09/04/20 02:25 Milk Of Magnesia 30 Ml Oral.Susp PO DAILY PRN Constipation Mirtazapine 45 mg 09/04/20 21:00 09/13/20 21:01 Mirtazapine 15 Mg Tablet PO 45 mg BEDTIME CANDY Administration Pharmacy Consult 1 each 09/03/20 15:54 Consult Rx Perform Med Rec MISCELLANE ONCE PRN Consult order Sertraline HCl 100 mg 09/13/20 09:00 09/14/20 08:55 Sertraline Hcl 50 Mg Tablet PO 100 mg DAILY CANDY Administration Allergies Allergies Allergy/AdvReac Type Severity Reaction Status Date / Time bee pollen [BEE STINGS] Allergy Unknown ARM Verified 02/03/20 00:43 SWELLING codeine [CODEINE] Allergy Unknown HIVES, Verified 02/03/20 00:43 NAUSEA bee stings Allergy Unknown Swelling Uncoded 02/03/20 00:43 Assessment & Plan Assessment & Plan (1) Major depression, recurrent, chronic: Status: Acute Code(s): F33.9 - Major depressive disorder, recurrent, unspecified Assessment and Plan: IMPRESSION: 69-year-old male with a past medical history of hepatitis-C, hypertension, depression, polysubstance abuse, seizures, presenting for severe depression, Patient denies SI; continued on home med of Abilify, increased Remeron and added Zoloft. Will continue to monitor Currently, pt should remain on inpt unit for continued stabilization and med management as he's still depressed; Barrier to patient being treated as an outpatient is his continued depression interfering with attending to daily life activities including eating; however, depression and anxiety are improving PLAN: continue abilify 30 mg Qhs. pt reportedly has a h/o psychosis; also perhaps useful as adjunctive anti-depressant. continue HS remeron to 45 mg (increased on 09/04 for insomnia and depression). zoloft increased to 100mg for anxiety and depression. tapered and dc'd gabapentin milue therapy; helping pt to go to groups . Assessment and Plan: No change to the above plan Greater than 50% of the session was spent on counseling and/or coordination of care Patient educated on: diagnosis and medication risk/benefits Informed Consent: further education needed Reason for contiued inpatient stay Substantial Risk for: rapid decompensation
[2020-09-14 17:02] VITALS: BP 121/63; PULSE 84; RESP 16; TEMP 36.8; O2SAT 98
[2020-09-14] MEDS: Mirtazapine 15 MG TABLET 45 MG PO (20:33)
[2020-09-14] MEDS: ARIPiprazole 30 MG TABLET PO (20:33)
[2020-09-15 06:00] VITALS: BP 123/73; PULSE 102; RESP 16; TEMP 36.5; O2SAT 99
[2020-09-15] MEDS: Sertraline HCL 50 MG TABLET 100 MG PO (08:45)
[2020-09-15 12:42] LABS: MANUAL DIFF FLAG NO
[2020-09-15 12:47] LABS: Basophils Percent Auto 0.7 % (0-2); Eosinophils Absolute Auto 0.1 X10*3/uL (0.0-0.4); Eosinophils Percent Auto 2.2 % (0-4); Hematocrit 44.6 % (42-52); Hemoglobin 13.7 g/dl (14.0-18.0); Imm Gran Abs Auto 0.01 X10*3/uL (0.00-0.03); Imm Gran Pct Auto 0.2 % (0.0-0.4); Lymphocytes Absolute Auto 1.7 X10*3/uL (1.2-4.9); Lymphocytes Percent Auto 29.7 % (20-40); Mean Corpuscular HGB Conc 30.7 g/dl (31.0-36.0); Mean Corpuscular Hemoglobin 27.2 pg (27.0-33.0); Mean Corpuscular Volume 88.7 fL (80-98); Mean Platelet Volume 10.9 fL (9.4-12.4); Monocytes Absolute Auto 0.7 X10*3/uL (0.1-1.2); Monocytes Percent Auto 12.8 % (2-11); Neutrophils Percent Auto 54.4 % (45-73); Platelet Count 268 X10*3/uL (160-400); Red Blood Count 5.03 X10*6/uL (4.60-5.80); Red Cell Distribution Width 14.5 % (11.0-16.0); White Blood Count 5.6 X10*3/uL (4.8-10.8)
[2020-09-15 12:59] LABS: Ammonia 29 umol/L (13-55)
[2020-09-15 13:09] LABS: Anion Gap 12 (12-20); Blood Urea Nitrogen 18 mg/dL (9-16); Carbon Dioxide 32 mmol/L (22-29); Chloride 104 mmol/L (96-108); Creatinine Clr Calc Pharmacy 81.5; Estimated Glomerular Filt Rate > 60; Potassium 4.2 mmol/L (3.3-5.1); Sodium 144 mmol/L (135-145)
[2020-09-15 14:14] LABS: Glucose Urine UA NEG (NEG); Leukocyte Esterase Urine NEG (NEG); Nitrite Urine NEG (NEG); Urine Blood NEG (NEG); Urine Ketones NEG (NEG); Urine Protein TRACE MG/DL (NEG-TRACE)
[2020-09-15 14:18] LABS: Appearance Urine CLEAR; Color Urine YELLOW
[2020-09-15 14:24] LABS: Amorphous Sediment Urine 1+ /LPF; Bacteria Urine TRACE /LPF; RBC Urine 0 /HPF (0); WBC Urine 0-2 /HPF (0-4)
--- NOTE | 2020-09-15 15:51 | HO.PSYCHPN ---
Subjective Subjective Date of Service: 09/15/20 Reason For Visit: SI Interim History: Patient recognized writer technical publications in the hallway and said merna. Staff had some concerns that patient was increasingly confused as he accidentally got into his roommate's bed, talked about seeing [place] while he was here in the shower, talking about how he sleeps at home at night, etc.. Upon approach, patient was alert and oriented to self, name and date, situation, is pretty close to the date (thought it was the end of August rather than realizing today was September 15) and knew that he was in [facility]. He also admitted that he was confused earlier which he says is fairly common for him, even at home. He said that this he is planning to go back to ?[place] ?and live with her which has been the plan thus far. Patient did make some confused statements, referring to that this hospital is crowded, and that the building looks like his home. Steam Train Driver explained that some labs and urine will be collected for monitoring to which patient said he agreed. He overall says that depression is better, anxiety is better, continues to deny any SI or HI and thinks he is mostly back on track. Mental Status Exam Mental Status Exam Narrative: Pt is alert and oriented; behavior is cooperative, talking more spontaneously; dressed in hospital gown, adequate hygiene and clean shaven; mood is described as good; ? affect remains brighter; eye contact is adequate and improved; Speech is more spontaneous, normal rate, volume and prosody and not pressured; no psychomotor retardation or agitation; thought process is goal directed though concrete; Thought content somewhat vacuous, mostly discussing treatment topics but did make some confused statements that seemed delusional; ? denies SI or HI; no paranoid ideations or grandiosity; as mentioned, denies any SI/HI. There is no evidence of perceptual disturbance.? Patients insight and judgment are impaired, but improved. Diagnostics Vital Signs (24Hr): Vital Signs - 24 hr 09/14/20 17:02 09/15/20 06:00 Temperature 98.2 F 97.7 F Pulse Rate 84 102 H Respiratory Rate 16 16 Blood Pressure 121/63 123/73 Pulse Oximetry 98 99 Body Mass Index 21.6 Labs Results: 09/15/20 12:37 09/15/20 12:37 Labs: Laboratory Results - last 48 hr 09/15/20 09/15/20 09/15/20 12:37 12:37 12:37 WBC 5.6 RBC 5.03 Hgb 13.7 L Hct 44.6 MCV 88.7 MCH 27.2 MCHC 30.7 L RDW 14.5 Plt Count 268 MPV 10.9 Immature Gran % (Auto) 0.2 Neut % (Auto) 54.4 Lymph % (Auto) 29.7 [place] % (Auto) 12.8 H Eos % (Auto) 2.2 Baso % (Auto) 0.7 Lymph # (Auto) 1.7 [place] # (Auto) 0.7 Eos # (Auto) 0.1 Baso # (Auto) 0.0 Abs Immat Gran (auto) 0.01 Absolute Neuts (auto) 3.0 Absolute Nucleated RBC 0.000 Nucleated RBC % (auto) 0.0 Sodium 144 Potassium 4.2 Chloride 104 Carbon Dioxide 32 H Anion Gap 12 BUN 18 H Creatinine 0.79 Estim Creat Clear Calc 81.5 Estimated GFR > 60 Ammonia 29 Urine Color Urine Appearance Urine pH Ur Specific Martha Urine Protein Urine Glucose (UA) Urine Ketones Urine Blood Urine Nitrite Ur Leukocyte Esterase Urine RBC Urine WBC Ur Squamous Epith Cells Amorphous Sediment Urine Bacteria 09/15/20 13:54 WBC RBC Hgb Hct MCV MCH MCHC RDW Plt Count MPV Immature Gran % (Auto) Neut % (Auto) Lymph % (Auto) [place] % (Auto) Eos % (Auto) Baso % (Auto) Lymph # (Auto) [place] # (Auto) Eos # (Auto) Baso # (Auto) Abs Immat Gran (auto) Absolute Neuts (auto) Absolute Nucleated RBC Nucleated RBC % (auto) Sodium Potassium Chloride Carbon Dioxide Anion Gap BUN Creatinine Estim Creat Clear Calc Estimated GFR Ammonia Urine Color YELLOW Urine Appearance CLEAR Urine pH 7.0 Ur Specific Martha 1.010 Urine Protein TRACE Urine Glucose (UA) NEG Urine Ketones NEG Urine Blood NEG Urine Nitrite NEG Ur Leukocyte Esterase NEG Urine RBC 0 Urine WBC 0-2 Ur Squamous Epith Cells NONE Amorphous Sediment 1+ Urine Bacteria TRACE Imaging Radiology Impressions: ITS Impressions Chest X-Ray 09/03/20 19:14 IMPRESSION: No radiographic evidence of acute cardiopulmonary disease. Medications Medications Current Medications Generic Name Dose Route Start Last Admin Trade Name Freq PRN Reason Stop Dose Admin Acetaminophen 650 mg 09/04/20 02:25 Acetaminophen 325 Mg Tablet PO Q6H PRN Headache/Pain Mild Scale (1-3) Al Hydroxide/Mg Hydroxide 30 ml 09/04/20 02:25 Magnesium Hydrox/Alum Hydrox 30 Ml Oral.Susp PO Q6H PRN Heartburn/Nausea Aripiprazole 30 mg 09/04/20 21:00 09/14/20 20:33 Aripiprazole 30 Mg Tablet PO 30 mg BEDTIME CANDY Administration Magnesium Hydroxide 30 ml 09/04/20 02:25 Milk Of Magnesia 30 Ml Oral.Susp PO DAILY PRN Constipation Mirtazapine 45 mg 09/04/20 21:00 09/14/20 20:33 Mirtazapine 15 Mg Tablet PO 45 mg BEDTIME CANDY Administration Pharmacy Consult 1 each 09/03/20 15:54 Consult Rx Perform Med Rec MISCELLANE ONCE PRN Consult order Sertraline HCl 100 mg 09/13/20 09:00 09/15/20 08:45 Sertraline Hcl 50 Mg Tablet PO 100 mg DAILY CANDY Administration Allergies Allergies Allergy/AdvReac Type Severity Reaction Status Date / Time bee pollen [BEE STINGS] Allergy Unknown ARM Verified 02/03/20 00:43 SWELLING codeine [CODEINE] Allergy Unknown HIVES, Verified 02/03/20 00:43 NAUSEA bee stings Allergy Unknown Swelling Uncoded 02/03/20 00:43 Assessment & Plan Assessment & Plan (1) Major depression, recurrent, chronic: Status: Acute Code(s): F33.9 - Major depressive disorder, recurrent, unspecified Assessment and Plan: IMPRESSION: 69-year-old male with a past medical history of hepatitis-C, hypertension, depression, polysubstance abuse, seizures, presenting for severe depression, Patient denies SI; continued on home med of Abilify, increased Remeron and added Zoloft. Will continue to monitor Currently, pt should remain on inpt unit for continued stabilization and med management as he's still depressed; Barrier to patient being treated as an outpatient is his continued depression interfering with attending to daily life activities including eating; however, depression and anxiety are improving on 09/15/20 Staff had some concerns that patient was increasingly confused as he accidentally got into his roommate's bed, talked about seeing [place] while he was here in the shower, talking about how he sleeps at home at night, etc.. With writer technical publications, patient was mostly organized, oriented and alert. He said that he was confused earlier today but that it has resolved. He did make some confused comments but said this is common for him. [place], his partner reported to social Work that he does forget what day of the week it is pretty frequently. Patient scored 21/30 on the [place] which is a positive screen for symptoms of dementia. Currently his Vitals are WNL; labs drawn today and CBC, lytes, kidney function within normal limits, ammonia is within normal limits and UA unremarkable. Communicated to nursing staff to encourage fluids though labs do not indicate dehydration. Will continue to monitor to see if cognition worsens, stays the same or resolves. It is quite possible that patient does have some dementia given [place]; it is also possible that since patient is now more up and about, more interactive his baseline which may involve some level of confusion is now more evident. Will continue to monitor as mentioned. Steam Train Driver discussed case with OT who does not recommend further neuropsych eval at this time. It is also possible that Zoloft which was raised on or Tuesday could be potentially contributory, though this is less likely. PLAN: continue abilify 30 mg Qhs. pt reportedly has a h/o psychosis; also perhaps useful as adjunctive anti-depressant. continue HS remeron to 45 mg (increased on 09/04 for insomnia and depression). zoloft increased to 100mg for anxiety and depression. tapered and dc'd gabapentin milue therapy; helping pt to go to groups . Assessment and Plan: No change to the above plan Greater than 50% of the session was spent on counseling and/or coordination of care Reason for contiued inpatient stay Substantial Risk for: med/psych decompensation
[2020-09-15 21:35] VITALS: BP 90/52; PULSE 76; TEMP 36.5
[2020-09-15] MEDS: ARIPiprazole 30 MG TABLET PO (21:40)
[2020-09-15] MEDS: Mirtazapine 15 MG TABLET 45 MG PO (21:40)
[2020-09-16 06:00] VITALS: BP 133/59; PULSE 74; RESP 18; TEMP 35.9; O2SAT 98
[2020-09-16] MEDS: Sertraline HCL 50 MG TABLET 100 MG PO (09:39)
--- NOTE | 2020-09-16 12:44 | P.PNPSI_ITS ---
Subjective Subjective Date of Service: 09/16/20 Reason For Visit: SI Interim History: Patient friendly, with brighter affect confused. Patient did not know where he was, thought it was a school? A place for people help you with your schedule? However he still said OBS when he was told it was a psychiatric hospital. Patient thought internal communications writer was a teacher, but on a 2nd guess said physician. He says he is not not good a could not say why. He reports continued depression and anxiety but denies any SI. Hat Lining Paster explained that patient is more confused recently and that it might have to do with having increased Zoloft. Hat Lining Paster explains that it is best for him to remain on unit until this resolves to which patient says he agrees and thinks internal communications writer. Of note staff felt it necessary to increase safety checks to Q 5 since patient was confused where he was and needing frequent redirection. Mental Status Exam Mental Status Exam Narrative: Pt is alert; he is oriented to self but no place or time or situation; behavior is cooperative, talking more spontaneously but also disorganized; dressed in hospital gown, scruffy but adequate hygiene and clean shaven; mood is described as not so good; ? affect remains brighter; eye contact is adequate and improved; Speech is more spontaneous, normal rate, volume and prosody and not pressured; no psychomotor retardation or agitation; thought process is goal directed though concrete; Thought content somewhat vacuous but is also irrelevant to current situation, making confused statements and intermittently delusional; ? denies SI or HI; no paranoid ideations or grandiosity; as mentioned. There is no evidence of perceptual disturbance.? Patients insight and judgment are impaired. Diagnostics Vital Signs (24Hr): Vital Signs - 24 hr 09/15/20 21:35 09/16/20 06:00 Temperature 97.7 F 96.6 F L Pulse Rate 76 74 Respiratory Rate 18 Blood Pressure 90/52 L 133/59 L Pulse Oximetry 98 Body Mass Index 21.6 Labs Results: 09/15/20 12:37 09/15/20 12:37 Labs: Laboratory Results - last 48 hr 09/15/20 09/15/20 09/15/20 12:37 12:37 12:37 WBC 5.6 RBC 5.03 Hgb 13.7 L Hct 44.6 MCV 88.7 MCH 27.2 MCHC 30.7 L RDW 14.5 Plt Count 268 MPV 10.9 Immature Gran % (Auto) 0.2 Neut % (Auto) 54.4 Lymph % (Auto) 29.7 [place] % (Auto) 12.8 H Eos % (Auto) 2.2 Baso % (Auto) 0.7 Lymph # (Auto) 1.7 [place] # (Auto) 0.7 Eos # (Auto) 0.1 Baso # (Auto) 0.0 Abs Immat Gran (auto) 0.01 Absolute Neuts (auto) 3.0 Absolute Nucleated RBC 0.000 Nucleated RBC % (auto) 0.0 Sodium 144 Potassium 4.2 Chloride 104 Carbon Dioxide 32 H Anion Gap 12 BUN 18 H Creatinine 0.79 Estim Creat Clear Calc 81.5 Estimated GFR > 60 Ammonia 29 Urine Color Urine Appearance Urine pH Ur Specific [place] Urine Protein Urine Glucose (UA) Urine Ketones Urine Blood Urine Nitrite Ur Leukocyte Esterase Urine RBC Urine WBC Ur Squamous Epith Cells Amorphous Sediment Urine Bacteria 09/15/20 13:54 WBC RBC Hgb Hct MCV MCH MCHC RDW Plt Count MPV Immature Gran % (Auto) Neut % (Auto) Lymph % (Auto) [place] % (Auto) Eos % (Auto) Baso % (Auto) Lymph # (Auto) [place] # (Auto) Eos # (Auto) Baso # (Auto) Abs Immat Gran (auto) Absolute Neuts (auto) Absolute Nucleated RBC Nucleated RBC % (auto) Sodium Potassium Chloride Carbon Dioxide Anion Gap BUN Creatinine Estim Creat Clear Calc Estimated GFR Ammonia Urine Color YELLOW Urine Appearance CLEAR Urine pH 7.0 Ur Specific [place] 1.010 Urine Protein TRACE Urine Glucose (UA) NEG Urine Ketones NEG Urine Blood NEG Urine Nitrite NEG Ur Leukocyte Esterase NEG Urine RBC 0 Urine WBC 0-2 Ur Squamous Epith Cells NONE Amorphous Sediment 1+ Urine Bacteria TRACE Imaging Radiology Impressions: ITS Impressions Chest X-Ray 09/03/20 19:14 IMPRESSION: No radiographic evidence of acute cardiopulmonary disease. Medications Medications Current Medications Generic Name Dose Route Start Last Admin Trade Name Freq PRN Reason Stop Dose Admin Acetaminophen 650 mg 09/04/20 02:25 Acetaminophen 325 Mg Tablet PO Q6H PRN Headache/Pain Mild Scale (1-3) Al Hydroxide/Mg Hydroxide 30 ml 09/04/20 02:25 Magnesium Hydrox/Alum Hydrox 30 Ml Oral.Susp PO Q6H PRN Heartburn/Nausea Aripiprazole 30 mg 09/04/20 21:00 09/15/20 21:40 Aripiprazole 30 Mg Tablet PO 30 mg BEDTIME CANDY Administration Magnesium Hydroxide 30 ml 09/04/20 02:25 Milk Of Magnesia 30 Ml Oral.Susp PO DAILY PRN Constipation Mirtazapine 45 mg 09/04/20 21:00 09/15/20 21:40 Mirtazapine 15 Mg Tablet PO 45 mg BEDTIME CANDY Administration Pharmacy Consult 1 each 09/03/20 15:54 Consult Rx Perform Med Rec MISCELLANE ONCE PRN Consult order Sertraline HCl 50 mg 09/18/20 09:00 Sertraline Hcl 50 Mg Tablet PO DAILY CANDY Allergies Allergies Allergy/AdvReac Type Severity Reaction Status Date / Time bee pollen [BEE STINGS] Allergy Unknown ARM Verified 02/03/20 00:43 SWELLING codeine [CODEINE] Allergy Unknown HIVES, Verified 02/03/20 00:43 NAUSEA bee stings Allergy Unknown Swelling Uncoded 02/03/20 00:43 Assessment & Plan Assessment & Plan (1) Major depression, recurrent, chronic: Status: Acute Code(s): F33.9 - Major depressive disorder, recurrent, unspecified Assessment and Plan: . (2) Delirium: Status: Acute Code(s): R41.0 - Disorientation, unspecified Assessment and Plan: (3) Dementia: Status: Acute Code(s): F03.90 - Unspecified dementia without behavioral disturbance Assessment and Plan: IMPRESSION: 69-year-old male with a past medical history of hepatitis-C, hypertension, depression, polysubstance abuse, seizures, presenting for severe depression, Patient denies SI; unclear how much of home medications patient was consistently taking however he was continued on home med of Abilify, increased Remeron and added Zoloft. Hospital course: -Patient began to improve, eating better, sleeping well and depression slowly resolving; no SI -on 09/15/20 -emerging confusion which seems to have correlated with increased Zoloft dose from 75 mg to 100 mg -patient lost orientation to place and situation, thinking he was working, thinking his was here, thinking he was at a school etcetera -labs/vitals within normal limits -case discussed with Dr. Guo, Dr. Rivas (and other psychiatric staff) who agreed that patient has underlying dementia and that even small increase in Zoloft could be enough to tip patient into delirium: Another possible factor was tapering off and discontinuing gabapentin, however patient had been okay during tapering process. Recommended holding off Zoloft and then restarting it at a lower dose to avoid discontinuation syndrome. Currently, pt should remain on inpt unit for continued stabilization and med management as he's still depressed; Barrier to patient being treated as an outpatient is onset of delirium; also his continued depression interfering with attending to daily life activities including eating PLAN: 1. Delirium: Possibly serotonin syndrome as confusion coincided with increased Zoloft -hold Zoloft for 1 day will restart at 50 mg to avoid discontinuation syndrome on 09/18/2020 -encourage hydration -Q 5 safety checks -continue to monitor Confusion started on 09/14 and seemed to coincide with increased dose of Zoloft from 75 to 100 mg Vitals are WNL; CBC, lytes, kidney function within normal limits, ammonia is within normal limits; UA unremarkable. -if does not resolve will consider lowering other medications -autonomically stable making and NMS less likely (WBC wnl); if patient does not improve will check for further labs -will check for either muscle rigidity or hyper flexibility 2. Depression continue abilify 30 mg Qhs. pt reportedly has a h/o psychosis; also perhaps useful as adjunctive anti-depressant. continue HS remeron to 45 mg (increased on 09/04 for insomnia and depression). HOLD zoloft; will restarted 50 mg on 09/18/2020 tapered and dc'd gabapentin milue therapy; helping pt to go to groups 3. Dementia, unspecified: [place]: Though patient's current depression is a possible factor, patient has long history of intermittent substance abuse, severe depression, poor attention to health care, diet; innactive lifestyle; Ronna, his partner reported to social Work that he does forget what day of the week it is pretty frequently Assessment and Plan: No change to the above plan Greater than 50% of the session was spent on counseling and/or coordination of care Reason for contiued inpatient stay Substantial Risk for: med/psych decompensation
[2020-09-16 20:00] VITALS: BP 106/59; PULSE 88; TEMP 37.1
[2020-09-16] MEDS: ARIPiprazole 30 MG TABLET PO (20:33)
[2020-09-16] MEDS: Mirtazapine 15 MG TABLET 45 MG PO (20:33)
[2020-09-17 06:00] VITALS: BP 102/66; PULSE 82; RESP 18; TEMP 36.4; O2SAT 98
[2020-09-17 16:19] VITALS: BP 122/75; PULSE 97; RESP 16; TEMP 37.2; O2SAT 97
[2020-09-17] MEDS: Mirtazapine 15 MG TABLET 45 MG PO (20:31)
[2020-09-17] MEDS: ARIPiprazole 30 MG TABLET PO (20:31)
[2020-09-18 07:00] VITALS: BMI 22.0
[2020-09-18 07:02] VITALS: BP 105/68; PULSE 118; RESP 18; TEMP 35.9; O2SAT 96
[2020-09-18] MEDS: Sertraline HCL 25 MG TABLET PO (08:21)
--- NOTE | 2020-09-18 13:43 | HO.PSYCHPN ---
Subjective Subjective Date of Service: 09/17/20 Reason For Visit: SI Interim History: Patient seen on 09/17 Patient sitting in bed on approach. He is less confused today. Patient knows name, date of , knows the month, day, year and president. When asked where he is he says that he is at a program but says at [facility]. He says he came here for psychiatric help. Industrial Relations Director asked if patient remembered that he was more confused the past few days and he says he does remember but says details are ?kind of foggy. ? On further assessment, patient says he knows that he is not working (while confused he would sometimes tell staff he was working here) and that Ronna is waiting at home for him. Patient denies any SI. He still has depression and anxiety but says he is feeling a little better. Patient says he is eating and sleeping well. Mental Status Exam Mental Status Exam Narrative: Pt is alert; he is oriented to self, place, time and situation; behavior is cooperative, talking more spontaneously; dressed in hospital gown, scruffy and unkempt; mood is described as a little better. ? Affect remains brighter; eye contact is adequate; Speech normal rate, volume and prosody and not pressured; no psychomotor retardation or agitation; thought process is goal directed though concrete; Thought content somewhat vacuous but relevant to current situation; not making confused statements; denies SI or HI; no paranoid ideations or grandiosity; There is no evidence of perceptual disturbance.? Patients insight and judgment are impaired but improving. Diagnostics Vital Signs (24Hr): Vital Signs - 24 hr 09/17/20 16:19 09/18/20 07:02 Temperature 98.9 F 96.7 F L Pulse Rate 97 118 H Respiratory Rate 16 18 Blood Pressure 122/75 105/68 Pulse Oximetry 97 96 Body Mass Index 21.6 Labs Results: 09/15/20 12:37 09/15/20 12:37 Imaging Radiology Impressions: ITS Impressions Chest X-Ray 09/03/20 19:14 IMPRESSION: No radiographic evidence of acute cardiopulmonary disease. Medications Medications Current Medications Generic Name Dose Route Start Last Admin Trade Name Freq PRN Reason Stop Dose Admin Acetaminophen 650 mg 09/04/20 02:25 Acetaminophen 325 Mg Tablet PO Q6H PRN Headache/Pain Mild Scale (1-3) Al Hydroxide/Mg Hydroxide 30 ml 09/04/20 02:25 Magnesium Hydrox/Alum Hydrox 30 Ml Oral.Susp PO Q6H PRN Heartburn/Nausea Aripiprazole 30 mg 09/04/20 21:00 09/17/20 20:31 Aripiprazole 30 Mg Tablet PO 30 mg BEDTIME CANDY Administration Magnesium Hydroxide 30 ml 09/04/20 02:25 Milk Of Magnesia 30 Ml Oral.Susp PO DAILY PRN Constipation Mirtazapine 45 mg 09/04/20 21:00 09/17/20 20:31 Mirtazapine 15 Mg Tablet PO 45 mg BEDTIME CANDY Administration Pharmacy Consult 1 each 09/03/20 15:54 Consult Rx Perform Med Rec MISCELLANE ONCE PRN Consult order Allergies Allergies Allergy/AdvReac Type Severity Reaction Status Date / Time bee pollen [BEE STINGS] Allergy Unknown ARM Verified 02/03/20 00:43 SWELLING codeine [CODEINE] Allergy Unknown HIVES, Verified 02/03/20 00:43 NAUSEA bee stings Allergy Unknown Swelling Uncoded 02/03/20 00:43 Assessment & Plan Assessment & Plan (1) Major depression, recurrent, chronic: Status: Acute Code(s): F33.9 - Major depressive disorder, recurrent, unspecified Assessment and Plan: . (2) Delirium: Status: Acute Code(s): R41.0 - Disorientation, unspecified Assessment and Plan: (3) Dementia: Status: Acute Code(s): F03.90 - Unspecified dementia without behavioral disturbance Assessment and Plan: IMPRESSION: 69-year-old male with a past medical history of hepatitis-C, hypertension, depression, polysubstance abuse, seizures, presenting for severe depression, Patient denies SI; unclear how much of home medications patient was consistently taking however he was continued on home med of Abilify, increased Remeron and added Zoloft. Hospital course: -Patient began to improve, eating better, sleeping well and depression slowly resolving; no SI -on 09/15/20 -emerging confusion which seems to have correlated with increased Zoloft dose from 75 mg to 100 mg -patient lost orientation to place and situation, thinking he was working, thinking his was here, thinking he was at a school etcetera -labs/vitals within normal limits -case discussed with Dr. Guo, Dr. Rivas (and other psychiatric staff) who agreed that patient has underlying dementia and that even small increase in Zoloft could be enough to tip patient into delirium: Another possible factor was tapering off and discontinuing gabapentin, however patient had been okay during tapering process. Recommended holding off Zoloft and then restarting it at a lower dose to avoid discontinuation syndrome. Currently, pt should remain on inpt unit for continued stabilization and med management as he's still depressed; Barrier to patient being treated as an outpatient is onset of delirium; also his continued depression interfering with attending to daily life activities including eating PLAN: 1. Delirium: Appears to be resolving Likely due to mild serotonin syndrome as confusion coincided with increased Zoloft and has seemed to resolve with discontinuation of Zoloft -held Zoloft for 1 day; will give 25 mg on 09/18 to avoid discontinuation syndrome and then discontinue; Ronna, patient's partner reported to social service assistant that he has a history of getting confused Zoloft and Paxil -encourage hydration -Q 5 safety checks -continue to monitor Confusion started on 09/14 and seemed to coincide with increased dose of Zoloft from 75 to 100 mg Vitals are WNL; CBC, lytes, kidney function within normal limits, ammonia is within normal limits; UA unremarkable. -autonomically stable making and NMS less likely (WBC wnl); if patient does not improve will check for further labs -no muscle rigidity or hyper flexibility 2. Depression continue abilify 30 mg Qhs. pt reportedly has a h/o psychosis; also perhaps useful as adjunctive anti-depressant. continue HS remeron to 45 mg (increased on 09/04 for insomnia and depression). Discontinue Zoloft; held for 1 day then plan to give 25 mg to avoid discontinuation syndrome then DC -will consider starting another SSRI tapered and dc'd gabapentin milue therapy; helping pt to go to groups 3. Dementia, unspecified: [place]: Though patient's current depression is a possible factor, patient has long history of intermittent substance abuse, severe depression, poor attention to health care, diet; innactive lifestyle; Ronna, his partner reported to social Work that he does forget what day of the week it is pretty frequently Assessment and Plan: No change to the above plan Greater than 50% of the session was spent on counseling and/or coordination of care Reason for contiued inpatient stay Substantial Risk for: rapid decompensation
[2020-09-18 16:23] VITALS: BP 108/50; PULSE 75; TEMP 36.7
[2020-09-18] MEDS: ARIPiprazole 30 MG TABLET PO (20:39)
[2020-09-18] MEDS: Mirtazapine 15 MG TABLET 45 MG PO (20:39)
[2020-09-19 06:00] VITALS: BP 106/65; PULSE 97; RESP 16; TEMP 36.7; O2SAT 96
--- NOTE | 2020-09-19 10:50 | HO.PSYCHPN ---
Subjective Subjective Date of Service: 09/18/20 Reason For Visit: SI Interim History: Patient seen on 09/18 Patient lying in bed on approach. He was napping but easily aroused. Patient remains oriented to person, date, place and situation. Today is his birthday which he knows, however he did say he turned 69 (instead of 70). Patient says he is ?okay, ? does not feel confused like before, that depression and anxiety remain but he is overall better without any SI, eating and sleeping well. He said that he does not think he is quite ready to go home yet. However, patient says that he does not know how he will be able to assess when he is ready to go home; he thinks Ronna his partner should weigh in. Mental Status Exam Mental Status Exam Narrative: Pt is alert; he is oriented to self, place, time and situation; behavior is cooperative, talking more spontaneously; dressed in hospital gown, scruffy and unkempt; mood is described as OK. ? Affect remains brighter; eye contact is adequate; Speech normal rate, volume and prosody and not pressured; no psychomotor retardation or agitation; thought process is goal directed though concrete; Thought content somewhat vacuous but relevant to?writers questions and current situation; not making confused statements; denies SI or HI; no paranoid ideations or grandiosity; There is no evidence of perceptual disturbance.? Patients insight and judgment improving. Diagnostics Vital Signs (24Hr): Vital Signs - 24 hr 09/18/20 16:23 09/19/20 06:00 Temperature 98.1 F 98.0 F Pulse Rate 75 97 Respiratory Rate 16 Blood Pressure 108/50 L 106/65 Pulse Oximetry 96 Body Mass Index 22.0 Labs Results: 09/15/20 12:37 09/15/20 12:37 Imaging Radiology Impressions: ITS Impressions Chest X-Ray 09/03/20 19:14 IMPRESSION: No radiographic evidence of acute cardiopulmonary disease. Medications Medications Current Medications Generic Name Dose Route Start Last Admin Trade Name Freq PRN Reason Stop Dose Admin Acetaminophen 650 mg 09/04/20 02:25 Acetaminophen 325 Mg Tablet PO Q6H PRN Headache/Pain Mild Scale (1-3) Al Hydroxide/Mg Hydroxide 30 ml 09/04/20 02:25 Magnesium Hydrox/Alum Hydrox 30 Ml Oral.Susp PO Q6H PRN Heartburn/Nausea Aripiprazole 30 mg 09/04/20 21:00 09/18/20 20:39 Aripiprazole 30 Mg Tablet PO 30 mg BEDTIME CANDY Administration Magnesium Hydroxide 30 ml 09/04/20 02:25 Milk Of Magnesia 30 Ml Oral.Susp PO DAILY PRN Constipation Mirtazapine 45 mg 09/04/20 21:00 09/18/20 20:39 Mirtazapine 15 Mg Tablet PO 45 mg BEDTIME CANDY Administration Pharmacy Consult 1 each 09/03/20 15:54 Consult Rx Perform Med Rec MISCELLANE ONCE PRN Consult order Allergies Allergies Allergy/AdvReac Type Severity Reaction Status Date / Time bee pollen [BEE STINGS] Allergy Unknown ARM Verified 02/03/20 00:43 SWELLING codeine [CODEINE] Allergy Unknown HIVES, Verified 02/03/20 00:43 NAUSEA sertraline [From Zoloft] AdvReac Intermediate confusion Unverified 09/18/20 13:52 paroxetine [From Paxil] AdvReac Confusion Unverified 09/18/20 13:53 bee stings Allergy Unknown Swelling Uncoded 02/03/20 00:43 Assessment & Plan Assessment & Plan (1) Major depression, recurrent, chronic: Status: Acute Code(s): F33.9 - Major depressive disorder, recurrent, unspecified Assessment and Plan: . (2) Delirium: Status: Acute Code(s): R41.0 - Disorientation, unspecified Assessment and Plan: (3) Dementia: Status: Acute Code(s): F03.90 - Unspecified dementia without behavioral disturbance Assessment and Plan: IMPRESSION: 69-year-old male with a past medical history of hepatitis-C, hypertension, depression, polysubstance abuse, seizures, presenting for severe depression, Patient denies SI; unclear how much of home medications patient was consistently taking however he was continued on home med of Abilify, increased Remeron and added Zoloft. Hospital course: -Patient began to improve, eating better, sleeping well and depression slowly resolving; no SI -on 09/15/20 -emerging confusion which seems to have correlated with increased Zoloft dose from 75 mg to 100 mg -patient lost orientation to place and situation, thinking he was working, thinking his was here, thinking he was at a school etcetera -labs/vitals within normal limits -case discussed with Dr. Guo, Dr. Rivas (and other psychiatric staff) who agreed that patient has underlying dementia and that even small increase in Zoloft could be enough to tip patient into delirium: Another possible factor was tapering off and discontinuing gabapentin, however patient had been okay during tapering process. Recommended holding off Zoloft and then restarting it at a lower dose to avoid discontinuation syndrome. Delirium seems to be resolving: Depression anxiety remain but patient consistently says they have improved; will discuss with team and patient's partner, Ronna, disposition planning PLAN: 1. Delirium: Appears to be resolving Likely due to mild serotonin syndrome as confusion coincided with increased Zoloft and has seemed to resolve with discontinuation of Zoloft -held Zoloft for 1 day; will give 25 mg on 09/18 to avoid discontinuation syndrome and then discontinue; Ronna, patient's partner reported to social work faculty member that he has a history of getting confused Zoloft and Paxil -encourage hydration -Q 5 safety checks -continue to monitor Confusion started on 09/14 and seemed to coincide with increased dose of Zoloft from 75 to 100 mg Vitals are WNL; CBC, lytes, kidney function within normal limits, ammonia is within normal limits; UA unremarkable. -autonomically stable making and NMS less likely (WBC wnl); if patient does not improve will check for further labs -no muscle rigidity or hyper flexibility 2. Depression continue abilify 30 mg Qhs. pt reportedly has a h/o psychosis; also perhaps useful as adjunctive anti-depressant. continue HS remeron to 45 mg (increased on 09/04 for insomnia and depression). Discontinue Zoloft; held for 1 day then plan to give 25 mg to avoid discontinuation syndrome then DC -will consider starting another SSRI tapered and dc'd gabapentin milue therapy; helping pt to go to groups 3. Dementia, unspecified: [place]: Though patient's current depression is a possible factor, patient has long history of intermittent substance abuse, severe depression, poor attention to health care, diet; innactive lifestyle; Ronna, his partner reported to social Work that he does forget what day of the week it is pretty frequently Assessment and Plan: No change to the above plan Greater than 50% of the session was spent on counseling and/or coordination of care Reason for contiued inpatient stay Substantial Risk for: med/psych decompensation
--- NOTE | 2020-09-19 10:51 | HO.PSYCHPN ---
Subjective Subjective Date of Service: 09/19/20 Reason For Visit: SI Interim History: This sports writer walked in patient set up an said 0h [facility] doctor. ? Patient said that he is feeling better overall. He also volunteered say and that ?I am going to take a shower today. ? He still has depression and anxiety but continues to report no SI, HI and that he is sleeping and eating well; no AVH. Patient is oriented to self, place, time and situation. When asked about when he thinks he will be ready to return home he said ?I do not know? which is a frequent answer for him; patient agreed that it is likely best for his providers and Ronna to discuss and let him know. Mental Status Exam Mental Status Exam Narrative: Pt is alert; he is oriented to self, place, time and situation; behavior is cooperative, talking more spontaneously; dressed in hospital gown, scruffy and unkempt; mood is described as better. ? Affect remains brighter; eye contact is adequate; Speech normal rate, volume and prosody and not pressured; no psychomotor retardation or agitation; thought process is goal directed though concrete; Thought content somewhat vacuous but relevant to?writers questions and current situation; not making confused statements; denies SI or HI; no paranoid ideations or grandiosity; There is no evidence of perceptual disturbance.? Patients insight and judgment improving. Diagnostics Vital Signs (24Hr): Vital Signs - 24 hr 09/18/20 16:23 09/19/20 06:00 Temperature 98.1 F 98.0 F Pulse Rate 75 97 Respiratory Rate 16 Blood Pressure 108/50 L 106/65 Pulse Oximetry 96 Body Mass Index 22.0 Labs Results: 09/15/20 12:37 09/15/20 12:37 Imaging Radiology Impressions: ITS Impressions Chest X-Ray 09/03/20 19:14 IMPRESSION: No radiographic evidence of acute cardiopulmonary disease. Medications Medications Current Medications Generic Name Dose Route Start Last Admin Trade Name Freq PRN Reason Stop Dose Admin Acetaminophen 650 mg 09/04/20 02:25 Acetaminophen 325 Mg Tablet PO Q6H PRN Headache/Pain Mild Scale (1-3) Al Hydroxide/Mg Hydroxide 30 ml 09/04/20 02:25 Magnesium Hydrox/Alum Hydrox 30 Ml Oral.Susp PO Q6H PRN Heartburn/Nausea Aripiprazole 30 mg 09/04/20 21:00 09/18/20 20:39 Aripiprazole 30 Mg Tablet PO 30 mg BEDTIME CANDY Administration Magnesium Hydroxide 30 ml 09/04/20 02:25 Milk Of Magnesia 30 Ml Oral.Susp PO DAILY PRN Constipation Mirtazapine 45 mg 09/04/20 21:00 09/18/20 20:39 Mirtazapine 15 Mg Tablet PO 45 mg BEDTIME CANDY Administration Pharmacy Consult 1 each 09/03/20 15:54 Consult Rx Perform Med Rec MISCELLANE ONCE PRN Consult order Allergies Allergies Allergy/AdvReac Type Severity Reaction Status Date / Time bee pollen [BEE STINGS] Allergy Unknown ARM Verified 02/03/20 00:43 SWELLING codeine [CODEINE] Allergy Unknown HIVES, Verified 02/03/20 00:43 NAUSEA sertraline [From Zoloft] AdvReac Intermediate confusion Unverified 09/18/20 13:52 paroxetine [From Paxil] AdvReac Confusion Unverified 09/18/20 13:53 bee stings Allergy Unknown Swelling Uncoded 02/03/20 00:43 Assessment & Plan Assessment & Plan (1) Major depression, recurrent, chronic: Status: Acute Code(s): F33.9 - Major depressive disorder, recurrent, unspecified Assessment and Plan: . (2) Delirium: Status: Acute Code(s): R41.0 - Disorientation, unspecified Assessment and Plan: (3) Dementia: Status: Acute Code(s): F03.90 - Unspecified dementia without behavioral disturbance Assessment and Plan: IMPRESSION: 69-year-old male with a past medical history of hepatitis-C, hypertension, depression, polysubstance abuse, seizures, presenting for severe depression, Patient denies SI; unclear how much of home medications patient was consistently taking however he was continued on home med of Abilify, increased Remeron and added Zoloft. Hospital course: -Patient began to improve, eating better, sleeping well and depression slowly resolving; no SI -on 09/15/20 -emerging confusion which seems to have correlated with increased Zoloft dose from 75 mg to 100 mg -patient lost orientation to place and situation, thinking he was working, thinking his was here, thinking he was at a school etcetera -labs/vitals within normal limits -case discussed with Dr. Bear CreekDr. Rob campo (and other psychiatric staff) who agreed that patient has underlying dementia and that even small increase in Zoloft could be enough to tip patient into delirium: Another possible factor was tapering off and discontinuing gabapentin, however patient had been okay during tapering process. Recommended holding off Zoloft and then restarting it at a lower dose to avoid discontinuation syndrome. Patient became delirious, likely with a mild case of serotonin syndrome when Zoloft was raised to 100 mg; once Zoloft discontinued, patient's delirium resolved. He remains depressed with anxiety however says both are improved; he continues to say he is eating and sleeping well and denies any SI. Patient is approaching readiness for discharge. Lead Ios Developer discussed with him likely diagnosis of dementia and options for treatment, which patient said at this point he does not want any further medications. Lead Ios Developer considered adding a different SSRI now that Zoloft is discontinued, however patient seems to remain stable. On admission his Remeron was increased to 45 mg and perhaps this is increase is enough of a stabilizing force. PLAN: 1. Delirium: resolved Likely due to mild serotonin syndrome as confusion coincided with increased Zoloft and has seemed to resolve with discontinuation of Zoloft -DC Zoloft: held Zoloft for 1 day; then gave 25 mg on 09/18 to avoid discontinuation syndrome and then discontinue; Ronna, patient's partner reported to rn social work that he has a history of getting confused Zoloft and Paxil -encourage hydration -Q 5 safety checks -continue to monitor Confusion started on 09/14 and seemed to coincide with increased dose of Zoloft from 75 to 100 mg Vitals are WNL; CBC, lytes, kidney function within normal limits, ammonia is within normal limits; UA unremarkable. -autonomically stable making and NMS less likely (WBC wnl); if patient does not improve will check for further labs -no muscle rigidity or hyper flexibility 2. Depression continue abilify 30 mg Qhs. pt reportedly has a h/o psychosis; also perhaps useful as adjunctive anti-depressant. continue HS remeron to 45 mg (increased on 09/04 for insomnia and depression). Discontinue Zoloft; held for 1 day, then gave 25 mg to avoid discontinuation syndrome then DC -will consider starting another SSRI, but hesitate since pt reports feeling overall better tapered and dc'd gabapentin milue therapy; helping pt to go to groups 3. Dementia, unspecified: [place]: Though patient's current depression is a possible factor, patient has long history of intermittent substance abuse, severe depression, poor attention to health care, diet; innactive lifestyle; Ronna, his partner reported to social Work that he does forget what day of the week it is pretty frequently Assessment and Plan: No change to the above plan Greater than 50% of the session was spent on counseling and/or coordination of care Reason for contiued inpatient stay Substantial Risk for: med/psych decompensation
[2020-09-19 16:38] VITALS: BP 117/68; PULSE 51; TEMP 36.5
[2020-09-19] MEDS: Mirtazapine 15 MG TABLET 45 MG PO (21:03)
[2020-09-19] MEDS: ARIPiprazole 30 MG TABLET PO (21:03)
[2020-09-20 06:00] VITALS: BP 113/63; PULSE 72; RESP 18; TEMP 35.7; O2SAT 96
[2020-09-20 16:22] VITALS: BP 103/61; PULSE 94; TEMP 36.8
--- NOTE | 2020-09-20 17:52 | HO.PSYCHPN ---
Subjective Subjective Date of Service: 09/21/20 Reason For Visit: SI Subjective Notes: Conditional Voluntary Interim History: Patient seen and discussed with team. Patient evaluated this morning and upon interview he states he is doing okay. He says his medications are working okay but he continues to present with sx of dementia, he is guarded and difficult to engage in meaningful conversation. Says his sleep is not so good however RN reports he appears to be sleeping well and is excessively sleeping in the day. He is eating, not participating in groups. In the milieu, patient is safe but isolative in behavior. Denies SI/SIB/HI upon inquiry. Denies irritability or assaultive ideation. Says he feels safe. Medication Compliance: Yes Side effects from medications: No Attending Groups: No Review of Systems Medical Review of Systems: unchanged Mental Status Exam Mental Status Exam Narrative: Pt is alert; he is oriented to self, place, time and situation; behavior is cooperative, talking more spontaneously; dressed in hospital gown, scruffy and unkempt; mood is described as okay. ? Affect remains brighter; eye contact is adequate; Speech normal rate, volume and prosody and not pressured; no psychomotor retardation or agitation; thought process is goal directed though concrete; Thought content somewhat vacuous but relevant to?writers questions and current situation; not making confused statements; denies SI or HI; no paranoid ideations or grandiosity; There is no evidence of perceptual disturbance.? Patients insight and judgment improving. Diagnostics Vital Signs (24Hr): Vital Signs - 24 hr 09/20/20 06:00 09/20/20 16:22 Temperature 96.3 F L 98.2 F Pulse Rate 72 94 Respiratory Rate 18 Blood Pressure 113/63 103/61 Pulse Oximetry 96 Body Mass Index 22.0 Labs Results: 09/15/20 12:37 09/15/20 12:37 Imaging Radiology Impressions: ITS Impressions Chest X-Ray 09/03/20 19:14 IMPRESSION: No radiographic evidence of acute cardiopulmonary disease. Medications Medications Current Medications Generic Name Dose Route Start Last Admin Trade Name Freq PRN Reason Stop Dose Admin Acetaminophen 650 mg 09/04/20 02:25 Acetaminophen 325 Mg Tablet PO Q6H PRN Headache/Pain Mild Scale (1-3) Al Hydroxide/Mg Hydroxide 30 ml 09/04/20 02:25 Magnesium Hydrox/Alum Hydrox 30 Ml Oral.Susp PO Q6H PRN Heartburn/Nausea Aripiprazole 30 mg 09/04/20 21:00 09/19/20 21:03 Aripiprazole 30 Mg Tablet PO 30 mg BEDTIME CANDY Administration Magnesium Hydroxide 30 ml 09/04/20 02:25 Milk Of Magnesia 30 Ml Oral.Susp PO DAILY PRN Constipation Mirtazapine 45 mg 09/04/20 21:00 09/19/20 21:03 Mirtazapine 15 Mg Tablet PO 45 mg BEDTIME CANDY Administration Pharmacy Consult 1 each 09/03/20 15:54 Consult Rx Perform Med Rec MISCELLANE ONCE PRN Consult order Allergies Allergies Allergy/AdvReac Type Severity Reaction Status Date / Time bee pollen [BEE STINGS] Allergy Unknown ARM Verified 02/03/20 00:43 SWELLING codeine [CODEINE] Allergy Unknown HIVES, Verified 02/03/20 00:43 NAUSEA sertraline [From Zoloft] AdvReac Intermediate confusion Unverified 09/18/20 13:52 paroxetine [From Paxil] AdvReac Confusion Unverified 09/18/20 13:53 bee stings Allergy Unknown Swelling Uncoded 02/03/20 00:43 Assessment & Plan Assessment & Plan (1) Major depression, recurrent, chronic: Status: Acute Code(s): F33.9 - Major depressive disorder, recurrent, unspecified Assessment and Plan: . (2) Delirium: Status: Acute Code(s): R41.0 - Disorientation, unspecified Assessment and Plan: (3) Dementia: Status: Acute Code(s): F03.90 - Unspecified dementia without behavioral disturbance Assessment and Plan: IMPRESSION: 69-year-old male with a past medical history of hepatitis-C, hypertension, depression, polysubstance abuse, seizures, presenting for severe depression, Patient denies SI; unclear how much of home medications patient was consistently taking however he was continued on home med of Abilify, increased Remeron and added Zoloft. Hospital course: -Patient began to improve, eating better, sleeping well and depression slowly resolving; no SI -on 09/15/20 -emerging confusion which seems to have correlated with increased Zoloft dose from 75 mg to 100 mg -patient lost orientation to place and situation, thinking he was working, thinking his was here, thinking he was at a school etcetera -labs/vitals within normal limits -case discussed with Dr. Guo, Dr. Rivas (and other psychiatric staff) who agreed that patient has underlying dementia and that even small increase in Zoloft could be enough to tip patient into delirium: Another possible factor was tapering off and discontinuing gabapentin, however patient had been okay during tapering process. Recommended holding off Zoloft and then restarting it at a lower dose to avoid discontinuation syndrome. Delirium seems to be resolving: Depression anxiety remain but patient consistently says they have improved; will discuss with team and patient's partner, Ronna, disposition planning. He reports his mood is okay and he is adherent with meds, tolerating them well. Denies acute stressors or anxiety. PLAN: 1. Delirium: Appears to be resolving Likely due to mild serotonin syndrome as confusion coincided with increased Zoloft and has seemed to resolve with discontinuation of Zoloft -held Zoloft for 1 day; will give 25 mg on 09/18 to avoid discontinuation syndrome and then discontinue; Ronna, patient's partner reported to social media sr strategy manager that he has a history of getting confused Zoloft and Paxil. Zoloft is not discontinued. -encourage hydration -Q 5 safety checks -continue to monitor Confusion started on 09/14 and seemed to coincide with increased dose of Zoloft from 75 to 100 mg Vitals are WNL; CBC, lytes, kidney function within normal limits, ammonia is within normal limits; UA unremarkable. -autonomically stable making and NMS less likely (WBC wnl); if patient does not improve will check for further labs -no muscle rigidity or hyper flexibility 2. Depression continue abilify 30 mg Qhs. pt reportedly has a h/o psychosis; also perhaps useful as adjunctive anti-depressant. continue HS remeron to 45 mg (increased on 09/04 for insomnia and depression). Discontinue Zoloft; held for 1 day then plan to give 25 mg to avoid discontinuation syndrome then DC -will consider starting another SSRI, although he is denying acute sx of depression, anxiety. tapered and dc'd gabapentin milue therapy; helping pt to go to groups 3. Dementia, unspecified: [place]: Though patient's current depression is a possible factor, patient has long history of intermittent substance abuse, severe depression, poor attention to health care, diet; innactive lifestyle; Ronna, his partner reported to social Work that he does forget what day of the week it is pretty frequently Assessment and Plan: No change to the above plan Greater than 50% of the session was spent on counseling and/or coordination of care Reason for contiued inpatient stay Substantial Risk for: med/psych decompensation
[2020-09-20] MEDS: Mirtazapine 15 MG TABLET 45 MG PO (20:58)
[2020-09-20] MEDS: ARIPiprazole 30 MG TABLET PO (20:58)
[2020-09-21 06:00] VITALS: BP 98/58; PULSE 97; RESP 18; TEMP 36.1; O2SAT 98
--- NOTE | 2020-09-21 14:16 | HO.PSYCHPN ---
Subjective Subjective Date of Service: 09/22/20 Reason For Visit: SI Subjective Notes: Conditional Voluntary Interim History: Patient seen and discussed with team. Patient evaluated this morning and upon interview he states he is okay. Says his sleep is good. medical staff services coordinator were able to assist him in showering, brushing his hair. Per medical staff services coordinator, he reported his depression is a 5/10. He is sleeping and eatingwell, still not participating in groups. Has been isolative in his room, lying down in bed, energy is low. In the milieu, patient is safe in behavior. Denies SI/SIB/HI upon inquiry. Denies irritability or assaultive ideation. Says he feels safe. Mental Status Exam Mental Status Exam Narrative: Pt is alert; he is oriented to self, place, time and situation; behavior is cooperative, talking more spontaneously; dressed in hospital gown, scruffy and unkempt; mood is described as okay. ?Affect remains brighter; eye contact is adequate; Speech normal rate, volume and prosody and not pressured; no psychomotor retardation or agitation; thought process is goal directed though concrete; Thought content somewhat vacuous but relevant to?writers questions and current situation; not making confused statements; denies SI or HI; no paranoid ideations or grandiosity; There is no evidence of perceptual disturbance.? Patients insight and judgment improving. Diagnostics Vital Signs (24Hr): Vital Signs - 24 hr 09/20/20 16:22 09/21/20 06:00 Temperature 98.2 F 96.9 F Pulse Rate 94 97 Respiratory Rate 18 Blood Pressure 103/61 98/58 L Pulse Oximetry 98 Body Mass Index 22.0 Labs Results: 09/15/20 12:37 09/15/20 12:37 Imaging Radiology Impressions: ITS Impressions Chest X-Ray 09/03/20 19:14 IMPRESSION: No radiographic evidence of acute cardiopulmonary disease. Medications Medications Current Medications Generic Name Dose Route Start Last Admin Trade Name Freq PRN Reason Stop Dose Admin Acetaminophen 650 mg 09/04/20 02:25 Acetaminophen 325 Mg Tablet PO Q6H PRN Headache/Pain Mild Scale (1-3) Al Hydroxide/Mg Hydroxide 30 ml 09/04/20 02:25 Magnesium Hydrox/Alum Hydrox 30 Ml Oral.Susp PO Q6H PRN Heartburn/Nausea Aripiprazole 30 mg 09/04/20 21:00 09/20/20 20:58 Aripiprazole 30 Mg Tablet PO 30 mg BEDTIME CANDY Administration Magnesium Hydroxide 30 ml 09/04/20 02:25 Milk Of Magnesia 30 Ml Oral.Susp PO DAILY PRN Constipation Mirtazapine 45 mg 09/04/20 21:00 09/20/20 20:58 Mirtazapine 15 Mg Tablet PO 45 mg BEDTIME CANDY Administration Pharmacy Consult 1 each 09/03/20 15:54 Consult Rx Perform Med Rec MISCELLANE ONCE PRN Consult order Allergies Allergies Allergy/AdvReac Type Severity Reaction Status Date / Time bee pollen [BEE STINGS] Allergy Unknown ARM Verified 02/03/20 00:43 SWELLING codeine [CODEINE] Allergy Unknown HIVES, Verified 02/03/20 00:43 NAUSEA sertraline [From Zoloft] AdvReac Intermediate confusion Unverified 09/18/20 13:52 paroxetine [From Paxil] AdvReac Confusion Unverified 09/18/20 13:53 bee stings Allergy Unknown Swelling Uncoded 02/03/20 00:43 Assessment & Plan Assessment & Plan (1) Major depression, recurrent, chronic: Status: Acute Code(s): F33.9 - Major depressive disorder, recurrent, unspecified Assessment and Plan: . (2) Delirium: Status: Acute Code(s): R41.0 - Disorientation, unspecified Assessment and Plan: (3) Dementia: Status: Acute Code(s): F03.90 - Unspecified dementia without behavioral disturbance Assessment and Plan: IMPRESSION: 69-year-old male with a past medical history of hepatitis-C, hypertension, depression, polysubstance abuse, seizures, presenting for severe depression, Patient denies SI; unclear how much of home medications patient was consistently taking however he was continued on home med of Abilify, increased Remeron and added Zoloft. Hospital course: -Patient began to improve, eating better, sleeping well and depression slowly resolving; no SI -on 09/15/20 -emerging confusion which seems to have correlated with increased Zoloft dose from 75 mg to 100 mg -patient lost orientation to place and situation, thinking he was working, thinking his was here, thinking he was at a school etcetera -labs/vitals within normal limits -case discussed with Dr. Guo, Dr. Rivas (and other psychiatric staff) who agreed that patient has underlying dementia and that even small increase in Zoloft could be enough to tip patient into delirium: Another possible factor was tapering off and discontinuing gabapentin, however patient had been okay during tapering process. Recommended holding off Zoloft and then restarting it at a lower dose to avoid discontinuation syndrome. Delirium seems to be resolving: Depression anxiety remain but patient consistently says they have improved; will discuss with team and patient's partner, Ronna, disposition planning. He reports his mood is okay and he is adherent with meds, tolerating them well. Denies acute stressors or anxiety. Does not have questions or concerns, no med changes made at this time. PLAN: 1. Delirium: Appears to be resolving Likely due to mild serotonin syndrome as confusion coincided with increased Zoloft and has seemed to resolve with discontinuation of Zoloft -held Zoloft for 1 day; will give 25 mg on 09/18 to avoid discontinuation syndrome and then discontinue; Ronna, patient's partner reported to social work coordinator that he has a history of getting confused Zoloft and Paxil. Zoloft is not discontinued. -encourage hydration -Q 5 safety checks -continue to monitor Confusion started on 09/14 and seemed to coincide with increased dose of Zoloft from 75 to 100 mg Vitals are WNL; CBC, lytes, kidney function within normal limits, ammonia is within normal limits; UA unremarkable. -autonomically stable making and NMS less likely (WBC wnl); if patient does not improve will check for further labs -no muscle rigidity or hyper flexibility 2. Depression continue abilify 30 mg Qhs. pt reportedly has a h/o psychosis; also perhaps useful as adjunctive anti-depressant. continue HS remeron to 45 mg (increased on 09/04 for insomnia and depression). Discontinue Zoloft; held for 1 day then plan to give 25 mg to avoid discontinuation syndrome then DC -will consider starting another SSRI, although he is denying acute sx of depression, anxiety. tapered and dc'd gabapentin milue therapy; helping pt to go to groups 3. Dementia, unspecified: [place]: Though patient's current depression is a possible factor, patient has long history of intermittent substance abuse, severe depression, poor attention to health care, diet; innactive lifestyle; Ronna, his partner reported to social Work that he does forget what day of the week it is pretty frequently Assessment and Plan: No change to the above plan Greater than 50% of the session was spent on counseling and/or coordination of care Reason for contiued inpatient stay Substantial Risk for: rapid decompensation and med/psych decompensation
[2020-09-21 16:39] VITALS: BP 106/57; PULSE 98; TEMP 36.7
[2020-09-21] MEDS: Mirtazapine 15 MG TABLET 45 MG PO (20:59)
[2020-09-21] MEDS: ARIPiprazole 30 MG TABLET PO (20:59)
[2020-09-22 06:00] VITALS: BP 98/61; PULSE 119
[2020-09-22 17:14] VITALS: BP 102/58; PULSE 102; RESP 18; TEMP 36.3; O2SAT 98
--- NOTE | 2020-09-22 17:18 | HO.PSYCHPN ---
Subjective Subjective Date of Service: 09/23/20 Reason For Visit: SI Interim History: Met with patient and socially responsible investment adviser. Patient reports that he is doing a lot better. He says his depression remains but much less intense as is his anxiety and that he remains without any SI; patient says he continues to eat and sleep well. Patient said that he thinks he is ready to go home. Switchboard Manager reviewed medications with patient and he feels current regimen is adequate and does not want any further changes. Mental Status Exam Mental Status Exam Narrative: Pt is alert; he is oriented to self, place, time and situation; behavior is cooperative, calm, friendly; he's dressed in hospital gown, scruffy; mood is described as alright...a lot better. ?Affect remains brighter; eye contact is adequate; Speech normal rate, volume and prosody and not pressured; no psychomotor retardation or agitation; thought process is goal directed though concrete; Thought content on being ready for discharge and relevant to?writers questions and current situation; denies SI or HI; no paranoid ideations or grandiosity; There is no evidence of perceptual disturbance.? Patients insight and judgment fair.. Diagnostics Vital Signs (24Hr): Vital Signs - 24 hr 09/22/20 06:00 09/22/20 17:14 Temperature 97.3 F Pulse Rate 119 H 102 H Respiratory Rate 18 Blood Pressure 98/61 102/58 L Pulse Oximetry 98 Body Mass Index 22.0 Labs Results: 09/15/20 12:37 09/15/20 12:37 Imaging Radiology Impressions: ITS Impressions Chest X-Ray 09/03/20 19:14 IMPRESSION: No radiographic evidence of acute cardiopulmonary disease. Medications Medications Current Medications Generic Name Dose Route Start Last Admin Trade Name Freq PRN Reason Stop Dose Admin Acetaminophen 650 mg 09/04/20 02:25 Acetaminophen 325 Mg Tablet PO Q6H PRN Headache/Pain Mild Scale (1-3) Al Hydroxide/Mg Hydroxide 30 ml 09/04/20 02:25 Magnesium Hydrox/Alum Hydrox 30 Ml Oral.Susp PO Q6H PRN Heartburn/Nausea Aripiprazole 30 mg 09/04/20 21:00 09/21/20 20:59 Aripiprazole 30 Mg Tablet PO 30 mg BEDTIME CANDY Administration Magnesium Hydroxide 30 ml 09/04/20 02:25 Milk Of Magnesia 30 Ml Oral.Susp PO DAILY PRN Constipation Mirtazapine 45 mg 09/04/20 21:00 09/21/20 20:59 Mirtazapine 15 Mg Tablet PO 45 mg BEDTIME CANDY Administration Pharmacy Consult 1 each 09/03/20 15:54 Consult Rx Perform Med Rec MISCELLANE ONCE PRN Consult order Allergies Allergies Allergy/AdvReac Type Severity Reaction Status Date / Time bee pollen [BEE STINGS] Allergy Unknown ARM Verified 02/03/20 00:43 SWELLING codeine [CODEINE] Allergy Unknown HIVES, Verified 02/03/20 00:43 NAUSEA sertraline [From Zoloft] AdvReac Intermediate confusion Unverified 09/18/20 13:52 paroxetine [From Paxil] AdvReac Confusion Unverified 09/18/20 13:53 bee stings Allergy Unknown Swelling Uncoded 02/03/20 00:43 Assessment & Plan Assessment & Plan (1) Major depression, recurrent, chronic: Status: Acute Code(s): F33.9 - Major depressive disorder, recurrent, unspecified Assessment and Plan: . (2) Delirium: Status: Acute Code(s): R41.0 - Disorientation, unspecified Assessment and Plan: (3) Dementia: Status: Acute Code(s): F03.90 - Unspecified dementia without behavioral disturbance Assessment and Plan: IMPRESSION: 69-year-old male with a past medical history of hepatitis-C, hypertension, depression, polysubstance abuse, seizures, presenting for severe depression, Patient denies SI; unclear how much of home medications patient was consistently taking however he was continued on home med of Abilify, increased Remeron and added Zoloft. Hospital course: -Patient began to improve, eating better, sleeping well and depression slowly resolving; no SI -on 09/15/20 -emerging confusion which seems to have correlated with increased Zoloft dose from 75 mg to 100 mg -patient lost orientation to place and situation, thinking he was working, thinking his was here, thinking he was at a school etcetera -labs/vitals within normal limits -case discussed with Dr. Guo, Dr. Rivas (and other psychiatric staff) who agreed that patient has underlying dementia and that even small increase in Zoloft could be enough to tip patient into delirium: Another possible factor was tapering off and discontinuing gabapentin, however patient had been okay during tapering process. Recommended holding off Zoloft and then restarting it at a lower dose to avoid discontinuation syndrome. Delirium fully resolved Depression and anxiety improved; no SI. pt reports ready to go home PLAN: 1. Delirium: fully resolved Likely due to mild serotonin syndrome as confusion coincided with increased Zoloft and has seemed to resolve with discontinuation of Zoloft -held Zoloft for 1 day; will give 25 mg on 09/18 to avoid discontinuation syndrome and then discontinue; Ronna, patient's partner reported to socially responsible investment adviser that he has a history of getting confused Zoloft and Paxil. Zoloft is not discontinued. -encourage hydration -Q 5 safety checks -continue to monitor Confusion started on 09/14 and seemed to coincide with increased dose of Zoloft from 75 to 100 mg Vitals are WNL; CBC, lytes, kidney function within normal limits, ammonia is within normal limits; UA unremarkable. -autonomically stable making and NMS less likely (WBC wnl); if patient does not improve will check for further labs -no muscle rigidity or hyper flexibility 2. Depression improved continue abilify 30 mg Qhs. pt reportedly has a h/o psychosis; also perhaps useful as adjunctive anti-depressant. continue HS remeron to 45 mg (increased on 09/04 for insomnia and depression). Discontinue Zoloft; tapered and dc'd gabapentin: Patient denies history of seizures except for 1 time during withdrawal milue therapy; helping pt to go to groups 3. Dementia, unspecified: Love: Though patient's current depression is a possible factor, patient has long history of intermittent substance abuse, severe depression, poor attention to health care, diet; innactive lifestyle; Ronna, his partner reported to social Work that he does forget what day of the week it is pretty frequently Assessment and Plan: No change to the above plan Greater than 50% of the session was spent on counseling and/or coordination of care Reason for contiued inpatient stay Substantial Risk for: stable for discharge
[2020-09-23 06:00] VITALS: BP 101/63; PULSE 84; RESP 18; TEMP 36.9; O2SAT 98
--- NOTE | 2020-09-23 12:12 | P.DS_ITS ---
DS: Providers Provider Date of Service: 09/23/20 Date of admission: 09/04/20 02:25 Date of discharge: 09/23/20 Primary care physician: [facility] Attending physician on admission: Giorgi Alcantara Attending physician on discharge: Giorgi Alcantara DS: Diagnosis Discharge Diagnosis (1) Major depression, recurrent, chronic: Status: Deleted (2) Delirium: Status: Resolved (3) Dementia: Status: Acute DS: Medications Discharge Medications Home Medications: Previous Rx's Medication Instructions Recorded aripiprazole 30 mg tablet 30 mg PO BEDTIME 30 Days #30 tab 09/23/20 mirtazapine 30 mg tablet 30 mg PO BEDTIME 30 Days #30 tab 09/23/20 Mental Status Exam Mental Status Exam Narrative: Pt is alert; he is oriented to self, place, time and situation; behavior is cooperative, calm, friendly; he's dressed casual cloths; scruffy facial hair; mood is described as alright...a lot better. ?Affect remains brighter; eye contact is adequate; Speech normal rate, volume and prosody and not pressured; no psychomotor retardation or agitation; thought process is goal directed though concrete; Thought content on being ready for discharge and relevant to?writers questions and current situation; denies SI or HI; no paranoid ideations or grandiosity; There is no evidence of perceptual disturbance.? Patients insight and judgment fair.. Data Imaging Diagnostic Imaging Impressions Chest X-Ray 09/03/20 19:14 IMPRESSION: No radiographic evidence of acute cardiopulmonary disease. DS: Summary Hospital Course Hospital Course: 69-year-old male with a past medical history of hepatitis-C, hypertension, depression, polysubstance abuse, withdrawal seizures, presenting for severe depression with SI, not eating much and not sleeping well. Pt signed CV On admission, pt's mirtazapine was increased and he was started on Zoloft which was titrated. His gabapentin was tappered and dc'd to which pt agreed, since he had no seizure hx other than w/drawal or c/o of neuropathy. On unit he was depressed but SI had fully resolved. He soon began eating well and sleeping well. His depression remained but slowly improved. His Zoloft was titrated to 75 mg which he tolerated well. Although he had improved, he agreed to further titration of Zoloft to 100 mg for anxiety and depression however soon after doing this patient became disoriented and delirious, diagnosed with a mild case of serotonin syndrome which fully resolved after this medication was tapered and discontinued (all other workup unremarkable; vitals WNL). Even though patient was no longer on Zoloft, he did not want any other medication adjustments and his depression remained significantly better. Patient was given a Lucas exam (21?) and diagnosed with unspecified dementia which he said he was not surprised to learn but did not want any medications for this. Patient's long- time partner, Ronna was involved in case discussions and felt that patient was pretty much at baseline. Patient said he felt ready to go home. He continued to deny any SI, reported he was still eating and sleeping well and that his depression and anxiety were significantly ?better.? Patient said he felt good living with Ronna who cares for him and is supportive and wanted to return to her Patient was not it imminent risk for harm to self or others and appropriate for discharge. Status at Discharge Functional status at discharge: independent ambulation Overall status at discharge: patient is back to baseline Time Spent with Patient Time attestation: Total time spent providing and/or coordinating discharge services: Time spent: Greater than 30 minutes Discharge Plan Discharge Patient Disposition: Home, Self-Care Discharge Diagnosis: MDD, recurrent, severe in partial remission Referrals: [facility] [Other] - 09/16/20 ( [facility] will resume services on 09/16/20 They will come to visit the afternoon of your discharge. ) Kristopher Murphy (medication management) [Other] - 09/25/20 10:00 am (This appointment is over the phone) Lily Mcmillan ([facility] [employer]) [Other] - 1 Week (Please contact Mis if you have questions about your aftercare plan. She will give you a call within the week of your discharge) Jenny Hwang (therapy) [Other] - 09/25/20 12:00 pm (This appointment is over the phone. Jenny will contact you directly at the time of your appointment) Germania Fuentes ([facility]) [Other] - 09/24/20 9:00 am (Germania Fuentes will come to your home to complete the in-home assessment for services you may be eligible for) Judy Morris NP [Nurse Practitioner] - 10/03/20 3:00 pm (in office visit ) Discharge Medications: New mirtazapine 15 mg Tablet 45 mg PO BEDTIME 30 Days Qty: 90 RF: 0 Changed aripiprazole 30 mg tablet 30 mg PO BEDTIME 30 Days Qty: 30 RF: 0 Discontinued mirtazapine 30 mg Tablet 30 mg PO BEDTIME Qty: 15 RF: 1 gabapentin 400 mg capsule 400 mg PO BID RF: 0 Discharge Orders: Discharge Order (Routine); Ordered 09/23/20 Ordered By: Giorgi Alcantara Diet: regular diet Activity on Discharge: As tolerated Stand Alone Forms: Patient Portal Discharge page, Community Support Care Plan Goals: Maintain mood and safe behaviors Take medications as prescribed Practice coping skills Continue with outpatient providers and reach out to them as needed ? Health Concerns: Mood instability and behaviors Depression Plan of Treatment: Follow up with your psychiatric provider regarding above concerns Take medications as prescribed Assessment: Risk assessment at time of discharge:? Patient was interviewed prior to discharge and found to be fully oriented and without any SI or HI. Patient has insight and demonstrates good judgment in ter ms of wanting to pursue treatment. Patient is not in imminent risk of harm to self or others and has a safety plan that includes reaching out to his partner Ronna, presenting to the closest ER or calling 911 if feeling unsafe.? Patient has been observed closely by nursing and unit staff throughout admission; patient has not engaged in any behaviors that suggest dangerousness to self or others and has demonstrated appropriate behaviors and impulse control. Discharge Date/Time: 09/16/20 14:05
== END 2020-09-16 14:05 | disposition home or self-care (01) | DRG 885 ==
LOC: HO.ED 09-04 02:01 → HO.PM5 09-04 02:29
PROVIDERS: Physician Assistant; Admitting Provider Social Worker; Emergency Provider Emergency Medicine; Visit Provider Psychiatry & Neurology Psychiatry
DX: F33.9 Major depressive disorder, recurrent, unspecified (principal); F05 Delirium due to known physiological condition; F03.90 Unspecified dementia, unspecified severity, without behavioral disturbance, psychotic disturbance, mood disturbance, and anxiety; T43.595A Adverse effect of other antipsychotics and neuroleptics, initial encounter; Y92.239 Unspecified place in hospital as the place of occurrence of the external cause; Z20.822 Contact with and (suspected) exposure to COVID-19; Z88.5 Allergy status to narcotic agent; Z79.899 Other long term (current) drug therapy
CPT/HCPCS: 36415; 71045; 80048; 80051; 80061; 80076; 80307; 81001; 81003; 82140; 82565; 82607; 82746; 83036; 83690; 83735; 84443; 84520; 85025; 87635; 93005; 99285

== ENCOUNTER 2020-09-29 09:53 | Emergency (ER) | payer OTHER, SELFPAY ==
--- NOTE | ~2020-09-29 | XR_ITS ---
EXAMINATION: XR CHEST CLINICAL INFORMATION: Chest pain, question pneumonia COMPARISON: 09/03/2020 TECHNIQUE: Frontal view of the chest was obtained. FINDINGS: The cardiomediastinal silhouette is within normal limits. Lungs are clear without consolidation, pleural effusion or pneumothorax. XR/XR chest 1V IMPRESSION: No acute cardiopulmonary process.
[2020-09-29 10:04] VITALS: BP 96/60; PULSE 74; RESP 18; TEMP 36.8; O2SAT 96; BMI 20.7
[2020-09-29 11:27] VITALS: BP 92/57; PULSE 58; RESP 15; O2SAT 98
[2020-09-29 11:38] LABS: MANUAL DIFF FLAG NO
[2020-09-29 11:42] LABS: Basophils Percent Auto 0.4 % (0-2); Eosinophils Absolute Auto 0.1 X10*3/uL (0.0-0.4); Eosinophils Percent Auto 1.9 % (0-4); Hematocrit 45.3 % (42-52); Hemoglobin 14.2 g/dl (14.0-18.0); Imm Gran Abs Auto 0.01 X10*3/uL (0.00-0.03); Imm Gran Pct Auto 0.1 % (0.0-0.4); Lymphocytes Absolute Auto 2.1 X10*3/uL (1.2-4.9); Lymphocytes Percent Auto 31.2 % (20-40); Mean Corpuscular HGB Conc 31.3 g/dl (31.0-36.0); Mean Corpuscular Hemoglobin 27.3 pg (27.0-33.0); Mean Corpuscular Volume 86.9 fL (80-98); Mean Platelet Volume 10.7 fL (9.4-12.4); Monocytes Absolute Auto 0.7 X10*3/uL (0.1-1.2); Monocytes Percent Auto 9.6 % (2-11); Neutrophils Absolute Auto 3.9 X10*3/uL (2.0-8.3); Neutrophils Percent Auto 56.8 % (45-73); Platelet Count 274 X10*3/uL (160-400); Red Blood Count 5.21 X10*6/uL (4.60-5.80); White Blood Count 6.9 X10*3/uL (4.8-10.8)
--- NOTE | 2020-09-29 12:06 | ED.GENADULT ---
HPI - General Adult General Chief complaint: General Medical Stated complaint: CRISIS Time Seen by Provider: 09/29/20 10:53 Source: patient Mode of arrival: ambulatory Limitations: no limitations History of Present Illness HPI narrative: Patient brought to the ED for safety concerns. Patient was brought to the ED for safe placement. Patient's girlfriend was found in the bathroom small eating cigarette butts and sitting in own feces and urine. Girlfriend has been there for 1 month. House was not well kept. Patient himself is clean and not in any distress. Patient denies any psychological or physical complaints. Police officers do not think it was safe for the patient to be home alone. Related Data Previous Rx's Medication Instructions Recorded aripiprazole 30 mg tablet 30 mg PO BEDTIME 30 Days #30 tab 09/23/20 mirtazapine 15 mg tablet 45 mg PO BEDTIME 30 Days #90 tab 09/23/20 Allergies Allergy/AdvReac Type Severity Reaction Status Date / Time bee pollen [BEE STINGS] Allergy Unknown ARM Verified 02/03/20 00:43 SWELLING codeine [CODEINE] Allergy Unknown HIVES, Verified 02/03/20 00:43 NAUSEA sertraline [From Zoloft] AdvReac Intermediate confusion Unverified 09/18/20 13:52 paroxetine [From Paxil] AdvReac Confusion Unverified 09/18/20 13:53 bee stings Allergy Unknown Swelling Uncoded 02/03/20 00:43 Review of Systems Constitutional: Constitutional: Reports as per HPI and Reports no additional constitutional complaints Eyes: Eyes: Reports as per HPI and Reports no additional eye complaints ENT: Reports system reviewed and no additional complaints, except as documented and Reports as per HPI Cardiovascular: Cardiovascular: Reports as per HPI and Reports no additional cardiovascular complaints Respiratory: Respiratory: Reports as per HPI and Reports no additional respiratory complaints Gastrointestinal: Gastrointestinal: Reports as per HPI and Reports no additional gastrointestinal complaints Genitourinary: Genitourinary: Reports no additional male genitourinary complaints and Reports as per HPI Musculoskeletal: Musculoskeletal: Reports no additional musculoskeletal complaints and Reports as per HPI Neurologic: Reports system reviewed and no additional complaints, except as documented and Reports as per HPI Psychiatric: Psychiatric: Reports no additional psychiatric complaints and Reports as per HPI [facility] Past Medical History Medical History (Updated 09/29/20 @ 17:45 by NEVA Bliss) Auditory hallucinations Dementia Hepatitis C Hypertension Major depressive disorder, recurrent, severe with psychotic features Polysubstance abuse Seizures Social History Social History Household Members: Significant Other Housing: Apartment Do you presently have visiting nurse or other home services: Yes Alcohol intake: never Patient Tobacco Use Status: Former Tobacco user Cigarette Packs Per Day: 1 Cigarettes Per Day: 20.0 Years Smoked: life long smoker Second Hand Smoke Exposure: Yes Use of substances other than those prescribed or required for medical reasons: No Substance Use Type: Unknown Advance Directives: No Advance Directives Information Provided: No service: No Sexual orientation: Straight/Heterosexual Physical Exam Vital Signs: Vital Signs: Last Vital Signs Temp 97.6 F 09/29/20 16:57 Pulse 57 09/29/20 16:57 Resp 16 09/29/20 16:57 BP 98/56 L 09/29/20 16:57 Pulse Ox 96 09/29/20 16:57 Body Mass Index 20.7 Const: General: cooperative, healthy appearing, comfortable, no acute distress, well developed, alert and awake Orientation/consciousness: patient oriented x3 HENMT: Head: Yes normal to inspection, Yes No palpable skull fracture present, Yes normocephalic and Yes atraumatic Eyes: General: appearance normal, both eyes and all related structures Neck: Neck: Yes normal visual inspection, Yes full ROM, Yes no lymphadenopathy, Yes no meningeal signs, Yes trachea midline, Yes supple and No tender Chest: Chest palpation & inspection: normal inspection of the chest and normal palpation of entire chest wall Resp: Effort & Inspection: normal respiratory effort and able to speak in complete sentences Auscultation: clear to auscultation bilaterally Cardio: Jugular venous distension: no JVD Heart sounds: S1 normal heart sound present and S2 normal heart sound present GI: Inspection: Yes normal to inspection and No abdominal wall ecchymosis Palpation (GI): Soft to palpation, not firm, nontender and no guarding : General: No CVA tenderness and Yes no CVA tenderness Back/Spine/Pelvis: Back: no CVA tenderness, No CVA tenderness and No back tenderness Skin: General skin exam: no rashes or lesions noted and elasticity normal Neuro: General: patient oriented x3, gait normal, no meningeal signs and CN's II-XI intact bilaterally Cranial nerves: Yes CN's II-XII intact bilaterally Extrem: General: Yes normal to inspection and Yes full ROM Psych: Appearance: grossly normal, well kempt and not disheveled Course Course Course Narrative: Spoke with nurse case management Patricia. Plan is for basic labs and care team/PT evaluation. Reevaluation(s) Reevaluation #1: Patient labs are normal. Patient will stay overnight for placement Time: 17:44 Medical Decision Making Lab Data Result diagrams: 09/29/20 11:34 09/29/20 11:34 Labs: Lab Results 09/29/20 09/29/20 09/29/20 Range/Units 11:34 11:34 12:05 WBC 6.9 (4.8-10.8) X10*3/uL RBC 5.21 (4.60-5.80) X10*6/uL Hgb 14.2 (14.0-18.0) g/dl Hct 45.3 (42-52) % MCV 86.9 (80-98) fL MCH 27.3 (27.0-33.0) pg MCHC 31.3 (31.0-36.0) g/dl RDW 14.0 (11.0-16.0) % Plt Count 274 (160-400) X10*3/uL MPV 10.7 (9.4-12.4) fL Immature Gran % (Auto) 0.1 (0.0-0.4) % Neut % (Auto) 56.8 (45-73) % Lymph % (Auto) 31.2 (20-40) % Ocean % (Auto) 9.6 (2-11) % Eos % (Auto) 1.9 (0-4) % Baso % (Auto) 0.4 (0-2) % Lymph # (Auto) 2.1 (1.2-4.9) X10*3/uL Ocean # (Auto) 0.7 (0.1-1.2) X10*3/uL Eos # (Auto) 0.1 (0.0-0.4) X10*3/uL Baso # (Auto) 0.0 (0.0-0.2) X10*3/uL Abs Immat Gran (auto) 0.01 (0.00-0.03) X10*3/uL Absolute Neuts (auto) 3.9 (2.0-8.3) X10*3/uL Absolute Nucleated RBC 0.000 (0.0-0.012) X10*3/uL Nucleated RBC % (auto) 0.0 (0.0-0.2) /100WBC Sodium 142 (135-145) mmol/L Potassium 4.3 (3.3-5.1) mmol/L Chloride 107 (96-108) mmol/L Carbon Dioxide 27 (22-29) mmol/L Anion Gap 12 (12-20) BUN 12 (9-16) mg/dL Creatinine 0.77 (0.5-1.4) mg/dL Estim Creat Clear Calc 81.3 Estimated GFR > 60 Random Glucose 92 D (60-115) mg/dL Calcium 9.1 (8.4-10.2) mg/dL Total Bilirubin 0.5 (0.0-1.0) mg/dL Direct Bilirubin 0.2 (0.0-0.5) mg/dL AST 21 (5-37) U/L ALT 17 (0-40) U/L Alkaline Phosphatase 50 (39-117) U/L Total Protein 6.5 (6.5-8.0) g/dL Albumin 3.9 (3.5-5.0) g/dL COVID-19 (SUKI) Negative (Negative) COVID-19 Clin Com See Note Discharge Plan Discharge Clinical Impression: Dementia Prescriptions: No [facility] aripiprazole 30 mg tablet 30 mg PO BEDTIME 30 Days Qty: 30 RF: 0 mirtazapine 15 mg Tablet 45 mg PO BEDTIME 30 Days Qty: 90 RF: 0
[2020-09-29 12:09] LABS: Alanine Aminotransferase 17 U/L (0-40); Albumin Level 3.9 g/dL (3.5-5.0); Alkaline Phosphatase 50 U/L (39-117); Anion Gap 12 (12-20); Aspartate Amino Transferase 21 U/L (5-37); Bilirubin Direct 0.2 mg/dL (0.0-0.5); Bilirubin Total 0.5 mg/dL (0.0-1.0); Blood Urea Nitrogen 12 mg/dL (9-16); Calcium 9.1 mg/dL (8.4-10.2); Carbon Dioxide 27 mmol/L (22-29); Chloride 107 mmol/L (96-108); Creatinine Clr Calc Pharmacy 81.3; Estimated Glomerular Filt Rate > 60; Glucose Random 92 mg/dL (60-115); Potassium 4.3 mmol/L (3.3-5.1); Sodium 142 mmol/L (135-145); Total Protein 6.5 g/dL (6.5-8.0)
[2020-09-29 12:28] LABS: COVID-19 Test Negative (Negative); IDNOW Serial# 08D9AD1C
[2020-09-29 13:39] VITALS: BP 92/57; PULSE 58; O2SAT 98
--- NOTE | 2020-09-29 15:05 | MHC.CM.ED ---
Received case management consult received from Efraín HOOKS.Patient was sent to the ER from [facility]. ROSANNAA was out for a visit and found sig other in the bathroom requiring medical services. Sig other was transferred to [facility]. Patient was sent to [facility]. Work up essentially negative. However, it doesn't appear patient can safely go home at this time. T/W is attempting to obtain a HCP and Covid vaccine information. Referral had been broadcasted to all facilities within 20 miles that are contracted with patient's insurance.
--- NOTE | 2020-09-29 15:59 | PC.NURSE ---
plan for pt to stay over night for cm
[2020-09-29 16:57] VITALS: BP 98/56; PULSE 57; RESP 16; TEMP 36.4; O2SAT 96
[2020-09-29 20:00] VITALS: RESP 16
--- NOTE | 2020-09-29 20:02 | PC.NURSE ---
PT BLADDER SCANNED FOR >535 MLS, PROVIDER AWARE AND SCAN ON CHART. PT DENIES SENSATION OF NEEDING TO URINATE, PROVIDED KIP [place] AND INFORMED OF PLAN TO STRAIGHT CATH IF PT IS UNABLE TO VOID WITHIN THE NEXT 20 MINS. PT AMENABLE TO THIS PLAN.
[2020-09-30] VITALS (11 sets, daily range): BP systolic 79–113; BP diastolic 38–70; PULSE 53–67; RESP 14–18; TEMP 36.4–36.6; O2SAT 96–100
--- NOTE | 2020-09-30 11:15 | MHC.CM.ED ---
Patient remains in ER. Patient's sig other, Ronna is currently admitted at [facility] due to pancreatitis. Patient made aware of this. Patient agreeable to long term care at a retirement facility. Patient never received a Covid vaccine. Patient understands placement may be difficult due to this. HCP completed, signed and witnessed. Original given to patient. Copy placed in chart. Continue to monitor for d/c needs.
--- NOTE | 2020-09-30 11:18 | PC.NURSE ---
pt awake and alert, resting in bed. pt denies any needs at this time. pt aware of plan for rehab/SNF.
[2020-09-30 14:21] LABS: Glucose Urine UA NEG (NEG); Leukocyte Esterase Urine NEG (NEG); Nitrite Urine NEG (NEG); Specific Gravity - Urine 1.025 (1.005-1.025); Urine Blood NEG (NEG); Urine Ketones NEG (NEG); Urine Protein TRACE MG/DL (NEG-TRACE)
[2020-09-30 14:23] LABS: Appearance Urine CLEAR; Color Urine YELLOW
--- NOTE | 2020-09-30 15:33 | MHC.CM.ED ---
[facility] doesn't have a [facility] today. [facility] hasn't responded. [facility] will be on site tomorrow 10/11 at 11am to visit patient. Continue to monitor for d/c needs.
--- NOTE | 2020-09-30 17:15 | ECG_ITS ---
Test Reason : CHEST PAIN Blood Pressure : / mmHG Vent. Rate : 058 BPM Atrial Rate : 058 BPM P-R Int : 140 ms QRS Dur : 088 ms QT Int : 424 ms P-R-T Axes : 076 054 061 degrees QTc Int : 416 ms Sinus bradycardia Otherwise normal ECG When compared with ECG of 03-SEP-2020 16:33, Heart rate has decreased Referred By: Efraín Burkett Electronically Signed By:STEVEN HUYNH
[2020-09-30] MEDS: 0.9 % Sodium Chloride 1,000 ML 999 ML IV ×2 (17:42)
[2020-09-30 17:46] LABS: MANUAL DIFF FLAG NO
[2020-09-30 17:49] LABS: Basophils Absolute Auto 0.1 X10*3/uL (0.0-0.2); Basophils Percent Auto 0.8 % (0-2); Eosinophils Absolute Auto 0.1 X10*3/uL (0.0-0.4); Eosinophils Percent Auto 2.3 % (0-4); Hematocrit 45.2 % (42-52); Hemoglobin 14.3 g/dl (14.0-18.0); Imm Gran Abs Auto 0.01 X10*3/uL (0.00-0.03); Imm Gran Pct Auto 0.2 % (0.0-0.4); Lymphocytes Absolute Auto 2.5 X10*3/uL (1.2-4.9); Lymphocytes Percent Auto 40.1 % (20-40); Mean Corpuscular HGB Conc 31.6 g/dl (31.0-36.0); Mean Corpuscular Hemoglobin 27.6 pg (27.0-33.0); Mean Corpuscular Volume 87.1 fL (80-98); Mean Platelet Volume 10.7 fL (9.4-12.4); Monocytes Absolute Auto 0.7 X10*3/uL (0.1-1.2); Monocytes Percent Auto 11.9 % (2-11); Neutrophils Absolute Auto 2.8 X10*3/uL (2.0-8.3); Neutrophils Percent Auto 44.7 % (45-73); Platelet Count 266 X10*3/uL (160-400); Red Blood Count 5.19 X10*6/uL (4.60-5.80); Red Cell Distribution Width 13.8 % (11.0-16.0); White Blood Count 6.1 X10*3/uL (4.8-10.8)
[2020-09-30 17:55] LABS: Prothrombin Time 11.6 SEC (9.9-13.0)
[2020-09-30 17:58] LABS: Partial Thromboplastin Time 36.4 SEC (24.1-38.0)
[2020-09-30 18:13] LABS: B Type Natriuretic Peptide < 10 pg/mL (<100); Troponin-I High Sensitivity < 3.5 ng/L (<3.5-35.0)
[2020-09-30 18:17] LABS: Alanine Aminotransferase 18 U/L (0-40); Albumin Level 3.9 g/dL (3.5-5.0); Alkaline Phosphatase 51 U/L (39-117); Anion Gap 13 (12-20); Aspartate Amino Transferase 28 U/L (5-37); Bilirubin Total 0.5 mg/dL (0.0-1.0); Blood Urea Nitrogen 11 mg/dL (9-16); Calcium 9.4 mg/dL (8.4-10.2); Carbon Dioxide 27 mmol/L (22-29); Chloride 105 mmol/L (96-108); Creatinine Clr Calc Pharmacy 82.3; Estimated Glomerular Filt Rate > 60; Glucose Random 80 mg/dL (60-115); Potassium 4.6 mmol/L (3.3-5.1); Sodium 140 mmol/L (135-145); Total Protein 6.9 g/dL (6.5-8.0)
[2020-09-30 21:17] LABS: Troponin-I High Sensitivity 4.4 ng/L (<3.5-35.0)
[2020-10-01 05:51] VITALS: BP 135/70; PULSE 63; RESP 16; TEMP 36.6; O2SAT 98
[2020-10-01 07:49] VITALS: BP 95/64; PULSE 65; RESP 16; TEMP 36.9; O2SAT 97
--- NOTE | 2020-10-01 09:45 | MHC.CM.ED ---
Patient remains in ER. Kendal from [facility] will come on-site for a visit around 11am today. Continue to monitor for d/c needs.
--- NOTE | 2020-10-01 11:49 | MHC.CM.ED ---
Kendal from [facility] on site to visit patient. Continue to monitor for d/c needs.
[2020-10-01 12:25] VITALS: RESP 16
--- NOTE | 2020-10-01 13:52 | MHC.CM.ED ---
[facility] is in the process of obtaining insurance auth. Continue to monitor for d/c needs.
[2020-10-01 15:31] VITALS: BP 111/63; PULSE 71; RESP 14; TEMP 36.6; O2SAT 98
--- NOTE | 2020-10-01 16:07 | MHC.CM.ED ---
Insurance auth has been obtained. Patient will have dinner and then leave at 530pm. [facility] booked. Med nec with chart. Patient, Reva ADRIAN, Frannie STOUT and Jennifer HOOKS aware. Continue to monitor for d/c needs.
[2020-10-01] MEDS: ARIPiprazole 30 MG TABLET PO (16:20)
--- NOTE | 2020-10-01 17:03 | PC.NURSE ---
report given to nurse at [facility]. plan for transport at 530.
[2020-10-01 17:49] VITALS: BP 105/72; PULSE 58; RESP 15; TEMP 36.8; O2SAT 99
== END 2020-10-01 17:57 | disposition skilled nursing facility (03) ==
PROVIDERS: Physician Assistant; Emergency Provider Internal Medicine; PCP Internal Medicine
DX: F03.90 Unspecified dementia, unspecified severity, without behavioral disturbance, psychotic disturbance, mood disturbance, and anxiety (principal); Z20.822 Contact with and (suspected) exposure to COVID-19; I10 Essential (primary) hypertension; F33.3 Major depressive disorder, recurrent, severe with psychotic symptoms; F19.10 Other psychoactive substance abuse, uncomplicated; B19.20 Unspecified viral hepatitis C without hepatic coma; F17.210 Nicotine dependence, cigarettes, uncomplicated; Z79.899 Other long term (current) drug therapy
CPT/HCPCS: 36415; 71045; 80053; 81003; 82248; 82550; 83605; 83880; 84484; 85025; 85610; 85730; 87040; 87635; 93005; 96360; 97161; 99285